=== PATIENT | male | born 1945 | race Caucasian/White ===

== ENCOUNTER → 2018-03-20 10:56 | Outpatient (CLI) | payer MEDICARE, SELFPAY ==
[2018-03-20 12:25] LABS: AST(SGOT) 28 U/L (15-37); Alanine Aminotransfer ALT/SGPT 32 U/L (16-61); Albumin, Serum 3.7 g/dL (3.2-5.0); Alkaline Phosphatase 61 U/L (45-117); Bilirubin, Direct 0.17 mg/dL (0.00-0.30); Cholesterol 130 mg/dL (200); Globulin 2.9 g/dL (2.2-4.2); High Density Lipoprotein 36 mg/dL; Protein, Total 6.6 g/dL (6.4-8.2); Triglycerides 141 mg/dL; Very Low Density Lipoprotein 28 mg/dL (5-40)
--- NOTE | 2018-03-20 12:50 | RAD_ITS ---
STUDY: SWALLOWING STUDY REASON FOR EXAM: Male, 72 years old. Dysphagia. TECHNIQUE: The examination was performed with Speech Pathology in attendance. Under fluoroscopic observation, the patient ingested thin barium, thick barium, barium pudding, and barium coated cracker. FLUOROSCOPY TIME: 0:28 minutes/seconds. 1807 fluoroscopic images were obtained. RADIOLOGIST INVOLVEMENT: Radiologist was present and providing direct supervision. COMPARISON: None. FINDINGS: The following was observed during swallowing of the various mixtures of barium: Thin Barium: There was no evidence of aspiration or laryngeal penetration. Barium Pudding: There was no evidence of aspiration or laryngeal penetration. Barium Coated Cracker: There was no evidence of aspiration or laryngeal penetration. RAD/Swallowing Function w/Video IMPRESSION: Normal tailored barium swallow study. No evidence of increased risk for aspiration. The swallow study findings were discussed with the patient by the speech pathologist at the conclusion of the examination. Please see speech pathology report for more information and recommendations. Electronically Signed: Mark Ortiz MD at 15:17 EDT Tel [phone], Service support ,
--- NOTE | 2018-03-20 13:30 | SP.MBSS_ITS ---
PRIMARY / SECONDARY DIAGNOSIS: dysphagia (R13.10) REFERRING PHYSICIAN: Dr. Pb Osorio MD CURRENT DIET: regular textures, thin liquids DENTITION: WFL MENTAL STATUS: WNL RESPIRATORY STATUS: O2 via room air PREVIOUS MODIFIED BARIUM SWALLOW STUDY: REASON FOR REFERRAL: Patient is a 72 year old male referred for a modified barium swallow (MBS) study to objectively assess the Patients oropharyngeal swallow function under fluoroscopy secondary to reported intermittent coughing with both solids and liquids that has been somewhat progressive, both the Patient and the Patients significant other unable to definitively state progression of intensity or frequency, though report onset of occurrences well after diagnosis of hemifacial spasms (early ) MEDICAL HISTORY: Hemifacial spasms, coronary artery diseases status post myocardial infarction with stent placement (x1), gastroesophageal reflux disease, hypertension, hyperlipidemia, chronic back pain, depression, benign prostate hyperplasia, nephrolithiasis, overweight STUDY FINDINGS: Patient participated in a Modified Barium Swallow (MBS) study on 03/20/2018. Dr. Ortiz was the radiologist present for this evaluation. This study was recorded in the lateral view and images were sent to PACs for storage. The following consistencies were presented to this patient for analysis of oropharyngeal swallow function: thin liquids, pudding, and a regular textured, Dalila Doone cookie. Results of the MBS are as follows: PENETRATION / ASPIRATION SCALE (BANSAL): 1 = does not enter airway 2 = enters airway/above vocal folds/ejected 3 = enters airway/above vocal folds/not ejected 4 = enters airway/contacts vocal folds/ejected 5 = enters airway/contacts vocal folds/not ejected 6 = enters airway/below vocal folds/ejected 7 = enters airway/below vocal folds/not ejected despite effort 8 = enters airway/below vocal folds/no effort VIDEOFLOROSCOPIC SCALE SCORE (BANSAL): Grade I = aspiration of material that has penetrated into the laryngeal vestibule, intact cough reflex Grade II = aspiration < 10 % of the bolus, intact cough reflex Grade III = aspiration of < 10 % of the bolus, reduced cough reflex or aspiration of > 10 % of the bolus, intact cough reflex Grade IV = aspiration of > 10 % of the bolus, reduced cough reflex PENETRATION / ASPIRATION SCALE (SCORE) WITH VIDEOFLOROSCOPIC SCALE SCORE: Thin liquid - 5 mL tsp.: 1 Thin liquids via cup (single sip): 1 Thin liquids via cup (single sip): 1 Thin liquids via cup (single sip): 1 Thin liquids via cup (sequential swallows): 2 Pudding via spoon: 1 Pudding via spoon: 1 Regular textured cookie: 6 - Grade II Regular textured cookie: 1 Thin liquids via straw (single sip): 1 Thin liquids via straw (single sip): 1 IMPRESSION: DIAGNOSIS: mild to moderate oral dysphagia (R13.11) ORAL PHASE CHARACTERIZED BY: LABIAL SEAL: no labial escape TONGUE CONTROL DURING BOLUS MANIPULATION: cohesive bolus between tongue to palatal seal BOLUS PREPARATION / MASTICATION: disorganized chewing/mashing with solid pieces of bolus unchewed BOLUS TRANSPORT / LINGUAL MOTION: brisk tongue motion ORAL RESIDUE: trace residue lining oral structures PHARYNGEAL PHASE CHARACTERIZED BY: INITIATION OF PHARYNGEAL SWALLOW: bolus head in valleculae at first hyoid excursion SOFT PALATE ELEVATION: no bolus between soft palate and pharyngeal wall LARYNGEAL ELEVATION: complete superior movement of thyroid cartilage with complete approximation of arytenoids cartilage to epiglottic petiole ANTERIOR HYOID EXCURSION: partial anterior movement EPIGLOTTIC MOVEMENT: complete epiglottic inversion LARYNGEAL VESTIBULE CLOSURE AT HEIGHT OF SWALLOW: complete laryngeal vestibule closure with no air/contrast in laryngeal vestibule PHARYNGEAL STRIPPING WAVE: pharyngeal stripping wave present / complete PHARYNGOESOPHAGEAL SEGMENT OPENING: complete distension and complete duration with no obstruction of flow TONGUE BASE RETRACTION: trace column of contrast between tongue base and posterior pharyngeal wall PHARYNGEAL RESIDUE: collection of residue within or on pharyngeal structures during trials of more viscous textures ESOPHAGEAL PHASE CHARACTERIZED BY: ESOPHAGEAL BOLUS CLEARANCE IN THE UPRIGHT POSITION: could not view EFFECTS OF TREATMENT STRATEGIES ATTEMPTED: Increased mastication duration = effective Reduced bolus volume = effective DIET TEXTURE RECOMMENDATIONS: Will recommend a mechanical soft textured, thin liquid diet. 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 Oral phase marked by mastication inefficiency with varied effectiveness, able to sufficiently break down bolus with increased mastication time and volitional effort to facilitate full bolus breakdown, though noted prandial aspiration with rather quick mastication and large unchewed portions of the bolus leading to volume overload and separation with penetration to the vocal folds with more thin / liquid portions; brief drop below the vocal folds followed by strong sufficient cough response to expel penetrated / aspirated material. All deficits ameliorated with volitional effort to increase mastication duration and bolus volume adjustments. RECOMMENDATIONS: Patient stating anticipated difficulty with adjustment of intake pattern, with recommendations to proceed with more restrictive diet textures (mechanical soft textures) until new pattern has been established, though Patient politely expressed low likelihood for compliance with recommendations, sufficiently comprehends recommendations and risk of aspiration, and will attempt to dedicatedly follow recommended compensatory strategies . If PO intolerance continues, this Patient may benefit from outpatient skilled speech-language intervention targeting continued diet texture management; training and implementation of recommended compensatory strategies; and Patient / caregiver training targeting meal preparation. ADDITIONAL COMMENTS/RECOMMENDATIONS: Results and recommendations were discussed with the Patient immediately following MBS completion, with the Patient verbalizing understanding and agreement with all recommendations and education provided. IMAGE COUNT: [id number] G-CODES: SWALLOWING [id number] Current Status: CI SWALLOWING G8997 Goal Status: CH SWALLOWING G8998 Discharge Status: CI
== END ==
PROVIDERS: Physician Assistant Medical; Family Provider Family Medicine; PCP Family Medicine; Visit Provider Family Medicine
DX: R13.10 Dysphagia, unspecified (principal); E78.5 Hyperlipidemia, unspecified; Z95.5 Presence of coronary angioplasty implant and graft
CPT/HCPCS: 36415; 74230; 80061; 80076; 92611; G8996; G8997; G8998

== ENCOUNTER → 2018-06-26 11:54 | Outpatient (CLI) | payer MEDICARE, SELFPAY ==
--- NOTE | 2018-06-26 11:58 | RAD_ITS ---
STUDY: X-RAY - ABDOMEN/PELVIS REASON FOR EXAM: Male, 72 years old. Abdominal pain TECHNIQUE: 3 views COMPARISON: None. FINDINGS: Normal visualized lung bases. There is an unremarkable bowel gas pattern. There is no demonstrated free abdominal air. There are 3 calcifications over the left renal shadow suspicious for calculi. Normal soft tissue structures. Degenerative vertebral changes. Surgical fusion at L5-S1 with laminectomy of L5. RAD/Abd Inc Decub and/or Erect IMPRESSION: Probable left renal calculi. No bowel obstruction. Electronically Signed: Robert Araujo DO at 19:17 EDT Tel [phone], Service support ,
== END ==
PROVIDERS: Family Provider Family Medicine; PCP Family Medicine; Referring Provider Family Medicine; Visit Provider Family Medicine
DX: R10.9 Unspecified abdominal pain (principal)
CPT/HCPCS: 74019

== ENCOUNTER → 2018-08-31 10:15 | Outpatient (CLI) | payer MEDICARE, SELFPAY ==
[2018-04-09 12:46] VITALS: BMI 28.6
--- NOTE | 2018-08-30 | LES_PTH ---
PATIENT: ANGEL ORTIZ LOC: [facility] U#:[id number] AGE/SX: 79/M ROOM: RE08/31/[address]: Dr. Pb Osorio MD : 1945 BED: DIS: SPEC #: [id number] RECD: 08/30/18 17:28 STATUS: JESÚS MARIKA #: [id number] NELLI: 08/30/18 00:[address]: Pb Osorio DEPT: SURGICAL PATHOLOGY RECD BY: Izaiah Rubalcava Tissues: Skin of arm Procedures: Surgery Specimen Level IV HEADER OPERATION: Suspicious lesion removal PRE-OP DIAGNOSIS: Suspicious lesion TISSUE SUBMITTED: Left upper arm lesion MICROSCOPIC DIAGNOSIS Skin lesion of left upper arm, excision: Seborrheic keratosis, hyperkeratotic type, inflamed. See comment. AM:tomas 09/03/18 COMMENT The lesion appears to have been completely excised in the planes examined. MICROSCOPIC DESCRIPTION Slides are reviewed. GROSS DESCRIPTION Received in fixative is one container labeled with the patient's name and designated left upper arm. The specimen consists of a light wang excised skin fragment measuring 2.2 x 1.2 x 0.2 cm. The specimen is inked, serially sectioned and totally submitted in one cassette. / AM:tomas 09/02/18 TC:[facility]: [id number]
--- OUTSIDE RECORDS SUMMARY | 2018-10-25 19:45 | XMS RPT_ITS ---
:1945 Author Organization OHIP Care Team Providers Name Role Phone Pb Mcneil Attending Unavailable Pb Mcneil Referring Unavailable Pb Mcneil Primary Care Unavailable Samaria Dunne Attending Unavailable Carlos Willis Referring Unavailable Pb Mcneil Primary Care Unavailable Cameron Leung Attending Unavailable Pb Mcneil Primary Care Unavailable Cameron Leung Referring Unavailable Pb Mcneil Attending Unavailable Pb Mcneil Referring Unavailable Pb Mcneil Primary Care Unavailable Samaria Dunne Consulting Unavailable Janny Humphries Attending Unavailable Jaime Fletcher Attending Unavailable Pb Mcneil Referring Unavailable Mcneil, Pb Primary Care Unavailable Mcneil, Pb Attending Unavailable Mcneil, Pb Referring Unavailable Mcneil, Pb Primary Care Unavailable Mcneil, Pb Attending Unavailable Mcneil, Pb Referring Unavailable Mcneil, Pb Primary Care Unavailable PROBLEMS PROBLEMS DATE TYPE CONDITION / CODE ATTENDING STATUS SOURCE 09/16/2018 Unknown I25.10 - Pb Mcneil Active [place] Atherosclerotic heart Community disease of [facility] coronary artery Repository without angina pectoris / I25.10(ICD-10) 06/26/2018 Unknown R10.9 - Unspecified McneilPb lennon Active [place] abdominal pain / Community R10.9(ICD-10) Hospital Repository 04/09/2018 Unknown Z95.5 - Presence of Justine, [place] Active [place] coronary angioplasty Community implant and graft / Hospital Z95.5(ICD-10) Repository 04/09/2018 Unknown I10 - Essential Justine, [place] Active [place] (primary) Community hypertension / Hospital I10(ICD-10) Repository 04/09/2018 Unknown E78.00 - Pure Justine, [place] Active [place] hypercholesterolemia, Community unspecified / Hospital E78.00(ICD-10) Repository 03/20/2018 Unknown E78.5 - McneilPb lennon Active [place] Hyperlipidemia, Community unspecified / Hospital E78.5(ICD-10) Repository 10/12/2017 Unknown Z87.442 - Personal XochitlCameron Active [place] history of urinary Rahul Community calculi / Hospital Z87.442(ICD-10) Repository PROCEDURES PROCEDURES No Procedure Records FoundRESULTS RESULTS BASIC METABOLIC Collected: 09/16/2018 Status: F Source: [place] PROFILE (BMP) 11:[address] [facility] H[facility] REPOSITORY TYPE CODE TESTS RESULT OUT OF RANGE REFERENCE UNITS LAB L501.0100 74-106 mg/dL Normal GLU 93 Result Comment: Please note revised GLUCOSE reference range effective 2017. LAB L501.1000 7-18 mg/dL Normal BUN 11 LAB L501.1100 0.70-1.30 mg/dL Normal CREAT,SERUM 0.94 Result Comment: The validity of the calculated GFR AND GFRAA in patients over 70 years has not been determined. Clinical correlation is essential. LAB L501.1110 >60 mL/min Normal EST GFR 84 Result Comment: Non- GFR Calc LAB L501.1115 >60 mL/min Normal EST GFR - AA 101 Result Comment: GFR Calc LAB L501.1300 10-20 RATIO Normal BUN/CRE 11.8 LAB L501.2200 8.5-10.1 mg/dL CA Normal 8.5 LAB L501.5300 136-145 mmol/L High NA 146 LAB L501.5600 3.5-5.1 mmol/L K Normal 4.6 LAB L501.5900 98-107 mmol/L High CL 108 LAB L501.6100 21.0-32.0 mmol/L Normal CO2 30.0 LAB L501.6200 5-15 Normal GAP 8 Performed By: #### L500.2500 #### [facility] [address] [place], [place], [id number] LIVER PROFILE Collected: 09/16/2018 Status: F Source: [place] 11:15 AM [facility] REPOSITORY TYPE CODE TESTS RESULT OUT OF RANGE REFERENCE UNITS LAB L501.1500 6.4-8.2 g/dL Normal T PROT 6.5 LAB L501.1800 3.2-5.0 g/dL Normal ALB 3.8 LAB L501.1950 2.2-4.2 g/dL Normal GLOB 2.7 LAB L501.4100 15-37 U/L Normal AST 22 LAB L501.4305 45-117 U/L Normal ALK P 62 LAB L501.4405 16-61 U/L Normal ALT 28 LAB L501.4600 0.20-1.00 mg/dL Normal T BILI 0.80 LAB L501.4700 0.00-0.30 mg/dL Normal D BILI 0.22 Performed By: #### L500.3400, L500.4100 #### [facility] [address] [place], [address] LIPID PROFILE Collected: 09/16/2018 Status: F Source: [place] 11:15 AM [facility] REPOSITORY TYPE CODE TESTS RESULT OUT OF RANGE REFERENCE UNITS LAB L501.4900 200 mg/dL Normal CHOL 124 Result Comment: <200 mg/dL Desirable 200-240 mg/dL Borderline >240 mg/dL High Risk LAB L501.5000 mg/dL Normal TRIG 121 Result Comment: The drugs N-Acetylcysteine and Metamizole may falsely depress this assay. Serum Triglycerides Reference Interval Normal <150 mg/dL Borderline high 150 - 199 mg/dL High 200 - 499 mg/dL Very High > or = 500 mg/dL LAB L501.6400 mg/dL Low HDL 39 Result Comment: The drugs N-Acetylcysteine and Metamizole may falsely depress this assay. Reference Range HDL <40 mg/dL Low HDL Cholesterol HDL >or= 60 mg/dL High HDL Cholesterol LAB L501.6500 0-130 mg/dL Normal LDL 61 LAB L501.6600 5-40 mg/dL Normal VLDL 24 Performed By: #### L500.3400, L500.4100 #### [facility] [address] [place], [address] LESION (CHOOSE SITE) Observed: 08/30/2018 Status: F Source: [place] 12:00 AM [facility] REPOSITORY Patient: ANGEL ORTIZ : 1945 (73/M) Acct Num: [id number] Phys: Devon BELTRAN,Pb Unit Num: [id number] Loc: LABSPEC Specimen: [id number] Received: 08/30/181727 Spec Type: Lesion TISSUES 1 TISSUES: Skin of arm COMMENT The lesion appears to have been completely excised in the planes examined. GROSS DESCRIPTION Received in fixative is one container labeled with the patient's name and designated left upper arm. The specimen consists of a light wang excised skin fragment measuring 2.2 x 1.2 x 0.2 cm. The specimen is inked, serially sectioned and totally submitted in one cassette. / AM:tomas 09/02/18 TC:5 CPT: 59033 HEADER OPERATION: Suspicious lesion removal PRE-OP DIAGNOSIS: Suspicious lesion TISSUE SUBMITTED: Left upper arm lesion MICROSCOPIC DESCRIPTION Slides are reviewed. MICROSCOPIC DIAGNOSIS Skin lesion of left upper arm, excision: Seborrheic keratosis, hyperkeratotic type, inflamed. See comment. AM:tomas 09/03/18 Signed Betito Torres 09/03/18 <signature on file> Performed By: #### PLES #### [facility] [address] [place], [address] ABD INC DECUB Observed: 06/26/2018 Status: F Source: [place] AND/OR ERECT 11:58 AM [facility] REPOSITORY [facility] Imaging Services [address] [place] [address] Abd Inc Decub and/or Erect MR#: [id number] Acct: [id number] Name: ANGEL ORTIZ Rep #: [id number] : 1945 M 72 From: Robert Araujo DO PCP: Pb Mcneil MD Status: REG CLI Study: Abd Inc Decub and/or Erect Date of Exam: 06/26/18 Exam# [id number] Ordering Dr: Pb Mcneil MD STUDY: X-RAY - ABDOMEN/PELVIS REASON FOR EXAM: Male, 72 years old. Abdominal pain TECHNIQUE: 3 views COMPARISON: None. FINDINGS: Normal visualized lung bases. There is an unremarkable bowel gas pattern. There is no demonstrated free abdominal air. There are 3 calcifications over the left renal shadow suspicious for calculi. Normal soft tissue structures. Degenerative vertebral changes. Surgical fusion at L5-S1 with laminectomy of L5. RAD/Abd Inc Decub and/or Erect IMPRESSION: Probable left renal calculi. No bowel obstruction. Electronically Signed: Robert Araujo DO at 19:17 EDT Tel [phone], Service support , CC: Pb Mcneil MD Card Cutter Helper: Signed CARDIOLOGY VISIT Observed: 04/09/2018 Status: F Source: [place] REPORT 1:45 PM [facility] REPOSITORY [facility] [address] [place] [address] OFFICE VISIT Date of Service: 04/09/18 MR#: [id number] Acct: [id number] Name: ANGEL ORTIZ Rep #: [id number] : 1945 Provider: Jaime Fletcher MD Age/Sex: 72/M Location: [facility] Status: Signed HPI HPI Chief Complaint: Follow up Details: ANGEL ORTIZ, is a 72 M who presents to the office today for a cardiovascular follow-up. He has a history of coronary artery disease with angioplasty and stenting of his LAD in 1998. Patient had a stress test in 2013 that was negative for ischemia. Echocardiogram at that time demonstrated normal LV size with an estimated ejection fraction of 65%. Trivial tricuspid and aortic insufficiency. Heart catheterization in 2012 demonstrated angiographically normal left main, LAD approximately 40-50% in-stent stenosis. Circumflex mild disease. Codominant right coronary with distal disease noted in the posterior descending and posterior lateral vessel. It was felt that the posterior lateral vessel was distal and did not subtend to a significant portion of the coronary artery and thus medical management was recommended. Overall patient is doing well. He does not have any chest discomfort/heaviness or tightness. He does walk 1-1-1/2 miles a day without any issues. He does not have any worsening shortness of breath. He does not have any orthopnea. He does not have any palpitations. He does not have any lightheadedness, dizziness or syncopal episodes. He does not have any claudication or lower extremity edema. His physical exam today demonstrates clear lung casper regular rate and rhythm and no pedal edema. Intake Vital Signs04/09/18 Height 5 ft 5 in 04/09/18 Weight: 172 lb 04/09/18 Body Mass Index (BMI) 28.6 04/09/18 Blood Pressure 104/58 04/09/18 Respiratory Rate 18 04/09/18 Pulse Rate 76 Intake Visit Reasons: 6 M FU Allergies calcium carbonate [From Leisa-Wall] Allergy (Verified 04/09/18 12:46) Swelling citric acid [From Leisa-Wall] Allergy (Verified 04/09/18 12:46) Swelling niacin [From Niaspan Extended-Release] Allergy (Verified 04/09/18 12:46) unknown onabotulinumtoxinA [From Botox] Allergy (Verified 04/09/18 12:46) hives potassium bicarbonate [From Leisa-Wall] Allergy (Verified 04/09/18 12:46) Swelling sodium bicarbonate [From Leisa-Wall] Allergy (Verified 04/09/18 12:46) Swelling sulfamethoxazole [From Bactrim] Allergy (Verified 04/09/18 12:46) Upset Stomach trimethoprim [From Bactrim] Allergy (Verified 04/09/18 12:46) Upset Stomach Medications Aspirin E.C. [Ecotrin] 81 mg PO DAILY@0800 10/21/13 [History Confirmed 04/09/18] Isosorbide Mononitrate [Imdur] 30 mg PO DAILY 10/21/13 [History Confirmed 04/09/18] Rosuvastatin Calcium [Crestor] 40 mg PO QHS 10/21/13 [History Confirmed 04/09/18] gabapentin 300 mg capsule 600 mg PO QHS 90 Days #180 09/20/17 [History Confirmed 04/09/18] omeprazole 40 mg capsule,delayed release 40 mg PO QHS 90 Days #90 09/20/17 [History Confirmed 04/09/18] ranolazine ER 500 mg tablet,extended release,12 hr 500 mg PO BID 90 Days #180 09/20/17 [History Confirmed 04/09/18] Hydroxyzine Pamoate [Vistaril] 50 mg PO QHS 10/05/17 [History Confirmed 04/09/18] Ciprofloxacin [Cipro] 500 mg PO BID #14 tab 10/12/17 [Rx Confirmed 04/09/18] Hydrocodone/Acetaminophen [[place] 5-325 Tablet] 1 ea PO Q4H PRN PRN 5 Days #14 tab 10/12/17 [Rx Confirmed 04/09/18] Phenazopyridine [Pyridium] 100 mg PO TID #30 tab 10/12/17 [Rx Confirmed 04/09/18] metoprolol succinate ER 100 mg tablet,extended release 24 hr 100 mg PO DAILY #90 tab 03/12/18 [Rx Confirmed 04/09/18] PFSH Medical History Bilateral kidney stones (Chronic) Atherosclerosis of coronary artery of [place] heart without angina pectoris (Chronic) Hypertension (Chronic) Hyperlipidemia (Chronic) BPH (benign prostatic hyperplasia) (Chronic) Depression (Chronic) GERD (gastroesophageal reflux disease) (Chronic) Left nephrolithiasis (Chronic) Urethral stricture (Chronic) Surgical History History of coronary artery stent placement (Chronic 11/14/98) History of left heart catheterization (Chronic 01/09/13) S/P cystoscopy with ureteral stent placement (Chronic 10/2017) Family History Brother CAD (coronary artery disease) Diabetes Mother Diabetes Social History Smoking Status: Never smoker alcohol intake: former substance use type: does not use caffeine: No what type of physical activity do you participate in: walking frequency: 3-4 times per week duration: 15-30 minutes/day seatbelt use: always do you feel safe at home: Yes ROS Const Const: Positive for fatigue (C/O increase fatigue over the past 6 months) and other (Walks 30 minutes on treadmill daily w/o difficulty); negative for weakness, difficulty sleeping, frequent falls, headache(s) or excessive sweating Eyes Eyes: Negative for loss of peripheral vision, transient loss of vision, blurry vision or double vision ENT ENT: Negative for headache(s), dizziness, Nosebleed/epistaxis or balance problems Cardio Chest Pain: No Edema: None Muscle aches with walking: None Resp Respiratory: Negative for SOB with activity, SOB at rest, SOB orthopnea\SOB lying down or paroxysmal nocturnal dyspnea GI GI: Negative nausea or heartburn : Negative for hematuria Musc Musc: Negative for muscle aches/ myalgia, muscle weakness, joint pain or balance problems Skin Skin: Negative non-healing lesions, unusual bruising or rash Neuro Neuro: Negative for weakness, frequent falls, blurry vision, headache(s), dizziness, lightheadedness, orthostatic symptoms or double vision Kristian Hematologic/Lymphatic: Negative for easy bruising Endo Endo: Positive for fatigue (C/O increase fatigue over the past 6 months); negative for excessive sweating or increased thirst/drinking Psych Psych: Negative for anxiety or depression Allergy Allergy/Immunology: Negative for hives, Negative for rash Cardiology Exam Const Appearance: cooperative, healthy appearing, well developed, well groomed and no acute distress Nutritional Appearance: well nourished and average body habitus Orientation: alert, awake and oriented x3 Head Head: normal to inspection, normocephalic and atraumatic Ears: hearing grossly normal bilaterally and external ears normal Nose: external nose normal, nasal mucous membranes and turbinates normal, nares normal, septum normal, no nasal discharge Face and Sinus: face symmetric Mouth: oral mucosae normal, tongue normal, oropharynx normal and moist mucous membranes Teeth and gingiva: dentition normal Throat: posterior oropharynx normal, tonsils normal and uvula midline Eyes General: appearance normal, both eyes and all related structures Eyelids: eyelids normal Conjunctivae: conjunctivae normal Pupils: PERRL, normal by confrontation and accommodation normal EOM: EOM intact bilaterally Neck Neck: normal visual inspection, trachea midline and no JVD JVD: +5 Carotids: normal carotid upstroke and bounding pulses Chest Chest inspection: normal inspection of the chest, symmetric chest movement and normal respiratory effort Auscultation: Bilateral: Clear to Auscultation Cardio Palpation: normal PMI Rate: regular rate Rhythm: regular rhythm Heart sounds: S1 normal, S2 normal and normal, physiologic split S2; negative rub, gallop or murmur GI GI: normal to inspection, soft, no hepatosplenomegaly and bowel sounds present Neuro General: alert, awake, oriented x3, no focal sensory deficit, gait normal and moves all extremities Skin Skin: no rashes or lesions noted Extremities Pulses: Normal: Right Femoral Pulse, Left Femoral Pulse, Right Dorsalis Pedis Pulse, Left Dorsalis Pedis Pulse, Right Posterior Tibial Pulse, Left Posterior Tibial Pulse, Right Radial Pulse, Left Radial Pulse Lower Extremity Edema: None: Bilateral Musculoskel Musculoskeletal: No joint tenderness Psych Psychological: normal affect Assessment AND Plan 1. History of coronary artery stent placement Z95.5 AHB-Jcscl-Kwxl LAD 11/14/1998 Plan He continues to do remarkably well. At this time I would not suggest that we make any changes to his current medical therapy he should continue with his exercise and risk factor modification. Should he experience any symptoms, he should not hesitate to get in touch with us. 2. Essential hypertension I10 Plan His blood pressure is under good control on the current medical therapy and no major changes will be made. 3. Pure hypercholesterolemia E78.00 Plan He does have a history of hyperlipidemia his most recent lipid profile demonstrated total cholesterol 130, HDL 36, and LDL of 66 triglycerides level 141. Once again no changes will be made I like to see him again in a year. 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) Coding Level of Care Code Off vis,est,level 3 Diagnoses History of coronary artery stent placement Z95.5 Essential hypertension I10 Hypertension type: essential hypertension Pure hypercholesterolemia E78.00 Hyperlipidemia type: pure hypercholesterolemia Coding Level of Care Code Off vis,est,level 3 Diagnoses History of coronary artery stent placement Z95.5 Essential hypertension I10 Hypertension type: essential hypertension Pure hypercholesterolemia E78.00 Hyperlipidemia type: pure hypercholesterolemia 04/09/18 1345 <Electronically signed by Jaime Fletcher MD> Date Jaime Fletcher MD Cosigner Signature: Date (if applicable) CC: Pb Mcneil MD MODIFIED BARIUM Observed: 03/20/2018 Status: F Source: [place] SWALLOW STUDY 3:52 PM [facility] REPOSITORY [facility] Speech Pathology [address] [place] [address] Modified Barium Swallow Study MR#: [id number] Acct: [id number] Name: ANGEL ORTIZ Rep #: [id number] : 1945 72 From: Kalia Lr M.A. CFY-SMALL ENGINE MECHANIC PRIMARY / SECONDARY DIAGNOSIS: dysphagia (R13.10) REFERRING PHYSICIAN: Dr. Pb Mcneil MD CURRENT DIET: regular textures, thin liquids DENTITION: WFL MENTAL STATUS: WNL RESPIRATORY STATUS: O2 via room air PREVIOUS MODIFIED BARIUM SWALLOW STUDY: REASON FOR REFERRAL: Patient is a 72 year old male referred for a modified barium swallow (MBS) study to objectively assess the Patients oropharyngeal swallow function under fluoroscopy secondary to reported intermittent coughing with both solids and liquids that has been somewhat progressive, both the Patient and the Patients significant other unable to definitively state progression of intensity or frequency, though report onset of occurrences well after diagnosis of hemifacial spasms (early ) MEDICAL HISTORY: Hemifacial spasms, coronary artery diseases status post myocardial infarction with stent placement (x1), gastroesophageal reflux disease, hypertension, hyperlipidemia, chronic back pain, depression, benign prostate hyperplasia, nephrolithiasis, overweight STUDY FINDINGS: Patient participated in a Modified Barium Swallow (MBS) study on 03/20/2018. Dr. Ortiz was the radiologist present for this evaluation. This study was recorded in the lateral view and images were sent to PACs for storage. The following consistencies were presented to this patient for analysis of oropharyngeal swallow function: thin liquids, pudding, and a regular textured, Dalila Doone cookie. Results of the MBS are as follows: PENETRATION / ASPIRATION SCALE (BANSAL): 1 = does not enter airway 2 = enters airway/above vocal folds/ejected 3 = enters airway/above vocal folds/not ejected 4 = enters airway/contacts vocal folds/ejected 5 = enters airway/contacts vocal folds/not ejected 6 = enters airway/below vocal folds/ejected 7 = enters airway/below vocal folds/not ejected despite effort 8 = enters airway/below vocal folds/no effort VIDEOFLOROSCOPIC SCALE SCORE (BANSAL): Grade I = aspiration of material that has penetrated into the laryngeal vestibule, intact cough reflex Grade II = aspiration < 10 % of the bolus, intact cough reflex Grade III = aspiration of < 10 % of the bolus, reduced cough reflex or aspiration of > 10 % of the bolus, intact cough reflex Grade IV = aspiration of > 10 % of the bolus, reduced cough reflex PENETRATION / ASPIRATION SCALE (SCORE) WITH VIDEOFLOROSCOPIC SCALE SCORE: Thin liquid - 5 mL tsp.: 1 Thin liquids via cup (single sip): 1 Thin liquids via cup (single sip): 1 Thin liquids via cup (single sip): 1 Thin liquids via cup (sequential swallows): 2 Pudding via spoon: 1 Pudding via spoon: 1 Regular textured cookie: 6 - Grade II Regular textured cookie: 1 Thin liquids via straw (single sip): 1 Thin liquids via straw (single sip): 1 IMPRESSION: DIAGNOSIS: mild to moderate oral dysphagia (R13.11) ORAL PHASE CHARACTERIZED BY: LABIAL SEAL: no labial escape TONGUE CONTROL DURING BOLUS MANIPULATION: cohesive bolus between tongue to palatal seal BOLUS PREPARATION / MASTICATION: disorganized chewing/mashing with solid pieces of bolus unchewed BOLUS TRANSPORT / LINGUAL MOTION: brisk tongue motion ORAL RESIDUE: trace residue lining oral structures PHARYNGEAL PHASE CHARACTERIZED BY: INITIATION OF PHARYNGEAL SWALLOW: bolus head in valleculae at first hyoid excursion SOFT PALATE ELEVATION: no bolus between soft palate and pharyngeal wall LARYNGEAL ELEVATION: complete superior movement of thyroid cartilage with complete approximation of arytenoids cartilage to epiglottic petiole ANTERIOR HYOID EXCURSION: partial anterior movement EPIGLOTTIC MOVEMENT: complete epiglottic inversion LARYNGEAL VESTIBULE CLOSURE AT HEIGHT OF SWALLOW: complete laryngeal vestibule closure with no air/contrast in laryngeal vestibule PHARYNGEAL STRIPPING WAVE: pharyngeal stripping wave present / complete PHARYNGOESOPHAGEAL SEGMENT OPENING: complete distension and complete duration with no obstruction of flow TONGUE BASE RETRACTION: trace column of contrast between tongue base and posterior pharyngeal wall PHARYNGEAL RESIDUE: collection of residue within or on pharyngeal structures during trials of more viscous textures ESOPHAGEAL PHASE CHARACTERIZED BY: ESOPHAGEAL BOLUS CLEARANCE IN THE UPRIGHT POSITION: could not view EFFECTS OF TREATMENT STRATEGIES ATTEMPTED: Increased mastication duration = effective Reduced bolus volume = effective DIET TEXTURE RECOMMENDATIONS: Will recommend a mechanical soft textured, thin liquid diet. 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 Oral phase marked by mastication inefficiency with varied effectiveness, able to sufficiently break down bolus with increased mastication time and volitional effort to facilitate full bolus breakdown, though noted prandial aspiration with rather quick mastication and large unchewed portions of the bolus leading to volume overload and separation with penetration to the vocal folds with more thin / liquid portions; brief drop below the vocal folds followed by strong sufficient cough response to expel penetrated / aspirated material. All deficits ameliorated with volitional effort to increase mastication duration and bolus volume adjustments. RECOMMENDATIONS: Patient stating anticipated difficulty with adjustment of intake pattern, with recommendations to proceed with more restrictive diet textures (mechanical soft textures) until new pattern has been established, though Patient politely expressed low likelihood for compliance with recommendations, sufficiently comprehends recommendations and risk of aspiration, and will attempt to dedicatedly follow recommended compensatory strategies . If PO intolerance continues, this Patient may benefit from outpatient skilled speech-language intervention targeting continued diet texture management; training and implementation of recommended compensatory strategies; and Patient / caregiver training targeting meal preparation. ADDITIONAL COMMENTS/RECOMMENDATIONS: Results and recommendations were discussed with the Patient immediately following MBS completion, with the Patient verbalizing understanding and agreement with all recommendations and education provided. IMAGE COUNT: [id number] G-CODES: SWALLOWING [id number] Current Status: CI SWALLOWING G8997 Goal Status: CH SWALLOWING G8998 Discharge Status: CI 03/20/18 1552 <Electronically signed by Kalia Lr M.A., CFY-SMALL ENGINE MECHANIC> Date Kalia Lr M.A., CFY-SMALL ENGINE MECHANIC Co-Signature Required for all Medicare patients Date/Time Co-Signature CC: SWALLOWING FUNCTION Observed: 03/20/2018 Status: F Source: [place] W/VIDEO 12:50 PM [facility] REPOSITORY [facility] Imaging Services [address] [place] [id number] Swallowing Function w/Video MR#: [id number] Acct: [id number] Name: ANGEL ORTIZ Rep #: [id number] : 1945 M 72 From: Mark Ortiz MD PCP: Pb Mcneil MD Status: REG CL Study: Swallowing Function w/Video Date of Exam: 03/20/18 Exam# [id number] Ordering Dr: Pb Mcneil MD STUDY: SWALLOWING STUDY REASON FOR EXAM: Male, 72 years old. Dysphagia. TECHNIQUE: The examination was performed with Speech Pathology in attendance. Under fluoroscopic observation, the patient ingested thin barium, thick barium, barium pudding, and barium coated cracker. FLUOROSCOPY TIME: 0:28 minutes/seconds. 1807 fluoroscopic images were obtained. RADIOLOGIST INVOLVEMENT: Radiologist was present and providing direct supervision. COMPARISON: None. FINDINGS: The following was observed during swallowing of the various mixtures of barium: Thin Barium: There was no evidence of aspiration or laryngeal penetration. Barium Pudding: There was no evidence of aspiration or laryngeal penetration. Barium Coated Cracker: There was no evidence of aspiration or laryngeal penetration. RAD/Swallowing Function w/Video IMPRESSION: Normal tailored barium swallow study. No evidence of increased risk for aspiration. The swallow study findings were discussed with the patient by the speech pathologist at the conclusion of the examination. Please see speech pathology report for more information and recommendations. Electronically Signed: Mark Ortiz MD at 15:17 EDT Tel [phone], Service support , CC: Pb Mcneil MD Card Cutter Helper: Signed LIVER PROFILE Collected: 03/20/2018 Status: F Source: [place] 11:08 AM [facility] REPOSITORY Order Comment: SHARE WITH DR MCNEIL TYPE CODE TESTS RESULT OUT OF RANGE REFERENCE UNITS LAB L501.1500 6.4-8.2 g/dL Normal T PROT 6.6 LAB L501.1800 3.2-5.0 g/dL Normal ALB 3.7 LAB L501.1950 2.2-4.2 g/dL Normal GLOB 2.9 LAB L501.4100 15-37 U/L Normal AST 28 LAB L501.4305 45-117 U/L Normal ALK P 61 LAB L501.4405 16-61 U/L Normal ALT 32 LAB L501.4600 0.20-1.00 mg/dL Normal T BILI 0.70 LAB L501.4700 0.00-0.30 mg/dL Normal D BILI 0.17 Performed By: #### L500.3400, L500.4100 #### [facility] [address] [place], [address] LIPID PROFILE Collected: 03/20/2018 Status: F Source: [place] 11:08 AM [facility] REPOSITORY Order Comment: SHARE WITH DR MCNEIL TYPE CODE TESTS RESULT OUT OF RANGE REFERENCE UNITS LAB L501.4900 200 mg/dL Normal CHOL 130 Result Comment: <200 mg/dL Desirable 200-240 mg/dL Borderline >240 mg/dL High Risk LAB L501.5000 mg/dL Normal TRIG 141 Result Comment: The drugs N-Acetylcysteine and Metamizole may falsely depress this assay. Serum Triglycerides Reference Interval Normal <150 mg/dL Borderline high 150 - 199 mg/dL High 200 - 499 mg/dL Very High > or = 500 mg/dL LAB L501.6400 mg/dL Low HDL 36 Result Comment: The drugs N-Acetylcysteine and Metamizole may falsely depress this assay. Reference Range HDL <40 mg/dL Low HDL Cholesterol HDL >or= 60 mg/dL High HDL Cholesterol LAB L501.6500 0-130 mg/dL Normal LDL 66 LAB L501.6600 5-40 mg/dL Normal VLDL 28 Performed By: #### L500.3400, L500.4100 #### [facility] [address] [facility] [place], [address] OPERATIVE REPORT Observed: 10/12/2017 Status: F Source: [place] 11:42 AM [facility] REPOSITORY [facility] Medical Records Department [address] [place] [address] Operative Report 10/12/17 1136 MR#: [id number] Acct: [id number] Name: ANGEL ORTIZ Rep #: [id number] : 1945 72 From: Cameron Leung MD PCP: Pb Mcneil MD Status: [facility] Y Location: [place] [address] Problem List (1) Urethral stricture Status: Acute Qualifiers: Urethral stricture type: unspecified stricture type Qualified Code(s): N35.9 - Urethral stricture, unspecified (2) Calculus of left kidney Status: Acute Report of Operation Date of Procedure: 10/12/17 Pre-Operative Diagnosis: Mild urethral stricture, right kidney stone, left kidney stone Post-Operative Diagnosis: Same Surgery/Procedure Performed:: Cystoscopy and dilation of urethral stricture, right ureteroscopy laser of stone, right retrograde and right stent placement, left balloon dilation of the ureter left ureteroscopy laser of stone and left stent placement. Description of Surgical Findings:: 72-year-old male was taken back to the operating room at the smooth induction of general anesthesia he was placed in dorsal lithotomy position the penis and testicles were prepped and draped in usual sterile fashion I went into the bladder went into the urethra with a 21 Fijian rigid cystourethroscope and immediately encountered a mid urethral stricture in the membranous urethra. I had to dilate the stricture with a 14 1618 and 20 and 22 Fijian urethral dilators after this was dilated then I was able to go beyond the stricture with a 21 Fijian rigid cystourethroscope the prostate was fairly tight around the sphincter but then opened up from prior surgery I was able to identify the left ureteral orifice and the right ureteral orifice. The prostate had been resected priorly very little tissue to work on in the prostate area. No tumors or stones seen within the bladder. I think cannulated the right ureteral orifice with a Glidewire advanced as wire up into the kidney I then put a dual-lumen catheter over the wire and injected contrast to see the anatomy in place a second wire up into the kidney and then once the [address] I secured the first wire as a working wire and then over the second wire I went in with the flexible ureteroscope I was able to get in the distal ureter quite easily work my way all the way up to the kidney pulled out the working wire septic safety wire is in place and then found a stone in the midpole the right kidney stone was about 6 mm in size this was lasered and the little tiny pieces that should all pass on her own I then worked my way down the ureter left the wire in place and then went to the left side the left side I cannulated the left ureteral orifice somewhat difficult to the get the ankle right but once I cannulated this then I placed first wire then a second wire I placed a second wire as a safety wire in the first wire as a as a working wire over the working wire try to go to ureteroscope was too tight so then I went in with the balloon dilator balloon dilated the distal ureter I advanced the balloon dilator under fluoroscopic guidance once a good position I balloon dilated the distal ureter using a 12 Fijian 10 cm balloon dilator once the this was balloon dilated then I went and over the working wire with the ureteroscope work my way up to the mid ureter and then found that the safety wire had deviated from the course of the ureter some pulled his back and then and then pulled the safety wire out went in with the working wire and finally went into the kidney and the left side and then pulled the working wire out and advanced the laser fiber through and found a stone in the upper pole small stone 4 mm stone in midpole small stone again only 3 4 mm laser both the small stones but a retrograde pyelogram and then put a wire up the ureteroscope work my way down the ureter. At this point I had the wires on each side the left side of the right side I placed a stent on the right side. And then place a stent on the left side. Both the wires were pulled and the stent coiled and then I left the strings on but I cut the string so that they would not be poking at the urethra. And left them so that there were no membranous urethra. The bladder was then drained with a 18 Fijian red rubber catheter and the patient's anesthetic was reversed taken back to PACU in good condition. Type of Anesthesia:: General Drains: stent bilateral. - Admit VTE Documentation VTE Present on Admission: No VTE Mechan Device Prophylaxis: SCD's VTE Pharm Prophylaxis ordered?: No Reason prophylaxis not ordered:: Treatment Not Indicated 10/12/17 1142 <Electronically signed by Cameron Leung MD> Date Cameron Leung MD CC: Cameron Leung MD; Pb Mcneil MD Signed DISCHARGE INSTRUCTION Observed: 10/12/2017 Status: F Source: [place] 10:31 AM [facility] REPOSITORY [facility] Medical Records Department [address] [place] [address] Instructions for Home/Discharge Instructions 10/12/17 1027 MR#: [id number] Acct: [id number] Name: ANGEL ORTIZ Rep #: [id number] : 1945 72 From: Cameron Leung MD PCP: Pb Mcneil MD Status: REG [facility] Discharge Diet: Light diet - advance as tolerated Discharge Activity: Return to Normal Activity Call your doctor if you observe: Fever of 101 or Higher, Uncontrolled pain Allergies/Adverse Reactions: Allergies calcium carbonate [From Leisa-Wall] Allergy (Verified 09/08/17 15:28) Swelling citric acid [From Leisa-Wall] Allergy (Verified 09/08/17 15:28) Swelling niacin [From Niaspan Extended-Release] Allergy (Verified 09/20/17 13:33) unknown onabotulinumtoxinA [From Botox] Allergy (Verified 09/20/17 13:33) hives potassium bicarbonate [From Leisa-Wall] Allergy (Verified 09/08/17 15:28) Swelling sodium bicarbonate [From Leisa-Wall] Allergy (Verified 09/08/17 15:28) Swelling sulfamethoxazole [From Bactrim] Allergy (Verified 10/05/17 13:20) Upset Stomach trimethoprim [From Bactrim] Allergy (Verified 10/05/17 13:20) Upset Stomach Medications to take at Discharge Aspirin E.C. [Ecotrin] 81 mg PO DAILY@0800 10/21/13 Isosorbide Mononitrate [Imdur] 30 mg PO DAILY 10/21/13 Metoprolol(XL)Succ [Toprol Xl (Beta Maria R)] 100 mg PO DAILY 10/21/13 Rosuvastatin Calcium [Crestor] 40 mg PO QHS 10/21/13 duloxetine 30 mg capsule,delayed release 30 mg PO QDAY 09/20/17 gabapentin 300 mg capsule 600 mg PO QHS 90 Days #180 09/20/17 omeprazole 40 mg capsule,delayed release 40 mg PO QHS 90 Days #90 09/20/17 ranolazine ER 500 mg tablet,extended release,12 hr 500 mg PO BID 90 Days #180 17 Hydroxyzine Pamoate [Vistaril] 50 mg PO QHS 10/05/17 Ciprofloxacin [Cipro] 500 mg PO BID #14 tab 10/12/17 Hydrocodone/Acetaminophen [Panama 5-325 Tablet] 1 ea PO Q4H PRN PRN 5 Days #14 tab 10/12/17 Phenazopyridine [Pyridium] 100 mg PO TID #30 tab 10/12/17 Primary Care Physician: Pb Mcneil MD [Primary Care Provider] - Please Follow Up With: Cameron Leung MD When: Appt Oct 18 at 11:15 am, stent removal. 10/12/17 1031 <Electronically signed by Cameron Leung MD> Date Cameron Leung MD CC: Pb Mcneil MD CARDIOLOGY VISIT Observed: 09/21/2017 Status: F Source: [place] REPORT 9:29 AM [facility] REPOSITORY [facility] [address] [facility] [place] [address] OFFICE VISIT Date of Service: 09/20/17 MR#: [id number] Acct: [id number] Name: ANEGL ORTIZ Rep #: [id number] : 1945 Provider: Samaria Dunne Age/Sex: 72/M Location: [facility] Status: Signed HPI 6 M FU: Details: ANGEL ORTIZ, is a 72 M who presents to the office today for a cardiovascular follow-up. He has a history of coronary artery disease with angioplasty and stenting of his LAD in 1998. Patient had a stress test in 2013 that was negative for ischemia. Echocardiogram at that time demonstrated normal LV size with an estimated ejection fraction of 65%. Trivial tricuspid and aortic insufficiency. Heart catheterization in 2012 demonstrated angiographically normal left main, LAD approximately 40-50% in-stent stenosis. Unchanged from heart catheterization in 2000. Circumflex mild disease. Codominant right coronary with distal disease noted in the posterior descending and posterior lateral vessel. It was felt that the posterior lateral vessel was distal and did not subtend to a significant portion of the coronary artery and thus medical management was recommended. Overall patient is doing well. He does not have any chest discomfort/heaviness or tightness. He does walk 1-1-1/2 miles a day without any issues. He does not have any worsening shortness of breath. He does not have any orthopnea. He does not have any palpitations. He does not have any lightheadedness, dizziness or syncopal episodes. He does not have any claudication or lower extremity edema. Intake Vital Signs09/20/17 Body Mass Index (BMI) 28.9 09/20/17 Height 5 ft 5 in 09/20/17 Weight: 174 lb 09/20/17 Body Mass Index (BMI) 28.9 09/20/17 Blood Pressure 110/60 09/20/17 Blood Pressure Location Lt brachial Intake Visit Reasons: 6 M FU Allergies calcium carbonate [From Leisa-Wall] Allergy (Verified 09/08/17 15:28) Swelling citric acid [From Leisa-Wall] Allergy (Verified 09/08/17 15:28) Swelling niacin [From Niaspan Extended-Release] Allergy (Verified 09/20/17 13:33) unknown onabotulinumtoxinA [From Botox] Allergy (Verified 09/20/17 13:33) hives potassium bicarbonate [From Leisa-Wall] Allergy (Verified 09/08/17 15:28) Swelling sodium bicarbonate [From Leisa-Wall] Allergy (Verified 09/08/17 15:28) Swelling Medications Aspirin E.C. [Ecotrin] 81 mg PO DAILY@0800 10/21/13 [History Confirmed 09/20/17] Isosorbide Mononitrate [Imdur] 30 mg PO DAILY 10/21/13 [History Confirmed 09/20/17] Metoprolol(XL)Succ [Toprol Xl (Beta Maria R)] 100 mg PO DAILY 10/21/13 [History Confirmed 09/20/17] Multivitamins,Therapeutic [Multivitamin] 1 tab PO DAILY 10/21/13 [History Confirmed 09/20/17] Rosuvastatin Calcium [Crestor] 40 mg PO DAILY 10/21/13 [History Confirmed 09/20/17] Hydrocodone Bitart/Apap 5-325 [Panama 5/325] 1 - 2 tab PO Q4H PRN PRN #12 tab 09/08/17 [Rx Confirmed 09/20/17] duloxetine 30 mg capsule,delayed release 30 mg PO QDAY 09/20/17 [History Confirmed 09/20/17] gabapentin 300 mg capsule PO 90 Days #180 09/20/17 [History Confirmed 09/20/17] omeprazole 40 mg capsule,delayed release PO 90 Days #90 09/20/17 [History Confirmed 09/20/17] ranolazine ER 500 mg tablet,extended release,12 hr PO 90 Days #180 09/20/17 [History Confirmed 09/20/17] Ejection fraction %: 65 to 70 PFSH Medical History CAD (coronary artery disease) (Chronic) BPH (benign prostatic hyperplasia) (Chronic) GERD (gastroesophageal reflux disease) (Chronic) Back pain (Chronic) Nephrolithiasis (Chronic) Depression (Chronic) Hypertension (Chronic) Hyperlipidemia (Chronic) Surgical History S/P coronary artery stent placement (Resolved 1998) Family History Brother CAD (coronary artery disease) Diabetes Mother Diabetes Social History Smoking Status: Never smoker alcohol intake: former substance use type: does not use caffeine: No what type of physical activity do you participate in: walking frequency: 3-4 times per week duration: 15-30 minutes/day seatbelt use: always do you feel safe at home: Yes ROS Const Const: Negative for weakness, fatigue, fever(s) or headache(s) Eyes Eyes: Negative for blind spots, loss of peripheral vision or transient loss of vision ENT ENT: Negative for headache(s), Negative for dizziness, Negative for tinnitus, Negative for Nosebleed/epistaxis Cardio Chest Pain: No Palpitations: Positive for No Edema: None Muscle aches with walking: None Resp Respiratory: Negative for SOB with activity, SOB at rest or SOB orthopnea\SOB lying down GI GI: Negative nausea, vomiting, heartburn or vomiting blood/hematemesis : Negative for hematuria Musc Musc: Negative for muscle aches/ myalgia Neuro Neuro: Negative for weakness, Negative for headache(s), Negative for dizziness, Negative for near syncope, Negative for syncope, Negative for lightheadedness Kristian Hematologic/Lymphatic: Negative for easy bleeding Endo Endo: Negative for fatigue Cardiology Exam Const Appearance: cooperative, no acute distress and well developed Orientation: alert, awake and oriented x3 Head Head: normocephalic and atraumatic Mouth: moist mucous membranes Eyes General: appearance normal, both eyes and all related structures Eyelids: other (right eye muscles twitching) Conjunctivae: conjunctivae normal Pupils: PERRL EOM: EOM intact bilaterally Neck Neck: normal visual inspection, no lymphadenopathy and no JVD Carotids: Negative bruit Neck Mass: Negative Neck mass Chest Chest inspection: normal inspection of the chest and symmetric chest movement Auscultation: Bilateral: Clear to Auscultation Cardio Palpation: normal PMI Rate: regular rate Rhythm: regular rhythm Heart sounds: S1 normal and S2 normal; negative rub, gallop or murmur GI GI: normal to inspection, soft, no hepatosplenomegaly and bowel sounds present; negative tender Neuro General: alert, awake, oriented x3, CN's II-XI intact bilaterally and moves all extremities Extremities Pulses: Normal: Right Posterior Tibial Pulse, Left Posterior Tibial Pulse, Right Radial Pulse, Left Radial Pulse Lower Extremity Edema: None: Bilateral Psych Psychological: normal affect Assessment AND Plan 1. Atherosclerosis of [place] coronary artery of [place] heart without angina pectoris I25.10; I25.10; I25.10 Plan - [facility] Stable, from a cardiac standpoint patient does not have any symptoms of angina. We recommend that they continue with current aggressive medical management and risk factor modification. In regards to patient's upcoming surgery for his kidney stones do not feel that any additional cardiac testing needs to be done however would make sure that he stays on his cardiac medications such as his isosorbide, Ranexa and beta maria r throughout the perioperative phase up to and including morning of surgery. 2. Essential hypertension I10; I10; I10 Plan - [facility] Blood pressure is well controlled on current medications, we do not recommend any changes at this time. 3. Pure hypercholesterolemia E78.00; E78.00; E78.00; E78.0 Plan - [facility] Recent lipid profile demonstrates total cholesterol 130, HDL 40, LDL 59. Will continue with current medications. Plan Detail Other Medications Discontinued: Additional Comments - [facility] The above patient was discussed with Dr. Fletcher, he agrees with plan of care. Thank you for allowing us to participate in patient's plan of care, if you have any questions please do not hesitate to call. This note was generated using a voice recognition system and there may be incorrect words, spelling or punctuation errors that were not noted when reviewing the office note prior to saving. Follow Up 6 Months (COOK DESSERT) 09/20/17 1413 <Electronically signed by Samaria LARA> Date Samaria LAAR 09/21/17 8345<Electronically signed by Jaime Fletcher MD> Cosigner Signature: Date (if applicable) Jaime Fletcher MD CC: Pb Mcneil MD ALLERGIES ALLERGIES DATE TYPE / CODE NAME / CODE REACTION SEVERITY SOURCE 04/09/2018 Drug potassium Swelling Unknown [facility] Allergy/416 bicarbonate/F000 [facility] 652532(SNOM 658708(RXNORM) Repository ED CT) 04/09/2018 Drug calcium Swelling Unknown [facility] Allergy/416 carbonate/T82941 Hospital 282836(SNOM 1117(RXNORM) Repository ED CT) 04/09/2018 Drug citric Swelling Unknown [facility] Allergy/416 acid/[id number]( Hospital 616396(SNOM RXNORM) Repository ED CT) 04/09/2018 Drug sodium Swelling Unknown [facility] Allergy/416 bicarbonate/F006 Hospital 289795(SNOM 885283(RXNORM) Repository ED CT) 04/09/2018 Drug niacin/[id number] Unknown Unknown [facility] Allergy/416 2(RXNORM) Hospital 922317(SNOM Repository ED CT) 04/09/2018 Drug sulfamethoxazole Upset Stomach Unknown [facility] Allergy/416 /S326326725(RXNO Hospital 506852(SNOM RM) Repository ED CT) 04/09/2018 Drug trimethoprim/F00 Upset Stomach Unknown [facility] Allergy/234 2590747(RXNORM) Hospital 124575(SNOM Repository ED CT) 04/09/2018 Drug onabotulinumtoxi Hives Unknown [facility] Allergy/416 nA/L082806661(RX Hospital 622274(SNOM NORM) Repository ED CT) ENCOUNTERS ENCOUNTERS ADMIT/DISCHARGE ACCOUNT ADMITTING ENCOUNTER LOCATION SOURCE NUMBER CLASS 09/16/2018 [id number] Ambulatory [place] [facility] 3 [facility] ing:LAB Repository 08/31/2018 [id number] [place] [facility] ing:LABSPEC Repository 06/26/2018 [id number] Ambulatory [facility] [place] [facility] ing:MTRAD Repository 04/09/2018/ [id number] Ambulatory [facility] 8 0 [facility] Repository 04/08/2018 [id number] Ambulatory [facility] 6 [facility] Repository 03/20/2018 [id number] Ambulatory [place] Ab[facility]ashid 3 [facility] ing:RAD Repository 10/12/2017/ [id number] Ambulatory Abdirashid [place] 8 4 [facility] ing:SDC Repository 09/20/2017/ [id number] Ambulatory [facility] [place] 7 7 [facility] Repository PAYERS PAYERS ENCOUNTER GUARANTOR PAYER SUBSCRIBER SOURCE 09/16/2018 ANGEL Ingram Primary ANGEL Mendenhall [id number] Insurance:JUVENTINO ORTIZDOB: [facility]ENTER[facility]uro Mira EnergyST, MEDICARE PPOPolicy [id number] City Regional [facility] [address]Tii: Number: Repository [id number] (HP) Date:[id number] [address]: 09/16/2018 Secondary NOT GIVENUNK Abdirashid Insurance:SELF PAY [facility] Number: Effective Repository Date:2018-09-16 08/31/2018 ANGEL Ingram Primary ANGEL [place] [id number] Insurance:JUVENTINO ORTIZDOB: [facility] ROY [employer], MEDICARE PPOPolicy [id number] [place] [address]Bgc: Number: Repository [id number] (HP) Date:[id number] [address]QO: 08/31/2018 Secondary NOT GIVENUNK Abdirashid Insurance:SELF PAY [facility] Number: Effective Repository Date:2018-08-31 06/26/2018 ANGEL Ingram Primary ANGEL [place]enh[place] [id number] Insurance:ROMULOKIM CRAFTISABELADOB: [facility] ROY [employer]un[employer], MEDICARE PPOPolicy [id number] [address]Djn: Number: Repository [id number] (HP) Date:4014-10-70[address] [place] [address]OF: 06/26/2018 Secondary NOT GIVENUNK Abdirashid Insurance:SELF PAY [facility] Number: Effective Repository Date:2018-06-26 04/09/2018 ANGEL R Primary ANGEL Mendenhall [id number] Insurance:ANTHEM JENKINSDOB: [facility] [place], MEDICARE OPolicy [id number] [address]Tel: Number: Repository [id number] (HP) Date:6178-02-46[id number] [place] [address]VE: 04/09/2018 Secondary NOT GIVENUNK [place] Insurance:SELF PAY [facility] Number: Effective Repository Date:2018-04-09 04/08/2018 ANGEL R Primary ANGEL Ingram [place] [id number] Insurance:ANTHEM ANGELDOB: [facility] [place], MEDICARE PPOPolicy [id number] Ville [address]Tel: Number: Repository [id number] (HP) Date:1930-10-21[address] [place] [address]BL: 04/08/2018 Secondary NOT GIVENUNK [place] Insurance:SELF PAY [facility] Number: Effective Repository Date:2018-04-08 03/20/2018 ANGEL R Primary ANGEL Mendenhall [id number] Insurance:ANTHEM JENKINSDOB: [facility] [place], MEDICARE PPOPolicy [id number] Ville [address]Tel: Number: Repository [id number] (HP) Date:5613-11-39[address] [place] [address]DR: 03/20/2018 Secondary NOT GIVENUNK [place] Insurance:SELF PAY [facility] Number: Effective Repository Date:2018-03-13 10/12/2017 ANGEL R Primary ANGEL Mendenhall [id number] Insurance:ANTHEM JENKINSDOB: Community MANUELA WILLSON, MEDICARE PPOPolicy [id number] City Regional Health Care Corporation [address]Ppd: Number: Repository [id number] (HP) Date:2845-97-89[address]XC[address], [place] [address]EP: 10/12/2017 Secondary NOT GIVENUNK [place] Insurance:SELF PAY [facility] Number: Effective Repository Date:2017-09-10 09/20/2017 ANGEL Ingram Primary Insurance:MMO ANGEL [id number] MEDICAREPolicy JENKINSDOB: [facility] MANUELA STONEROOJIM, Number: [id number] City Regional Health Care Corporation [id number]: [id number] Repository Date:5957-22-99YH [address] (HP) [address], [place] [address]OY: 09/20/2017 Secondary NOT GIVENUNK [place] Insurance:SELF PAY [facility] Number: Effective Repository Date:2017-09-01
== END ==
PROVIDERS: Family Provider Family Medicine; PCP Family Medicine; Referring Provider Family Medicine; Visit Provider Family Medicine
DX: L98.9 Disorder of the skin and subcutaneous tissue, unspecified (principal); L82.0 Inflamed seborrheic keratosis
CPT/HCPCS: 88305

== ENCOUNTER → 2018-09-16 11:04 | Outpatient (CLI) | payer MEDICARE, SELFPAY ==
[2018-09-16 12:07] LABS: Anion Gap 8 (5-15); BUN 11 mg/dL (7-18); BUN/Creat Ratio 11.8 RATIO (10-20); Calcium,Total 8.5 mg/dL (8.5-10.1); Chloride 108 mmol/L (98-107); Creatinine, Serum 0.94 mg/dL (0.70-1.30); EST Glomerular Filtration Rate 84 mL/min (>60); Est Glom Filt Rate - Afr Amer 101 mL/min (>60); Glucose 93 mg/dL (74-106); Potassium 4.6 mmol/L (3.5-5.1); Sodium Level 146 mmol/L (136-145)
[2018-09-16 12:13] LABS: AST(SGOT) 22 U/L (15-37); Alanine Aminotransfer ALT/SGPT 28 U/L (16-61); Albumin, Serum 3.8 g/dL (3.2-5.0); Alkaline Phosphatase 62 U/L (45-117); Bilirubin, Direct 0.22 mg/dL (0.00-0.30); Cholesterol 124 mg/dL (200); Globulin 2.7 g/dL (2.2-4.2); High Density Lipoprotein 39 mg/dL; Protein, Total 6.5 g/dL (6.4-8.2); Triglycerides 121 mg/dL; Very Low Density Lipoprotein 24 mg/dL (5-40)
--- OUTSIDE RECORDS SUMMARY | 2018-12-19 00:26 | XMS RPT_ITS ---
:1945 Author Organization OHIP Care Team Providers Name Role Phone Pb Mcneil Attending Unavailable Pb Mcneil Referring Unavailable Pb Mcneil Primary Care Unavailable Pb Mcneil Attending Unavailable Pb Mcneil Referring Unavailable Pb Mcneil Primary Care Unavailable Samaria Dunne Consulting Unavailable Janny Humphries Attending Unavailable Jaime Fletcher Attending Unavailable Pb cMneil Referring Unavailable Pb Mcneil Primary Care Unavailable Pb Mcneil Attending Unavailable Pb Mcneil Referring Unavailable Pb Mcneil Primary Care Unavailable Pb Mcneil Attending Unavailable Pb Mcneil Referring Unavailable Pb Mcneil Primary Care Unavailable PROBLEMS PROBLEMS DATE TYPE CONDITION / CODE ATTENDING STATUS SOURCE 09/16/2018 Unknown I25.10 - Pb Mcneil Active [place] Atherosclerotic heart Community disease of [facility] coronary artery Repository without angina pectoris / I25.10(ICD-10) 06/26/2018 Unknown R10.9 - Unspecified Pb Mcneil Active [facility] abdominal pain / Community R10.9(ICD-10) Hospital Repository 04/09/2018 Unknown Z95.5 - Presence of Justine, Jaime Active [facility] coronary angioplasty Community implant and graft / Hospital Z95.5(ICD-10) Repository 04/09/2018 Unknown I10 - Essential Justine, Jaime Active [facility] (primary) Community hypertension / Hospital I10(ICD-10) Repository 04/09/2018 Unknown E78.00 - Pure Justine, Jaime Active [place] hypercholesterolemia, Community unspecified / Hospital E78.00(ICD-10) Repository 03/20/2018 Unknown E78.5 - Pb Mcneil Active [facility] Hyperlipidemia, Community unspecified / Hospital E78.5(ICD-10) Repository PROCEDURES PROCEDURES No Procedure Records FoundRESULTS RESULTS BASIC METABOLIC Collected: 09/16/2018 Status: F Source: ABDIRASHID PROFILE (BMP) 11:17 AM [facility] REPOSITORY TYPE CODE TESTS RESULT OUT OF [...] GAP 8 Performed By: #### L500.2500 #### [facility] [address] [place], [place], [address] LIVER PROFILE Collected: 09/16/2018 Status: F Source: [place] 11:15 AM [facility] REPOSITORY TYPE CODE TESTS RESULT OUT OF [...] 0.22 Performed By: #### L500.3400, L500.4100 #### [facility] [address] [place] [address]. [place], [place], [address] LIPID PROFILE Collected: 09/16/2018 Status: F Source: [place] 11:15 [facility] REPOSITORY TYPE CODE TESTS RESULT OUT OF [...] 24 Performed By: #### L500.3400, L500.4100 #### [facility] [address] [place], [address] LESION (CHOOSE SITE) Observed: 08/30/2018 Status: F Source: ABDIRASHID 12:00 AM [facility] REPOSITORY Patient: ANGEL ORTIZ : 1945 (73/M) Acct Num: [id number] Phys: Pb Mcneil MD Unit Num: [id number] Loc: LABSPEC Specimen: [id number] Received: 08/30/181727 Spec Type: Lesion TISSUES 1 [...] and totally submitted in one cassette. / AM: 09/02/18 TC:5 CPT: 98303 HEADER OPERATION: Suspicious lesion removal PRE-OP DIAGNOSIS: Suspicious lesion TISSUE SUBMITTED: Left upper arm lesion MICROSCOPIC DESCRIPTION Slides are reviewed. MICROSCOPIC DIAGNOSIS Skin lesion of left upper arm, excision: Seborrheic keratosis, hyperkeratotic type, inflamed. See comment. AM: 09/03/18 Signed [facility] 09/03/18 <signature on file> Performed By: #### PLES #### [facility] [address] [place], [address] ABD INC DECUB Observed: 06/26/2018 Status: F Source: ABDIRASHID AND/OR ERECT 11:58 AM [facility] REPOSITORY [facility] Imaging Services [address] [place] [address] Abd Inc Decub and/or Erect MR#: [id number] Acct: [id number] Name: ANGEL ORTIZ Rep #: [id number] : 1945 M 72 From: Robert Araujo DO PCP: Pb Mcneil MD Status: REG CLI Study: Abd Inc Decub and/or Erect Date of Exam: 06/26/18 Exam# [id number] Ordering Dr: Pb Mcneil MD STUDY: X-RAY [...] Robert Araujo DO at 19:17 EDT Tel [phone], Service support , CC: Pb Mcneil MD Dock Hand: Signed CARDIOLOGY VISIT Observed: 04/09/2018 Status: F Source: [place] REPORT 1:45 PM [facility] REPOSITORY [facility] [address] [place] [address]. [address] [place] [address] OFFICE VISIT Date of Service: 04/09/18 MR#: [id number] Acct: [id number] Name: ANGEL ORTIZ Rep #: [id number] : 1945 Provider: Jaime Fletcher MD Age/Sex: 72/M Location: [facility] Status: Signed HPI HPI Chief Complaint: Follow [...] 6 M FU Allergies calcium carbonate [From Leisa-[place]] Allergy (Verified 04/09/18 12:46) Swelling citric acid [From [place]] Allergy (Verified 04/09/18 12:46) Swelling niacin [From Niaspan Extended-Release] Allergy (Verified 04/09/18 12:46) unknown onabotulinumtoxinA [From Botox] Allergy (Verified 04/09/18 12:46) hives potassium bicarbonate [From [place]] Allergy (Verified 04/09/18 12:46) Swelling sodium bicarbonate [From [place]] Allergy (Verified 04/09/18 12:46) Swelling sulfamethoxazole [From [...] #14 tab 10/12/17 [Rx Confirmed 04/09/18] Hydrocodone/Acetaminophen [[place] 5-325 Tablet] 1 ea PO Q4H PRN PRN 5 Days #14 tab 10/12/17 [Rx Confirmed 04/09/18] Phenazopyridine [Pyridium] 100 mg PO TID #30 tab 10/12/17 [Rx Confirmed 04/09/18] metoprolol succinate ER 100 mg tablet,extended release 24 hr 100 mg PO DAILY #90 tab 03/12/18 [Rx Confirmed 04/09/18] PFS Medical History Bilateral kidney stones (Chronic) Atherosclerosis of coronary artery of [place] heart without angina pectoris (Chronic) Hypertension (Chronic) [...] History of coronary artery stent placement Z95.5 XUS-Hgrjb-Lirm LAD 11/14/1998 Plan He continues to do [...] year. Plan Detail Follow Up 1 Year (lifestyle consultant) Coding Level of Care Code Off vis,est,level [...] Jaime Fletcher MD> Date Jaime Fletcher MD [facility] Signature: Date (if applicable) CC: Pb Mcneil MD MODIFIED BARIUM Observed: 03/20/2018 Status: F Source: [place] SWALLOW STUDY 3:52 PM [facility] REPOSITORY [facility] Speech Pathology [address] [place] [address] Modified Barium Swallow Study MR#: [id number] Acct: [id number] Name: ANGEL ORTIZ Rep #: [id number] : 1945 72 From: Kalia Lr M.A., CFY-ELECTRONIC SEMICONDUCTOR PROCESSOR PRIMARY / SECONDARY DIAGNOSIS: dysphagia (R13.10) REFERRING [...] well 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 CFY-ELECTRONIC SEMICONDUCTOR PROCESSOR Co-Signature Required for all Medicare patients Date/Time Co-Signature CC: SWALLOWING FUNCTION Observed: 03/20/2018 Status: F Source: ABDIRASHID W/VIDEO 12:50 PM [facility] REPOSITORY [facility] Imaging Services [address] [place] [address] Swallowing Function w/Video MR#: [id number] Acct: [id number] Name: ANGEL ORTIZ Rep #: [id number] : 1945 M 72 From: Mark Ortiz MD PCP: Pb Mcneil MD Status: REG CLI Study: Swallowing Function w/Video Date of Exam: 03/20/18 Exam# [id number] Ordering Dr: Pb Mcneil MD STUDY: SWALLOWING [...] Mark Ortiz MD at 15:17 EDT Tel [phone], Service support , CC: Pb Mcneil MD Dock Hand: Signed LIVER PROFILE Collected: 03/20/2018 Status: F Source: [place] 11:08 AM [facility] REPOSITORY Order Comment: SHARE WITH DR MCNEIL [...] 0.17 Performed By: #### L500.3400, L500.4100 #### [facility] [address] [place], [address] LIPID PROFILE Collected: 03/20/2018 Status: F Source: [place] 11:08 AM [facility] REPOSITORY Order Comment: SHARE WITH DR MCNEIL [...] 28 Performed By: #### L500.3400, L500.4100 #### [facility] [address] [place], [address] ALLERGIES ALLERGIES DATE TYPE / CODE NAME / CODE REACTION SEVERITY SOURCE 04/09/2018 Drug potassium Swelling Unknown [facility] Allergy/416 bicarbonate/F000 Hospital 294761(SNOM 903308(RXNORM) Repository ED CT) 04/09/2018 Drug calcium Swelling Unknown [facility] Allergy/416 carbonate/H30519 Hospital 207849(SNOM 1117(RXNORM) Repository ED CT) 04/09/2018 Drug citric Swelling Unknown [place] [facility] Allergy/416 acid/[id number]( Hospital 518303(SNOM RXNORM) Repository ED CT) 04/09/2018 Drug sodium Swelling Unknown [facility] Community Allergy/416 bicarbonate/F006 Hospital 525207(SNOM 201226(RXNORM) Repository ED CT) 04/09/2018 Drug niacin/[id number] Unknown Unknown [facility] [facility] Allergy/416 2(RXNORM) Hospital 733962(SNOM Repository ED CT) 04/09/2018 Drug sulfamethoxazole Upset Stomach Unknown [place] [facility] Allergy/416 /U815141568(RXNO Hospital 731095(SNOM RM) Repository ED CT) 04/09/2018 Drug trimethoprim/F00 Upset Stomach Unknown [place] [facility] Allergy/651 5912539(RXNORM) Hospital 560016(SNOM Repository ED CT) 04/09/2018 Drug onabotulinumtoxi Hives Unknown [facility] Allergy/416 nA/M310711266(RX Hospital 976849(SNOM NORM) Repository ED CT) ENCOUNTERS ENCOUNTERS ADMIT/DISCHARGE ACCOUNT ADMITTING ENCOUNTER LOCATION SOURCE NUMBER CLASS 09/16/2018 [id number] [facility]LAB Repository 08/31/2018 [id number] Ambulatory [facility]id [place] 4 [facility] ing:LABSPEC Repository 06/26/2018 [id number] Ambulatory [place] 7 [facility] ing:MTRAD Repository 04/09/2018/ [id number] Ambulatory BMSBuilding:B [facility] [address] [facility] Repository 04/08/2018 [id number] Ambulatory BMSBuilding:B [place] [address] [facility] Repository 03/20/2018 [id number] Ambulatory [facility] 3 [facility] ing:RAD Repository PAYERS PAYERS ENCOUNTER GUARANTOR PAYER SUBSCRIBER SOURCE 09/16/2018 ANGEL R Primary ANGEL [place] [id number] Insurance:ANTHEM JENKINSDOB[facility] PPOPolicy [id number] [place] [address]Cbo: Number: Repository [id number] (HP) Date:2824-87-26QO [address] [place] [address] 52847IE: 09/16/2018 Secondary NOT GIVENUNK [place] Insurance:SELF PAY [facility] Number: Effective Repository Date:2018-09-16 08/31/2018 ANGEL R Primary ANGEL [place] [id number] Insurance:ANTHEM VENANCIOKINSDOB: [facility]ICARE PPOPolicy [id number] [id number]: Number: Repository [id number] (HP) Date:6788-03-88EH [address] [place] [address] 498[address]SZ: 08/31/2018 Secondary NOT GIVENUNK [place] Insurance:SELF PAY [facility] Number: Effective Repository Date:2018-08-31 06/26/2018 ANGEL R Primary ANGEL [place] [id number] Insurance:ANTHEM ANGELDOB: [facility] [place], MEDICARE PPOPolicy [id number]: Number: Repository [id number] (HP) Date:3551-10-51ZP [id number] [place] [address]12[address]IA: 06/26/2018 Secondary NOT GIVENUNK [facility] Insurance:SELF PAY [facility] Number: Effective Repository Date:2018-06-26 04/09/2018 ANGEL R Primary ANGEL [place] [id number] Insurance:JUVENTINO ORTIZDOB: [facility] [place], MEDICARE OPolicy [id number] Hospital [place] [address]Sri: Number: Repository [id number] (HP) Date:6567-48-98JA [address] [place] [address] 87[address]FX: 04/09/2018 Secondary NOT GIVENUNK [facility] Insurance:SELF PAY [facility] Number: Effective Repository Date:2018-04-09 04/08/2018 ANGEL R Primary ANGEL Ingram [place] [id number] Insurance:JUVENTINO ORTIZDOB: [facility] [place], MEDICARE [facility] [id number] [place] [address]Omo: Number: Repository [id number] (HP) Date:6041-79-00PJ [address] [place] [address] 13193KD: 04/08/2018 Secondary NOT GIVENUNK Abdirashid Insurance:SELF PAY [facility] Number: Effective Repository Date:2018-04-08 03/20/2018 ANGEL R Primary ANGEL [place] [id number] Insurance:JUVENTINO ORTIZDOB: [facility] ROY RDNEETA, MEDICARE [facility] [id number] [place] [address]Iju: Number: Repository [id number] (HP) Date:1400-04-66KK [id number] [place] [address] 25[address]FA: 03/20/2018 Secondary NOT GIVENUNK Abdirashid Insurance:SELF PAY [facility] Number: Effective Repository Date:2018-03-13
== END ==
PROVIDERS: Physician Assistant Medical; Family Provider Family Medicine; PCP Family Medicine; Referring Provider Family Medicine; Visit Provider Family Medicine
DX: I25.10 Atherosclerotic heart disease of native coronary artery without angina pectoris (principal); E78.5 Hyperlipidemia, unspecified
CPT/HCPCS: 36415; 80048; 80061; 80076

== ENCOUNTER → 2018-11-23 17:30 | Outpatient (CLI) | payer MEDICARE, SELFPAY ==
--- NOTE | 2018-11-26 17:39 | CT_ITS ---
STUDY: CT ABDOMEN AND PELVIS WITH CONTRAST REASON FOR EXAM: Male, 73 years old. Left-sided abdominal pain. Hernia repair. RADIATION DOSAGE (If Supplied By Facility): CTDIvol = ( 15.19 ) mGy, DLP = ( 855.68 ) mGycm TECHNIQUE: Transaxial images were obtained from the dome of the diaphragm to the symphysis pubis with oral contrast. Isovue 300 100 IV/Oral was administered. Sagittal and coronal images were reconstructed. Individualized dose optimization techniques were used for this CT. COMPARISON: January 02, 2014. FINDINGS: The visualized lung bases are unremarkable. The visualized portions of the heart are within normal limits. Normal liver. Normal gallbladder and extrahepatic biliary system. Normal spleen. Normal pancreas. Normal bilateral adrenal glands. Normal right kidney. Mild dilatation of left renal collecting system. Within the left renal pelvis is a 7 mm x 4 mm stone which partially contributes to the obstruction. Left ureter is not dilated. Retroaortic left renal vein. Normal visualized stomach. Normal small intestine. Normal colon. The appendix is visualized and appears normal. There is scattered atherosclerotic calcification of the abdominal aorta, without a demonstrated aneurysm. Normal inferior vena cava. Normal retroperitoneum. No intra-abdominal free air. Normal urinary bladder. There is mild enlargement of the prostate gland. Normal abdominal wall. Postoperative changes of posterior lumbar fusion at L5-S1 with bilateral rods and pedicle screws. CT/Abdomen/Pelvis WITH Contrast IMPRESSION: Mild left hydronephrosis in part secondary to a 7 mm x 4 mm stone within the renal pelvis. Mild prostate gland enlargement. Electronically Signed: Speedy Garcia MD at 4:54 EST , Service support ,
[2018-11-27 07:40] LABS: CREATININE FINGERSTICK 0.9 mg/dL (0.70-1.30); EGFR FINGERSTICK > 60.0000 mL/min (>60)
== END ==
PROVIDERS: Family Provider Family Medicine; PCP Family Medicine; Referring Provider Family Medicine; Visit Provider Family Medicine
DX: R10.9 Unspecified abdominal pain (principal)
CPT/HCPCS: 74177; Q9967

== ENCOUNTER 2018-12-17 08:09 | Day surgery (SDC) | payer MEDICARE, SELFPAY ==
[2018-12-03 13:04] VITALS: BMI 27.6
[2018-12-17] VITALS (7 sets, daily range): BP systolic 91–110; BP diastolic 57–78; PULSE 59–69; RESP 16–18; TEMP 36.6–36.9; O2SAT 94–100; BMI 27.1
--- NOTE | 2018-12-17 09:30 | COLBX_PTH ---
PATIENT: ANGEL ORTIZ LOC: EN U#:[id number] AGE/SX: 73/M ROOM: RE12/17/[address]: Dr. Kishor Tee MD : 1945 BED: DIS: 12/17/2018 SPEC #: [id number] RECD: 12/17/18 11:28 STATUS: JESÚS MARIKA #: [id number] NELLI: 12/17/18 09:[address]: Kishor Tee DEPT: SURGICAL PATHOLOGY RECD BY: Kalia Miller ENTERED: 12/17/18 13:04 SP TYPE: COLON BX OTHR DR: Dr. Pb Osorio MD Tissues: Sigmoid colon biopsy Procedures: Surgery Specimen Level IV HEADER OPERATION: Colonoscopy (MAC) PRE-OP DIAGNOSIS: LLQ pain TISSUE SUBMITTED: Sigmoid colon polyp MICROSCOPIC DIAGNOSIS Sigmoid colon polyp, biopsy: Tubular adenoma. AM:tomas 12/18/18 COMMENT Case has been reviewed in consultation with Dr. Nava who concurs with the above diagnosis. IDC:BRANT MICROSCOPIC DESCRIPTION Slides are reviewed. GROSS DESCRIPTION Received in fixative is one container labeled with the patient's name and designated sigmoid colon polyp. The specimen consists of one irregular fragment of light wang soft tissue that measures 0.3 x 0.3 x 0.1 cm. Also present in the container are multiple minute fragments of tissue measuring <0.1 cm in greatest dimension. The specimen is totally submitted in one cassette. / BRANT:tomas 12/17/18 TC:5 CPT: 64432
--- NOTE | 2018-12-17 09:37 | OP.ENDO_ITS ---
12/17/2018 Pb Osorio MD [address] [id number] Re : Colonoscopy procedure for Louis Mtz Dear Dr. Osorio This procedure was performed on Monday, December 17, 2018. My impressions and recommendations are as follows: Impressions : - One polyp in the sigmoid colon, removed with a hot snare. Resected and retrieved. - The examination was otherwise normal on direct and retroflexion views. Recommendations : - Discharge patient to home. - Resume previous diet. - Continue present medications. - Physician's office will call you with pathology results and recommendations for when to repeat colonoscopy. - Repeat colonoscopy for surveillance. - Repeat colonoscopy date to be determined after pending pathology results are reviewed for surveillance based on pathology results. - Resume aspirin at prior dose tomorrow. My findings are described in the full procedure note, which is enclosed. If I can be of further assistance, please feel free to contact me at Doctor phone number(s): , Work: . Sincerely, Kishor Tee MD 12/17/2018 9:36:57 AM This report has been signed electronically.
== END 2018-12-17 10:31 | disposition home or self-care (01) ==
LOC: EN 08:10 → AC 08:11
PROVIDERS: Family Provider Family Medicine; PCP Family Medicine; Referring Provider Surgery; Visit Provider Surgery
PROC: 0DJD8ZZ Inspection of Lower Intestinal Tract, Via Natural or Artificial Opening Endoscopic (ICD-10-PCS; CPT 45378; principal; 2018-12-17 09:25)
DX: D12.5 Benign neoplasm of sigmoid colon (principal); R10.32 Left lower quadrant pain; K21.9 Gastro-esophageal reflux disease without esophagitis; I25.10 Atherosclerotic heart disease of native coronary artery without angina pectoris; I10 Essential (primary) hypertension; E78.5 Hyperlipidemia, unspecified; Z95.5 Presence of coronary angioplasty implant and graft; Z79.82 Long term (current) use of aspirin; Z79.899 Other long term (current) drug therapy
CPT/HCPCS: 45385; 88305; J7120

== ENCOUNTER → 2018-12-23 10:49 | Outpatient (CLI) | payer MEDICARE, SELFPAY ==
[2018-12-17 08:34] VITALS: BMI 27.1
--- NOTE | 2018-12-23 10:53 | RAD_ITS ---
STUDY: X-RAY CHEST REASON FOR EXAM: Male, 73 years old. Cough. TECHNIQUE: PA and lateral views of the chest. COMPARISON: None. FINDINGS: The lungs are clear and expanded. There is no demonstrated pleural abnormality. Normal size heart. Normal mediastinum and latesha. Normal visualized pulmonary arteries. Normal visualized aortic arch and descending thoracic aorta. There are diffuse degenerative changes of the visualized thoracic spine. There is degenerative osteoarthritis of the bilateral shoulders. There is no demonstrated abnormality of the visualized soft tissue structures of the upper abdomen. RAD/Chest PA and Lateral IMPRESSION: Degenerative changes without acute cardiopulmonary abnormality. Electronically Signed: Randall Nance DO at 9:54 EDT Tel [phone], Service support ,
== END ==
PROVIDERS: Family Provider Family Medicine; PCP Family Medicine; Referring Provider Family Medicine; Visit Provider Family Medicine
DX: R05 Cough (principal)
CPT/HCPCS: 71046

== ENCOUNTER → 2019-01-20 13:36 | Outpatient (CLI) | payer MEDICARE, SELFPAY ==
[2018-12-17 08:34] VITALS: BMI 27.1
--- NOTE | 2019-01-20 13:40 | RAD_ITS ---
STUDY: X-RAY - ABDOMEN/PELVIS REASON FOR EXAM: Male, 73 years old. Kidney stones TECHNIQUE: Two AP supine views of the abdomen and pelvis. COMPARISON: Previous study of 06/26/2018 FINDINGS: Normal visualized lung bases. There is an unremarkable bowel gas pattern. There is no demonstrated free abdominal air. There are 3 radiopacities overlying the lower pole of the left kidney, the largest measuring 0.9 x 0.4 cm and the smallest approximately 1 x 3 mm. These are compatible with renal calculi, and appears similar to the prior study of 06/26/2018. Normal soft tissue structures. There is status post posterior spinal fusion changes with rods and interpedicular screws at the L5-S1 level. RAD/Abdomen Single View IMPRESSION: 3 radiopacities consistent with renal calculi overlying the lower pole of the left kidney, appearing similar to the previous study. Status post posterior spinal fusion changes with rods and interpedicular screws at the L5-S1 level. Electronically Signed: Armand Galvin MD at 22:20 EDT , Service support ,
== END ==
PROVIDERS: Family Provider Family Medicine; PCP Family Medicine; Referring Provider Urology; Visit Provider Urology
DX: N20.0 Calculus of kidney (principal)
CPT/HCPCS: 74018

== ENCOUNTER 2019-01-22 08:26 | Day surgery (SDC) | payer MEDICARE, SELFPAY ==
[2018-12-17 08:34] VITALS: BMI 27.1
[2019-01-22 08:53] VITALS: BP 112/69; PULSE 66; RESP 16; TEMP 36.9; O2SAT 97; BMI 27.1
[2019-01-22] MEDS: Cefazolin 2 GM in 0.9% Normal Saline 100 ML IV (10:41)
--- NOTE | 2019-01-22 11:28 | PCM.DC.URO ---
Discharge Diet: Light diet - advance as tolerated Discharge Activity: No Restrictions Allergies/Adverse Reactions: Allergies calcium carbonate [From Leisa-[place]] Allergy (Verified 01/21/19 09:23) Swelling citric acid [From [place]] Allergy (Verified 01/21/19 09:23) Swelling niacin [From Niaspan Extended-Release] Allergy (Verified 01/21/19 09:23) unknown onabotulinumtoxinA [From Botox] Allergy (Verified 01/21/19 09:23) hives potassium bicarbonate [From [place]isa-[place]] Allergy (Verified 01/21/19 09:23) Swelling sodium bicarbonate [From [place]] Allergy (Verified 01/21/19 09:23) Swelling sulfamethoxazole [From Bactrim] Allergy (Verified 01/21/19 09:23) Upset Stomach trimethoprim [From Bactrim] Allergy (Verified 01/21/19 09:23) Upset Stomach Medications to take at Discharge Aspirin E.C. [Ecotrin] 81 mg PO DAILY@0800 10/21/13 gabapentin 300 mg capsule 600 mg PO QHS 90 Days #180 09/20/17 omeprazole 40 mg capsule,delayed release 40 mg PO QHS 90 Days #90 09/20/17 Hydroxyzine Pamoate [Vistaril] 50 mg PO QHS 10/05/17 ranolazine ER 500 mg tablet,extended release,12 hr 500 mg PO BID #180 tab 04/23/18 Dicyclomine HCl 20 mg PO TID 12/11/18 Isosorbide Mononitrate [Imdur] 30 mg PO DAILY 12/11/18 Metoprolol(XL)Succ [Toprol Xl (Beta Maria R)] 100 mg PO DAILY 12/11/18 Rosuvastatin Calcium [Crestor] 40 mg PO QHS 12/11/18 Primary Care Physician: Pb Osorio MD [Primary Care Provider] - Test Results: Test results from this visit will be discussed in further detail at your follow-up appointment, if applicable. Please Follow Up With: Cameron Leung MD When: in 2 weeks, please call to make an appointment.
--- NOTE | 2019-01-22 11:29 | PCM.OPRPT ---
Report of Operation Date of Procedure: 01/22/19 Pre-Operative Diagnosis: left renal calculi Post-Operative Diagnosis: Same Surgery/Procedure Performed:: Left extrapleural shockwave lithotripsy Description of Surgical Findings:: 73-year-old male with multiple stone the left kidney today we will proceed with shockwave lithotripsy. He was taken back to the operating room at the smooth induction of general anesthesia he was placed supine on the table he was then placed in supine position the lithotripter was brought underneath the patient we found a stone in the lower pole of the left kidney we then proceeded with shockwave lithotripsy a total of 3000 shockwaves were delivered to the stone at the end of the treatment cycle stone are broken up but could still see the fragments decide that the place a stent patient anesthetic is currently being reversed we will see him back in a few weeks with a KUB its possible he may need more treatments. Type of Anesthesia:: General - Admit VTE Documentation VTE Present on Admission: No VTE Mechan Device Prophylaxis: SCD's
[2019-01-22 11:34] VITALS: BP 112/69; BP 114/63; PULSE 67; RESP 16; TEMP 36.8; O2SAT 95
[2019-01-22 11:45] VITALS: BP 112/69; BP 113/66; PULSE 62; RESP 16; O2SAT 96
[2019-01-22 12:00] VITALS: BP 109/72; BP 112/69; PULSE 68; RESP 16; O2SAT 94
[2019-01-22 12:10] VITALS: BP 101/73; BP 112/69; PULSE 67; RESP 16; TEMP 37.2; O2SAT 96
[2019-01-22 13:00] VITALS: BP 112/69; BP 129/73; PULSE 62; RESP 16; TEMP 36.4; O2SAT 98
== END 2019-01-22 13:02 | disposition home or self-care (01) ==
LOC: SDC 08:26 → AC 08:28
PROVIDERS: Family Provider Family Medicine; PCP Family Medicine; Referring Provider Urology; Visit Provider Urology
PROC: (CPT 50590; principal; 2019-01-22 10:35)
DX: N20.0 Calculus of kidney (principal); Z87.442 Personal history of urinary calculi; I25.10 Atherosclerotic heart disease of native coronary artery without angina pectoris; I25.2 Old myocardial infarction; I10 Essential (primary) hypertension; E78.00 Pure hypercholesterolemia, unspecified; K21.9 Gastro-esophageal reflux disease without esophagitis; Z95.5 Presence of coronary angioplasty implant and graft; Z79.82 Long term (current) use of aspirin; Z79.899 Other long term (current) drug therapy
CPT/HCPCS: 00873; 50590; J7120; J2405

== ENCOUNTER → 2019-02-04 12:25 | Outpatient (CLI) | payer MEDICARE, SELFPAY ==
[2019-01-22 08:53] VITALS: BMI 27.1
--- NOTE | 2019-02-04 12:29 | RAD_ITS ---
STUDY: X-RAY - ABDOMEN/PELVIS REASON FOR EXAM: Male, 73 years old. Left-sided kidney stone TECHNIQUE: Single AP view of the abdomen / pelvis. COMPARISON: 01/20/2019 FINDINGS: There is a moderate amount of colonic fecal material. There is no demonstrated free abdominal air. Again noted are punctate stones in the left kidney shadow region. One of the larger stones is not clearly seen. The largest stone currently noted is 5.6 mm. Normal soft tissue structures. Stable lumbar fusion RAD/Abdomen Single View IMPRESSION: Continuous stones in the left renal shadow region. One of the larger stones is not clearly seen on today's exam. Largest stone as above Electronically Signed: Salvador Colbert DO at 12:23 EDT Tel , Service support ,
== END ==
PROVIDERS: Family Provider Family Medicine; PCP Family Medicine; Referring Provider Urology; Visit Provider Urology
DX: N20.0 Calculus of kidney (principal)
CPT/HCPCS: 74018

== ENCOUNTER → 2019-03-11 10:17 | Outpatient (CLI) | payer MEDICARE, SELFPAY ==
[2019-03-11 11:58] LABS: BUN 12 mg/dL (7-18); Glucose 109 mg/dL (74-106)
[2019-03-11 11:59] LABS: ALB/GLOB Ratio 1.2 RATIO (0.9-2.4); AST(SGOT) 21 U/L (15-37); Alanine Aminotransfer ALT/SGPT 23 U/L (16-61); Albumin, Serum 3.7 g/dL (3.2-5.0); Alkaline Phosphatase 75 U/L (45-117); Anion Gap 6 (5-15); BUN/Creat Ratio 13.3 RATIO (10-20); Calcium,Total 8.7 mg/dL (8.5-10.1); Chloride 108 mmol/L (98-107); Cholesterol 122 mg/dL (200); EST Glomerular Filtration Rate 87 mL/min (>60); Est Glom Filt Rate - Afr Amer 106 mL/min (>60); High Density Lipoprotein 36 mg/dL; Potassium 4.3 mmol/L (3.5-5.1); Protein, Total 6.7 g/dL (6.4-8.2); Sodium Level 145 mmol/L (136-145); Triglycerides 115 mg/dL; Very Low Density Lipoprotein 23 mg/dL (5-40)
== END ==
PROVIDERS: Family Provider Family Medicine; PCP Family Medicine; Referring Provider Family Medicine; Visit Provider Family Medicine
DX: E78.5 Hyperlipidemia, unspecified (principal)
CPT/HCPCS: 36415; 80053; 80061

== ENCOUNTER → 2019-07-24 09:47 | Outpatient (CLI) | payer MEDICARE, SELFPAY ==
[2019-04-25 12:26] VITALS: BMI 26.9
--- NOTE | 2019-07-24 09:51 | MRI_ITS ---
STUDY: MRI BRAIN WITH AND WITHOUT CONTRAST REASON FOR EXAM: Male, 73 years old. left clonic facial spasm since 2000 TECHNIQUE: Standardized multiplanar fat and water weighted pulse sequences were obtained. IV Dotarem 15 was administered for the contrast portion of the examination. COMPARISON: None. FINDINGS: There is mild cerebral atrophy with widening of the extra-axial spaces and ventricular dilatation. There are a limited number of small white matter hyperintensities, distributed throughout the deep white matter tracts of the cerebral hemispheres, consistent with mild chronic white matter ischemic changes. Normal bilateral basal ganglia. Normal thalami. There is no extra-axial fluid accumulation. Normal flow voids within the major intracranial circulation suggesting patency by spin echo criteria. Normal venous enhancement. There is no enhancing intra-axial or extra-axial abnormality. Normal sella turcica, pituitary gland, infundibular stalk, optic chiasm and hypothalamus. Normal tectal plate and pineal gland. Normal midbrain, mazin and medulla. Normal cerebellum. Normal basal cisterns. There is mucoperiosteal inflammatory disease of the paranasal sinuses consistent with mild chronic sinusitis. MRI/Brain W/WO Contrast IMPRESSION: No acute intracranial abnormality or masses. Mild chronic white matter ischemic changes Electronically Signed: Victor Hugo Ramirez MD at 13:54 EDT Tel , Service support ,
[2019-07-24 10:46] LABS: CREATININE FINGERSTICK 0.8 mg/dL (0.70-1.30); EGFR FINGERSTICK > 60.0000 mL/min (>60)
== END ==
PROVIDERS: Family Provider Family Medicine; PCP Family Medicine; Referring Provider Psychiatry & Neurology Neurology; Visit Provider Psychiatry & Neurology Neurology
DX: G51.32 Clonic hemifacial spasm, left (principal); R27.0 Ataxia, unspecified
CPT/HCPCS: 70553; A9575

== ENCOUNTER → 2019-09-09 10:26 | Outpatient (CLI) | payer MEDICARE, SELFPAY ==
[2019-04-25 12:26] VITALS: BMI 26.9
[2019-09-09 11:53] LABS: Anion Gap 3 (5-15); BUN 14 mg/dL (7-18); BUN/Creat Ratio 13.7 RATIO (10-20); Calcium,Total 8.7 mg/dL (8.5-10.1); Chloride 109 mmol/L (98-107); Creatinine, Serum 1.02 mg/dL (0.70-1.30); EST Glomerular Filtration Rate 76 mL/min (>60); Est Glom Filt Rate - Afr Amer 91 mL/min (>60); Glucose 97 mg/dL (74-106); Potassium 4.5 mmol/L (3.5-5.1); Sodium Level 142 mmol/L (136-145)
== END ==
PROVIDERS: Family Provider Family Medicine; PCP Family Medicine; Referring Provider Family Medicine; Visit Provider Family Medicine
DX: E78.5 Hyperlipidemia, unspecified (principal)
CPT/HCPCS: 36415; 80048

== ENCOUNTER → 2020-03-10 09:53 | Outpatient (CLI) | payer MEDICARE, SELFPAY ==
[2019-04-25 12:26] VITALS: BMI 26.9
[2020-03-10 12:35] LABS: Anion Gap 6 (5-15); BUN 13 mg/dL (7-18); BUN/Creat Ratio 11.9 RATIO (10-20); Calcium,Total 9.3 mg/dL (8.5-10.1); Chloride 106 mmol/L (98-107); Cholesterol 118 mg/dL (200); Creatinine, Serum 1.09 mg/dL (0.70-1.30); EST Glomerular Filtration Rate 70 mL/min (>60); Est Glom Filt Rate - Afr Amer 85 mL/min (>60); Glucose 99 mg/dL (74-106); High Density Lipoprotein 37 mg/dL; Potassium 4.8 mmol/L (3.5-5.1); Sodium Level 142 mmol/L (136-145); Triglycerides 107 mg/dL; Very Low Density Lipoprotein 21 mg/dL (5-40)
[2020-03-13 03:07] LABS: Alternaria alternata <0.10 kU/L (Class 0); Aspergillus fumigatus <0.10 kU/L (Class 0); Bahia Grass <0.10 kU/L (Class 0); Bermuda Grass <0.10 kU/L (Class 0); Bluegrass, Kentucky <0.10 kU/L (Class 0); Cat Hair/Dander, Standard <0.10 kU/L (Class 0); Cedar, Mountain <0.10 kU/L (Class 0); Cladosporium herbarum <0.10 kU/L (Class 0); Cockroach, American <0.10 kU/L (Class 0); D farinae Mite 0.41 kU/L (Class I); D pteronyssinus 0.64 kU/L (Class II); Dog Epithelia <0.10 kU/L (Class 0); Elm, American White <0.10 kU/L (Class 0); Hazelnut Tree <0.10 kU/L (Class 0); Hickory, White <0.10 kU/L (Class 0); Johnson Grass <0.10 kU/L (Class 0); Maple/Box Elder <0.10 kU/L (Class 0); Mucor racemosus <0.10 kU/L (Class 0); Mugwort <0.10 kU/L (Class 0); Mulberry, White <0.10 kU/L (Class 0); Oak, White <0.10 kU/L (Class 0); Penicillium chrysogen <0.10 kU/L (Class 0); Pigweed, Rough <0.10 kU/L (Class 0); Plantain, English <0.10 kU/L (Class 0); Ragweed, Short/Common <0.10 kU/L (Class 0); Sheep Sorrel(Dock) <0.10 kU/L (Class 0); Stemphylium herbarum <0.10 kU/L (Class 0); Sweet Gum <0.10 kU/L (Class 0); Sycamore, American <0.10 kU/L (Class 0)
[2020-03-13 11:11] LABS: Nettle <0.10 kU/L (Class 0)
== END ==
PROVIDERS: PCP Family Medicine; Visit Provider Family Medicine
DX: E78.5 Hyperlipidemia, unspecified (principal); T78.40XA Allergy, unspecified, initial encounter
CPT/HCPCS: 36415; 80048; 80061; 86003

== ENCOUNTER → 2020-05-05 06:38 | Outpatient (CLI) | payer MEDICARE, SELFPAY ==
[2020-04-22 13:34] VITALS: BMI 28.8
--- NOTE | 2020-05-05 08:47 | STRESSREP_ITS ---
Stress Test Report Exercise myocardial perfusion stress test. 74-year-old man with a history of previous coronary artery bypass surgery. Stress protocol: Resting EKG demonstrates normal sinus rhythm with a rate of 60 bpm and an incomplete right bundle branch block resting blood pressure is 118/64 mmHg. The patient exercised according to regular Jt protocol for a total duration of 6 minutes the maximum heart rate attained was 102 bpm which was 70% of max impacted heart rate. Maximum workload was 7 metabolic equivalents. Patient is noted to be on a beta-jeri. At rest there were no ST or T wave changes noted suggest ischemia peak exercise upsloping ST changes were noted with no meet the criteria for ischemia. No clinical angina was noted the test was terminated due to dyspnea. The peak blood pressure was 138/78 mmHg which was a normal response to exercise. Myocardial perfusion protocol. 10.9 mCi of technetium 99m sestamibi was injected at rest. Patient exercised according to regular Jt protocol for a total duration of 6 minutes at peak exercise 32.5 mCi of technetium 99m sestamibi was injected stress images were obtained stress and rest images were reconstructed and compared in the short axis vertical long horizontal long axis. Gated images were also obtained Perfusion SPECT analysis: Review of the stress images demonstrate normal uptake of tracer noted in all areas of the myocardium the resting images similar demonstrate normal uptake of tracer noted in all areas of the myocardium. No areas of reversibility are no lazarus suggest ischemia no previous infarct is noted. Gated SPECT analysis: The gated ejection fraction is noted to be 74%. Conclusion: Normal pharmacologic myocardial perfusion stress test. Preserved ejection fraction. No angina present.
== END ==
PROVIDERS: PCP Family Medicine; Referring Provider Internal Medicine Cardiovascular Disease; Visit Provider Internal Medicine Cardiovascular Disease
DX: I25.10 Atherosclerotic heart disease of native coronary artery without angina pectoris (principal); Z95.5 Presence of coronary angioplasty implant and graft
CPT/HCPCS: 78452; 93017; A9500; A4216

== ENCOUNTER → 2020-05-19 13:55 | Outpatient (CLI) | payer MEDICARE, SELFPAY ==
[2020-04-22 13:34] VITALS: BMI 28.8
--- NOTE | 2020-05-19 13:56 | ECHOD_ITS ---
Reason For Study: CAD/ASHD Procedure This was a 2D Doppler, Color Flow transthoracic echocardiogram. Exam performed in department. Left Ventricle Normal LV size. Mild concentric left ventricular hypertrophy. Left ventricular systolic function is normal. The estimated ejection fraction is 65 %. Stage 2 diastolic dysfunction. No regional wall motion abnormalities noted. Right Ventricle Normal RV size. Normal systolic function. Atria Normal left atrium. Normal right atrium. Mitral Valve Normal mitral valve. Tricuspid Valve Normal tricuspid valve. Mild (1+) tricuspid valve insufficiency. Pulmonary artery systolic pressure is 28 mmHg. Aortic Valve Trisinus/trileaflet aortic valve. Mild (1+) aortic valve insufficiency. Pulmonic Valve Normal pulmonic valve. Great Vessels Mildly dilated aortic root. The pulmonary artery is normal size. Normal inferior vena cava. Pericardium/Pleural No pericardial effusion. MMode/2D Measurements & Calculations LVIDd: 4.9 cm IVSd: 1.3 cm Ao root diam: 4.0 cm LVIDs: 3.0 cm LVPWd: 1.2 cm LA dimension: 4.1 cm RVDd: 3.8 cm FS: 38.5 % LAV(MOD-bp): 35.3 ml LA A4 area: 15.8 cm2 RA A4 area: 17.8 cm2 LAV(MOD-bp) Indexed: 19.4 ml/m2 LAV(MOD-sp2): 31.0 ml LAV(MOD-sp4): 38.5 ml Time Measurements MV dec time: 0.20 sec Doppler Measurements & Calculations MV E max robert: 78.1 cm/sec Lat Peak E' Robert: 8.8 cm/sec Med Peak E' Robert: 8.0 cm/sec MV A max robert: 52.1 cm/sec E/E' lat: 8.8 E/E' med: 9.8 MV E/A: 1.5 MV V2 max: 85.0 cm/sec MV P1/2t max robert: 85.4 cm/sec Ao V2 max: 145.1 cm/sec MV max P.9 mmHg MV P1/2t: 61.0 msec Ao max P.4 mmHg MV V2 mean: 39.1 cm/sec MV dec slope: 410.0 cm/sec2 MV mean P.75 mmHg MVA(P1/2t): 3.6 cm2 MV V2 VTI: 23.8 cm AI max robert: 411.5 cm/sec LV V1 max: 135.9 cm/sec PA V2 max: 86.7 cm/sec AI max P.7 mmHg LV V1 max P.4 mmHg AI dec slope: 187.5 cm/sec2 AI P1/2t: 642.9 msec TR max robert: 244.1 cm/sec TR max P.8 mmHg Interpretation Summary Normal LV size. Left ventricular systolic function is normal. The estimated ejection fraction is 65 %. Mild (1+) tricuspid valve insufficiency. Pulmonary artery systolic pressure is 28 mmHg. Stage 2 diastolic dysfunction. Mildly dilated aortic root. Mild concentric left ventricular hypertrophy. Ordering Physician: Jaime Fletcher Referring Physician: Pb Osorio Performed By: Gilberto Montiel RCS
== END ==
PROVIDERS: PCP Family Medicine; Referring Provider Internal Medicine Cardiovascular Disease; Visit Provider Internal Medicine Cardiovascular Disease
DX: I25.10 Atherosclerotic heart disease of native coronary artery without angina pectoris (principal); I10 Essential (primary) hypertension; E78.5 Hyperlipidemia, unspecified; R05 Cough; R06.00 Dyspnea, unspecified; R94.31 Abnormal electrocardiogram [ECG] [EKG]; Z95.5 Presence of coronary angioplasty implant and graft
CPT/HCPCS: 93306

== ENCOUNTER → 2020-09-08 09:35 | Outpatient (CLI) | payer MEDICARE, SELFPAY ==
[2020-04-22 13:34] VITALS: BMI 28.8
[2020-09-08 10:46] LABS: ALB/GLOB Ratio 1.4 RATIO (0.9-2.4); AST(SGOT) 15 U/L (15-37); Alanine Aminotransfer ALT/SGPT 24 U/L (16-61); Albumin, Serum 3.8 g/dL (3.2-5.0); Alkaline Phosphatase 65 U/L (45-117); Anion Gap 0 (5-15); BUN 9 mg/dL (7-18); BUN/Creat Ratio 8.9 RATIO (10-20); Calcium,Total 8.7 mg/dL (8.5-10.1); Chloride 110 mmol/L (98-107); Cholesterol 116 mg/dL (200); Creatinine, Serum 1.01 mg/dL (0.70-1.30); EST Glomerular Filtration Rate 76 mL/min (>60); Est Glom Filt Rate - Afr Amer 92 mL/min (>60); Globulin 2.7 g/dL (2.2-4.2); Glucose 105 mg/dL (74-106); High Density Lipoprotein 43 mg/dL; Potassium 4.5 mmol/L (3.5-5.1); Protein, Total 6.5 g/dL (6.4-8.2); Sodium Level 144 mmol/L (136-145); Triglycerides 94 mg/dL; Very Low Density Lipoprotein 19 mg/dL (5-40)
== END ==
PROVIDERS: PCP Family Medicine; Referring Provider Family Medicine; Visit Provider Family Medicine
DX: E78.5 Hyperlipidemia, unspecified (principal)
CPT/HCPCS: 36415; 80053; 80061

== ENCOUNTER 2020-09-10 13:00 | Outpatient (RCR) | payer MEDICARE, SELFPAY ==
[2020-04-22 13:34] VITALS: BMI 28.8
--- NOTE | 2020-08-06 15:00 | SOAP_ITS ---
REASON FOR REFERRAL: The patient is a 74 year old male referred for a clinical assessment of the swallow function at 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 The patient?s was present for the evaluation and provided details regarding the patient?s past medical history and current level of functioning. The patient is known to me from his prior MBS, which was completed due to his oral phase deficits associated with his persistent issues with hemifacial spasms which were more intense at that time. Both the patient and his report no real change in his facial spasms or intake tolerance, with intermittent coughing predominantly occurring following ingestion of solid textures. Since his most recent MBS, he has been diagnosed with Parkinson?s disease and Lewy Body dementia. his coughing incidences have increased in regard to frequency and severity, with the patient experiencing quite marked coughing episodes that are concerning enough to his to where she inquired about the Heimlich maneuver, and is concerned with her ability to rescue him due to her short stature and shoulder issues. The patient has been resistant to diet texture alterations in the past, and has been resisting further workup targeting his intake abilities, though does appreciate that there is an issue present. He reports occasional diurnal sialorrhea (drooling during the daytime) that reaches his chin / santana (SSS: 4) that has increased over the past couple months. He reports some pain along the mandibular ridge that has occurred sporadically following his dental extractions in his 20?s, as he reports having his mandibular ridge ?shaved down?, which becomes irritated at times by his dentures; he denies odynophagia (pain during swallow). He reports intermittent globus sensation below the laryngeal notch and above the clavicle following ingestion of solid textures towards the latter portions of meals, which is typically ameliorated with a liquid wash. Both report a tendency to rapidly consume meals (tachyphagia), and while his intake rate has slowed following his diagnosis of Parkinson?s disease, he reports that the speed of intake frustrates him and he occasionally will try to speed up to keep pace with his , which often leads to more coughing incidences. Both deny any unintentional weight loss, and deny any issues with appetite, early satiety (feeling full after few bites), inanition, nausea, or emesis. Both deny any current or previous issues with aspiration related pulmonary complications, to include pneumonia, bronchitis, or unexplained asthma symptoms. He is fully ambulatory, with no difficulties with posture maintenance. He appears sufficiently nourished. He requires assistance for some activities of daily living, with assistance provided via his ; no longer drives. He is retired; previously employed as a tig welder. 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, hemifacial spasms, gastroesophageal reflux disease, coronary artery diseases status post myocardial infarction with stent placement (x1), status post left heart catheterization, atherosclerosis of coronary artery of [place] heart without angina pectoris, hypertension, hyperlipidemia, chronic back pain, depression, urethral stricture, benign prostate hyperplasia, left nephrolithiasis, status post cystoscopy with ureteral stent placement, bilateral kidney stones, overweight PREVIOUS MODIFIED BARIUM SWALLOW STUDY: 03/20/2018 MBS revealed mild to moderate oral dysphagia with grade II transient aspiration during mastication of solid textures. 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 SUPPLEMENTARY DYSPHAGIA ASSESSMENT RESULTS (SCALES / PROM): EATING ASSESSMENT TOOL ? 10 (EAT-10): EAT-10 TOTAL SCORE: 22 EAT-10 INTERPRETATION: a score of 3+ may represent swallowing problems; an individual with a score >15 is 2.4x more likely to aspirate REFLUX SYMPTOM INDEX (RSI) RSI TOTAL SCORE: 25 RSI INDICATIONS: a score of >13 may indicate significant reflux ORAL MOTOR / MODIFIED CRANIAL NERVE ASSESSMENT: TRIGEMINAL NERVE (CNV): appears grossly intact FACIAL NERVE (CNVII): impaired; left hemifacial spasms GLOSSOPHARYNGEAL NERVE (CNIX): appears grossly intact VAGUS NERVE (CNX): appears grossly intact HYPOGLOSSAL NERVE (CNXII): appears grossly intact COUGH SUFFICIENCY: weakened volitional cough intensity suggesting dystussia SALIVATION: intermittent diurnal sialorrhea (drooling during daytime) SIALORRHEA SCORING SCALE (SSS): SSS SCORE: 4 (of 9) SSS DESCRIPTION: moderate, wet on the lips and chin, occasionally ORAL HEALTH ASSESSMENT TOOL (OHAT): LIPS: CATEGORY: 0 (healthy) DESCRIPTION: smooth, pink, moist TONGUE: CATEGORY: 0 (healthy) DESCRIPTION: normal, moist, roughness, pink GUMS AND TISSUES: CATEGORY: 0 (healthy) DESCRIPTION: pink, moist, smooth, no bleeding SALIVA: CATEGORY: 1 (changes) DESCRIPTION: person thinks they have a dry mouth (xerostomia) DENTURES: PRESENT: yes CATEGORY: 1 (changes) DESCRIPTION: loose / ill fitting ORAL CLEANLINESS: CATEGORY: 0 (healthy) DESCRIPTION: clean with no food particles / tartar / buildup in mouth or dentures DENTAL PAIN: CATEGORY: 1 (changes) DESCRIPTION: verbal signs of pain (right mandibular ridge) OHAT TOTAL SCORE: 316 CLINICAL ASSESSMENT OF SWALLOW FUNCTION (QUANTITATIVE): REPETITIVE SALIVA SWALLOWING TEST (RSST): RSST RESULT: pass RSST DESCRIPTION: able to elicit 2 dry swallows within 30 seconds. 1OZ WATER SWALLOWING TEST (1OZ WST): 1OZ WST RESULTS: normal ? 1 (of 5) 1OZ WST DESCRIPTION: single swallow without coughing during ingestion DRINKING EPISODES: none 3OZ WATER SWALLOWING TEST (3OZ WST): 3OZ WST RESULTS: normal DRINKING EPISODES: none CLINICAL ASSESSMENT OF DYSPHAGIA IN NEURODEGENERATION (CADN): ANAMNESIS: SCORE: 4 SEVERITY: severe INTAKE: SCORE: 2 SEVERITY: moderate CADN TOTAL SCORE: 4 CADN SCORE DESCRIPTION: severe signs of dysphagia with high aspiration risk CLINICAL ASSESSMENT OF SWALLOW FUNCTION (QUALITATIVE): ORAL PREPARATORY PHASE: slowed mastication rate with efficiency appearing to be sufficient; acceptable oral containment, though reported intermittent anterior bolus loss; preserved management of breathing / bolus formation without disrupted E ? S ? E pattern ORAL TRANSITIONAL PHASE: no signs of transitional incompetence; suspected fragmented swallowing (piecemeal deglutition) with solids; sufficient oral clearance during the examination, though reported tendency for left sided residue collection; no obviating signs or symptoms of premature posterior bolus loss; PHARYNGEAL PHASE: reduction in hyolaryngeal excursion and duration upon digital palpation possibly suggestive of suboptimal laryngeal vestibule closure / pressure / duration, though in isolation this may lack clinically significance; intermittent audible swallow possibly suggestive of pharyngeal swallow delay / dyssynchrony; no subjective signs of pharyngeal dysmotility; no subjective signs of velopharyngeal impairments ESOPHAGEAL PHASE: post prandial substernal discomfort following trials of solid textures that may suggest esophageal phase / gastroesophageal phase abnormalities. COMPLICATING FACTORS AND NOTABLE FINDINGS: complicating factors include the patients reported tendency to consume solids at fast rates (tachyphagia), and the patients gradual decline in attention and memory associated with the diagnosis of Lewy Body Dementia; mastication complicated by reported right mandibular pain that has persisted since his denture placement in his late 20?s (reports his mandibular ridge was shaved down) CLINICAL ASSESSMENT OF SWALLOW FUNCTION (SEVERITY GRADING): SWALLOWING PERFORMANCE SCALE (SPS): SPS SCORE: 4 (of 7) SPS SEVERITY: mild to moderate SPS SCORE DESCRIPTION: mild-moderate impairment with need for therapeutic precautions: mild dysfunction in oral and pharyngeal stage; requires modified diet and therapeutic precautions to minimize aspiration risk INTERVENTION CONSIDERATIONS AND RECOMMENDATIONS: I cannot definitively rule out silent aspiration at bedside. The patient is at higher risk of silent aspiration secondary to the diagnosis of Parkinson?s disease; will recommend further assessment of the oropharyngeal swallow function under fluoroscopy given the etiology of cause and likelihood for a gradual degradation of the pharyngeal phase efficiency. RECOMMENDATIONS FOR INTERVENTION: The patient requires continued skilled speech-language intervention targeting diet texture management and training / implementation of recommended compensatory strategies; training and implementation of recommended oropharyngeal strengthening exercises to facilitate improved oropharyngeal strength and coordination; patient and caregiver education regarding dysphagia associated with the diagnosis of Parkinson?s disease; with recommendations for further diagnostic assessment of the swallow function under fluoroscopy via Modified Barium Swallow (MBS) study; with goal adjustment pending MBS completion. POST ASSESSMENT EDUCATION: The results and recommendations were discussed with the patient and the patient?s family immediately following completion of the assessment, with the patient and the patient?s family verbalizing understanding and agreement with all recommendations and education provided. DIET TEXTURE RECOMMENDATIONS: Will recommend a mechanical soft textured (IDDSI: 5), thin liquid diet (IDDSI: 0) diet RECOMMENDED COMPENSATORY STRATEGIES: Distant supervision, reduced bolus volume / rate of ingestion, liquid chaser at reasonable intervals, consider cutting tougher textures into bite sized pieces, seated upright at 90 degrees during PO intake, remain upright for 30- 60 minutes post meal (GERD precaution) FUNCTIONAL OUTCOMES: OUTCOME 1: the patient will tolerate the least restrictive means of nutrition to facilitate adequate hydration / nutrition with optimum safety and efficiency of swallowing function during P.O. intake without overt signs and symptoms of aspiration. OUTCOME 2: the patient will demonstrate and utilize recommended oropharyngeal strengthening exercises to facilitate improved pharyngeal contraction and laryngeal vestibule valving, with minimal cueing and prompting provide by the clinician, across 2 out of 3 sessions. OUTCOME 3: the patient and patients caregiver will participate in continual caregiver education regarding dysphagia secondary to Parkinson?s disease and Lewy Body dementia to facilitate improved awareness and insight into the patients current dysphagia related complications and potential impact on the patients overall medical stability. OUTCOME 4: the patient will participate in a Modified Barium Swallow (MBS) study to objectively assess the oropharyngeal swallowing function, to determine the least restrictive means of nutrition, to objectively assess the effectiveness of previously identified strategies / precautions, and to identify appropriate intervention approaches / strategies to implement during treatment sessions at the supervised level. OUTCOME 5: goal adjustment as needed post MBS Kalia Lr M.A., CCC-REGIONAL SALES CONSULTANT, CBIS MBSImP Certified, LSVT Certified [facility] Speech-Language Pathology Department Email: [email or web address]
--- NOTE | 2020-09-15 13:00 | SP.MBSS_ITS ---
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, hemifacial spasms, gastroesophageal reflux disease, coronary artery diseases status post myocardial infarction with stent placement (x1), status post left heart catheterization, atherosclerosis of coronary artery of [place] heart without angina pectoris, hypertension, hyperlipidemia, chronic back pain, depression, urethral stricture, benign prostate hyperplasia, left nephrolithiasis, status post cystoscopy with ureteral stent placement, bilateral kidney stones, overweight PREVIOUS MODIFIED BARIUM SWALLOW STUDY: 03/20/2018 MBS revealed mild to moderate oral dysphagia with grade II transient aspiration during mastication of solid textures. ADDITIONAL OBJECTIVE ASSESSMENT RESULTS: 07/24/2019 MRI revealed no acute intracranial abnormality or masses; mild chronic white matter ischemic changes ASSESSMENT PARAMETERS: The patient participated in a Modified Barium Swallow (MBS) study on 09/15/2020. This study was recorded in the lateral and frontal views and images were sent to PACs for storage. Scoring was completed through each trial using the 8-point Penetration-Aspiration Scale (PAS) and summarized via the Modified Barium Swallow Impairment Profile (MBSImP) and the Bolus Residue Scale (BRS), with severity scoring through the Dysphagia Severity Rating Scale (DSRS), the Dysphagia Classification Scale (DCS), and recommended diet textures through the International Dysphagia Diet Standardisation Initiative (IDDSI) RESULTS OF THE EVALUATION: The patient presents with mild to moderate oropharyngeal dysphagia (DSRS: 3; BRS: 4) with intermittent penetration and inconsistent ejection during thin liquid trials secondary to the diagnosis of 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 OBJECTIVE ASSESSMENT OF SWALLOW FUNCTION (QUANTITATIVE ? PER TRIAL): PENETRATION / ASPIRATION SCALE (BANSAL): 1 = does not enter airway 2 = enters airway/above vocal folds/ejected 3 = enters airway/above vocal folds/not ejected 4 = enters airway/contacts vocal folds/ejected 5 = enters airway/contacts vocal folds/not ejected 6 = enters airway/below vocal folds/ejected 7 = enters airway/below vocal folds/not ejected despite effort 8 = enters airway/below vocal folds/no effort PENETRATION / ASPIRATION SCALE (SCORE): Thin liquid - 5 mL tsp.: 2 Thin liquids via cup (single sip): 1 Thin liquids via cup (single sip): 5 Thin liquids via cup (single sip): 3 Thin liquids via straw (single sip):1 Pudding via spoon: 1 Regular textured cookie: 1 Thin liquids via straw (single sip):5 Thin liquids via straw (single sip):4 Thin liquids via straw (chin tuck): 1 Thin liquids via straw (chin tuck): 1 Thin liquids via straw (chin tuck): 1 OBJECTIVE ASSESSMENT OF SWALLOW FUNCTION (QUANTITATIVE ? AGGREGATE): MODIFIED BARIUM SWALLOW IMPAIRMENT PROFILE (MBSImP) LABIAL SEAL: 0 (of 4) no labial escape TONGUE CONTROL: 0 (of 3) cohesive bolus BOLUS PREPARATION / MASTICATION: 1 (of 3) slow prolonged; complete recollection BOLUS TRANSPORT / LINGUAL MOTION: 3 (of 4) repetitive / disorganized motion ORAL RESIDUE: 2 (of 4) residue collection on oral structures INITIATION OF PHARYNGEAL SWALLOW: 3 (of 4) pyriforms SOFT PALATE ELEVATION: 1 (of 4) trace column between soft palate & pharyngeal wall LARYNGEAL ELEVATION: 1 (of 3) partial superior movement / approximation ANTERIOR HYOID EXCURSION: 2 (of 2) no movement EPIGLOTTIC MOVEMENT: 1 (of 2) partial inversion LARYNGEAL VESTIBULE CLOSURE: 1 (of 2) incomplete closure PHARYNGEAL STRIPPING WAVE: 1 (of 2) present / diminished PHARYNGEAL CONTRACTION (A/P): 0 (of 3) complete PE SEGMENT OPENIN (of 3) partial distension / duration / obstruction TONGUE BASE RETRACTION: 2 (of 4) narrow column of contrast PHARYNGEAL RESIDUE: 2 (of 4) collection of residue ESOPHAGEAL BOLUS CLEARANCE: 0 (of 4) complete clearance; esophageal coating BOLUS RESIDUE SCALE (BRS): BRS SCORE: 4 (of 6) BRS SCORE DESCRIPTION: residue in valleculae and piriform sinus OBJECTIVE ASSESSMENT OF SWALLOW FUNCTION (SEVERITY GRADING): DYSPHAGIA SEVERITY RATING SCALE (DSRS): DSRS CLASSIFICATION: 3 (of 6) DSRS SEVERITY: mild-moderate DSRS CLASSIFICATION CHARACTERISTICS: mild-moderate dysphagia?potential for aspiration exists but is diminished by specific swallow techniques and a modified diet; time for eating is significantly increased; thus supplemental nutrition may be indicated. DYSPHAGIA CLASSIFICATION SCALE (DCS): DCS CLASSIFICATION: D2 DCS SEVERITY: moderate DCS CLASSIFICATION CHARACTERISTICS: mild to moderate stasis, there can be restrictions of up to two consistencies OBJECTIVE ASSESSMENT OF SWALLOW FUNCTION (QUALITATIVE): ORAL PREPARATORY PHASE: slowed albeit effective mastication; sufficient anterior oral containment during oral manipulation; preserved management of breathing / bolus formation without disrupted E ? S ? E pattern ORAL TRANSITIONAL PHASE: oral phase swallow onset delay (1-3 seconds in length) with mildly discoordinated lingual movements (lingual undulations); sufficient oral clearance, though noted collections of residue along the posterior lingual base; sufficient oral containment across textures, with no presence of premature posterior bolus loss. PHARYNGEAL PHASE: noted pharyngeal phase dyssynchrony contributing to prandial penetration events; reduced hyolaryngeal excursion and duration with inconsistent laryngeal vestibule pressure generated to expel penetrated material; pharyngeal dysmotility with consolidation primarily within the vallecula (to a lesser extent the pyriforms), with symmetrical contractions noted during anterior posterior view, contributing to intermittent post prandial penetration of less viscous residue; appropriate velopharyngeal functioning CONTRIBUTING / COMPLICATING FACTORS AND NOTABLE FINDINGS: sufficient cued volitional cough intensity to expel penetrated material RESPONSE TO STRATEGIES: all deficits managed successfully with bolus rate / volume adjustments paired with execution of the chin tuck posture via straw RECOMMENDATIONS FOR INTERVENTION: The patient requires continued skilled speech-language intervention targeting diet texture management and training / implementation of recommended compensatory strategies; training and implementation of recommended oropharyngeal strengthening exercises to facilitate improved oropharyngeal strength and coordination; patient and caregiver education regarding dysphagia associated with the diagnosis of Parkinson?s disease. POST ASSESSMENT EDUCATION: The results and recommendations were discussed with the patient and the patient?s family immediately following completion of the assessment, with the patient and the patient?s family verbalizing understanding and agreement with all recommendations and education provided. DIET TEXTURE RECOMMENDATIONS: Will recommend a mechanical soft textured (IDDSI: 5), thin liquid diet (IDDSI: 0) diet RECOMMENDED COMPENSATORY STRATEGIES: Distant supervision, execution of the chin tuck posture via straw, reduced bolus volume / rate of ingestion, liquid chaser at reasonable intervals, consider cutting tougher textures into bite sized pieces, seated upright at 90 degrees during PO intake, remain upright for 30-60 minutes post meal (GERD precaution), medications one at a time with purees. IMAGE COUNT: [id number] Kalia Lr M.A., CCC-TOUR CONDUCTOR, CBIS MBSImP Certified, LSVT Certified [facility] Speech-Language Pathology Department Email: [email or web address]
--- NOTE | 2020-12-28 14:00 | HP.SP.DC ---
ST Discharge Summary - Discharged: Discharge: Louis Mtz is discharged from [facility] Speech therapy as of 12/28/20 as no further visits have been scheduled. He was evaluated on 08/06/20 with one session completed on 09/10/20 and one session cancelled on 10/04/20. Please see initial evaluation and daily progress note for last known abilities. A copy of this discharge summary will be sent to his referring physician.
== END 2020-09-10 19:00 | disposition home or self-care (01) ==
LOC: SP 13:00
PROVIDERS: PCP Family Medicine; Referring Provider Family Medicine; Visit Provider Family Medicine
DX: R13.10 Dysphagia, unspecified (principal)
CPT/HCPCS: 92526; 92610

== ENCOUNTER → 2020-09-15 12:51 | Outpatient (CLI) | payer MEDICARE, SELFPAY ==
[2020-04-22 13:34] VITALS: BMI 28.8
--- NOTE | 2020-09-15 18:02 | SP.MBSS_ITS ---
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, hemifacial spasms, gastroesophageal reflux disease, coronary artery diseases status post myocardial infarction with stent placement (x1), status post left heart catheterization, atherosclerosis of coronary artery of [place] heart without angina pectoris, hypertension, hyperlipidemia, chronic back pain, depression, urethral stricture, benign prostate hyperplasia, left nephrolithiasis, status post cystoscopy with ureteral stent placement, bilateral kidney stones, overweight - Penetration-Aspiration Scale Score Thin liquid - 5 mL tsp.: Result: 2= enter airway/above vocal folds/ejected Thin liquids via cup (single sip -1): Result: 1= does not enter airway Thin liquids via cup (single sip -2): Result: 5= enters airways/contacts vocal folds/not ejected Thin liquids via cup (single sip -3): Result: 3= enters airways/above vocal folds/not ejected Thin liquids via straw (single sip -1): Result: 1= does not enter airway Pudding via spoon: Result: 1= does not enter airway Regular texture: Result: 1= does not enter airway Thin liquids via straw (single sip -2): Result: 5= enters airways/contacts vocal folds/not ejected Thin liquids via straw (single sip -3): Result: 4= enters airway/contacts vocal folds/ejected Thin liquids via straw (chin tuck -1): Result: 1= does not enter airway Thin liquids via straw (chin tuck -2): Result: 1= does not enter airway Thin liquids via straw (chin tuck -3): Result: 1= does not enter airway - Oral Phase Labial Seal: No Labial Escape Tongue Control During Bolus Hold: Cohesive bolus between tongue to palatal seal Bolus Preparation/Mastication: Slow prolonged chewing/mashing with complete recollection Bolus Transport/Lingual Motion: Repetitive/disorganized tongue motion Oral Residue: Residue collection on oral structures - Pharyngeal Phase Initiation of Pharyngeal Swallow: Bolus head in pyriforms Soft Palate Elevation: Trace column of contrast/air between soft palate and pharyngeal wall Laryngeal Elevation: Partial superior movement thyroid cart/partial apprx aryt- epig petiole Anterior Hyoid Excursion: No anterior movement Epiglottic Movement: Partial inversion Laryngeal Vestibule Closure at Height of Swallow: Incomplete; narrow column of air/contrast in laryngeal vestibule Pharyngeal Stripping Wave: Present - diminished Pharyngoesophageal Segment Opening: Parital distension and partial duration; parital obstruction of flow Tongue Base Retraction: Narrow column of contrast between tongue base & post. 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 His swallow function was marked by rather consistent oral phase swallow onset d elay (1-3 seconds in length) with mildly discoordinated lingual movements (lingual undulations); noted pharyngeal phase dyssynchrony contributing to prandial penetration events; reduced hyolaryngeal excursion and duration with inconsistent laryngeal vestibule pressure generated to expel penetrated material; pharyngeal dysmotility with consolidation primarily within the vallecula (to a lesser extent the pyriforms), with symmetrical contractions noted during anterior posterior view, contributing to intermittent post prandial penetration of less viscous residue; with slowed albeit effective mastication. Noted sufficient cued volitional cough intensity to expel penetrated material. All deficits were managed successfully with bolus rate / volume adjustments paired with execution of the chin tuck posture via straw. - Recommendations Comment: DIET TEXTURE RECOMMENDATIONS: mechanical soft textured (IDDSI: 5), thin liquid diet (IDDSI: 0) diet RECOMMENDED COMPENSATORY STRATEGIES: execution of the chin tuck posture via straw, reduced bolus volume / rate of ingestion, liquid chaser at reasonable intervals, seated upright at 90 degrees during PO intake, remain upright for 30- 60 minutes post meal (GERD precaution), medications one at a time with purees. Need for Skilled Speech Therapy Services: Yes Education Completed: 1. Described result of evaluation., 2. Pt understands evaluation & agrees with goals and treatment plan., 8. Family/caregivers require further education on strategies & risks. - Image Count: 1,[phone] - Status Active ST Patient: Active
== END ==
PROVIDERS: PCP Family Medicine; Referring Provider Family Medicine; Visit Provider Family Medicine
DX: R13.12 Dysphagia, oropharyngeal phase (principal)
CPT/HCPCS: 74230; 92611

== ENCOUNTER 2020-10-04 12:47 | Emergency (ER) | payer MEDICARE, SELFPAY ==
[2020-04-22 13:34] VITALS: BMI 28.8
[2020-10-04] VITALS (8 sets, daily range): BP systolic 114–117; BP diastolic 56–68; PULSE 81–87; RESP 20–23; TEMP 36.6–37.9; O2SAT 93–96; BMI 26.6
--- NOTE | 2020-10-04 13:24 | EKG12_ITS ---
Test Reason : Blood Pressure : / mmHG Vent. Rate : 083 BPM Atrial Rate : 083 BPM P-R Int : 146 ms QRS Dur : 082 ms QT Int : 346 ms P-R-T Axes : -26 -43 036 degrees QTc Int : 406 ms Normal sinus rhythm Left axis deviation Poor R wave progression Abnormal ECG Confirmed by ANANDA BELTRAN, ERWIN ([id number]), production editor EDMAR MCNALLY ([id number]) on 10/06/2020 9:39:10 AM Referred By: CESAR Confirmed By:ERWIN MALAVE MD
--- NOTE | 2020-10-04 13:45 | RAD_ITS ---
STUDY: X-RAY CHEST REASON FOR EXAM: Male, 75 years old. SOB, WEAKNESS AND FATIGUE. -- HX [place] 2000 TECHNIQUE: Single AP portable view of the chest. COMPARISON: 12/23/2018 FINDINGS: The lungs are clear and expanded. There is no demonstrated pleural abnormality. Normal size heart. Normal mediastinum and latesha. Normal visualized pulmonary arteries. Normal visualized aortic arch and descending thoracic aorta. Normal visualized thoracic spine. Normal visualized ribs, clavicles, and shoulders. There is no demonstrated abnormality of the visualized soft tissue structures of the upper abdomen. RAD/Chest 1 View (Portable) IMPRESSION: Normal x-ray examination of the chest. Electronically Signed: Mikel Sprague MD at 14:18 EST Tel , Service support ,
[2020-10-04 13:54] LABS: Absolute Neutrophil Count 7.9 X10^3/uL (2.0-7.7); Basophil# 0.05 X10^3/uL; Basophil% 0.5 % (0-1); Eosinophil# 0.33 X10^3/uL; Eosinophils% 3.4 % (0-5); Hematocrit 45.2 % (40-54); Hemoglobin 16.2 g/dL (13.0-16.5); Lymphocyte % 4.2 % (19-41); Mean Corp Hgb Conc 35.8 g/dL (32-36); Mean Corpuscular Hgb 33.5 pg (27.0-32.0); Mean Corpuscular Volume 93.6 fL (80-94); Mean Platelet Vol. 9.5 fl (6.2-12.0); Monocyte# 0.71 X10^3/uL; Monocyte% 7.4 % (0-10); NRBC Flagged by Analyzer 0 % (0-5); POSITIVE DIFFERENTIAL YES; Platelet Count 161 K/mm3 (150-450); RBC Distribution Width CV 12.9 % (11.6-14.6); RBC Distribution Width SD 43.3 fl (35.1-43.9); Red Blood Count 4.83 M/mm3 (4.6-6.2); White Blood Count 9.6 K/mm3 (4.4-11.0)
[2020-10-04 13:56] LABS: Differential Indicated SCAN CRITERIA MET
[2020-10-04 14:12] LABS: ALB/GLOB Ratio 1.1 RATIO (0.9-2.4); AST(SGOT) 19 U/L (15-37); Alanine Aminotransfer ALT/SGPT 48 U/L (16-61); Albumin, Serum 3.1 g/dL (3.2-5.0); Alkaline Phosphatase 66 U/L (45-117); Anion Gap 4 (5-15); BUN 13 mg/dL (7-18); BUN/Creat Ratio 12.4 RATIO (10-20); Calcium,Total 8.6 mg/dL (8.5-10.1); Chloride 105 mmol/L (98-107); Creatinine, Serum 1.05 mg/dL (0.70-1.30); EST Glomerular Filtration Rate 73 mL/min (>60); Est Glom Filt Rate - Afr Amer 88 mL/min (>60); Estimated Creatinine Clearance 51.25 ml/min; Globulin 2.9 g/dL (2.2-4.2); Glucose 157 mg/dL (74-106); Sodium Level 138 mmol/L (136-145)
[2020-10-04 14:19] LABS: Lactic Acid 1.6 mmol/L (0.4-1.9)
--- NOTE | 2020-10-04 14:48 | ED.VISSUMM ---
- ER Visit Summary Date of Service: 10/04/20 Chief Complaint: Cough and nausea History of Present Illness: The patient is a 75 M who presents with cough and nausea that began yesterday. Patient states it is gradually gotten worse. Patient states he feels weak all over. Patient denies any fever but admits to subjective chills. Patient states he occasionally coughs up some green sputum or white sputum. Patient admits to nausea but denies any vomiting. Patient denies any chest pain or shortness of breath. Patient states his tested positive for COVID-19 on 09/23/2020. Patient admits to a loss of taste. Physical Examination: Vital signs are stable. Patient is afebrile. Patient is in no acute distress. Oral mucosa is pink and moist. Neck is supple. Trachea is midline. There is no JVD. Heart was regular rate and rhythm. Lungs were clear but diminished bilaterally. There is adequate respiratory effort. Abdomen is soft. Bowel sounds are normal. There is no tenderness. Cranial nerves II through XII are intact. There are no focal motor or sensory deficits noted. Extremities are intact. There is no calf tenderness or edema. Test Results: COVID-19 rapid antigen test was obtained and was positive. EKG was obtained. On my interpretation, there is a normal sinus rhythm with a rate of 83. There is left axis deviation. There are no acute ST or T wave changes. Portable 1 view chest x-ray was obtained. On my interpretation, lung casper are clear. There is normal cardiac silhouette. Bony thorax is normal. There is no acute process noted. This was also interpreted by the radiologist and he agrees. CBC and comprehensive metabolic profile were obtained and were essentially within normal limits. Lactate was normal. Emergency Department Course and Treatment: Patient was given 4 puffs of an albuterol inhaler here. Patient was given a dose of Tylenol because his temperature increased to 100.3. Patient was ambulated around the room with a pulse oximeter. Patient maintained his oxygen saturation of 93% on room air. Patient will be referred for outpatient monoclonal antibody therapy. Patient understood and was agreeable with the plan. All questions were answered. Disposition: Discharge home Impression: 1. COVID-19 This note was generated with [employer] software. It may contain incorrect words, spelling, and punctuation that were not noted in review of the chart prior to signing ED Disposition - Plan for ED Patient: Disposition: Home or Assisted Living Diagnosis: COVID-19 Instructions: ED - COVID Monoclonal AB Infusion ..., Coronavirus Disease 2019 (COVID-19): Overview, Coronavirus Disease 2019 (COVID-19): Caring for Yourself or Others Referrals: Pb Osorio MD [Primary Care Provider] - 3-5 Days
[2020-10-04] MEDS: Acetaminophen 500 MG Tablet 1000 MG PO (14:51)
== END 2020-10-04 15:43 | disposition home or self-care (01) ==
PROVIDERS: Emergency Provider Emergency Medicine; PCP Family Medicine
DX: U07.1 COVID-19 (principal)
CPT/HCPCS: 71045; 80053; 83605; 85025; 87040; 87426; 93005; 94640; 99285; A4216

== ENCOUNTER → 2020-11-22 16:16 | Outpatient (CLI) | payer MEDICARE, SELFPAY ==
[2020-11-22 15:23] VITALS: BMI 28.4
[2020-11-22 18:08] LABS: BNP,B-Type NATRIURETIC PEPTIDE 164.9 pg/mL (0-100)
== END ==
PROVIDERS: PCP Family Medicine; Referring Provider Physician Assistant Medical; Visit Provider Physician Assistant Medical
DX: R06.00 Dyspnea, unspecified (principal)
CPT/HCPCS: 36415; 83880

== ENCOUNTER → 2020-12-17 12:35 | Outpatient (CLI) | payer MEDICARE, SELFPAY ==
[2020-11-22 15:23] VITALS: BMI 28.4
--- NOTE | 2020-12-17 14:14 | PFTCOMP_ITS ---
COMPLETE PULMONARY FUNCTION TEST INTERPRETATION Brief HPI: Patient is a 75 year old male, currently under the care of Dr. Fletcher, who presents to [facility] for complete pulmonary function tests secondary to diagnosis of dyspnea. Respiratory therapist reports good effort and reproducible results. Interpretation: Forced expiration spirometry shows no large airways obstructive ventilatory defect with an FEV1 of 64% predicted. There is no significant bronchodilator response by strict ATS criteria. Spirograms are of good quality and plateau normally. The respiratory flow volume loop shows a normal pattern. Lung volumes by body plethysmography show a decreased total lung capacity at 4.08 L, 78% predicted. All other lung volumes are reduced symmetrically. Diffusion capacity by carbon monoxide is at the lower limit of normal at 78% predicted. The airway resistance is elevated. No previous pulmonary function tests were available for review. Impression: Irreversible mild large airways obstructive ventilatory defect with a symmetric reduction diffusing capacity
== END ==
PROVIDERS: PCP Family Medicine; Referring Provider Physician Assistant Medical; Visit Provider Physician Assistant Medical
DX: R06.00 Dyspnea, unspecified (principal)
CPT/HCPCS: 94060; 94726; 94729

== ENCOUNTER → 2021-01-05 10:35 | Outpatient (CLI) | payer MEDICARE, SELFPAY ==
[2020-11-22 15:23] VITALS: BMI 28.4
[2021-01-05 12:31] LABS: Anion Gap 3 (5-15); BUN 11 mg/dL (7-18); BUN/Creat Ratio 11.1 RATIO (10-20); Chloride 104 mmol/L (98-107); Creatinine, Serum 0.99 mg/dL (0.70-1.30); EST Glomerular Filtration Rate 78 mL/min (>60); Est Glom Filt Rate - Afr Amer 94 mL/min (>60); Glucose 140 mg/dL (74-106); Sodium Level 141 mmol/L (136-145)
== END ==
PROVIDERS: PCP Family Medicine; Referring Provider Internal Medicine Cardiovascular Disease; Visit Provider Internal Medicine Cardiovascular Disease
DX: R06.00 Dyspnea, unspecified (principal); Z79.899 Other long term (current) drug therapy
CPT/HCPCS: 36415; 80048

== ENCOUNTER → 2021-01-31 11:48 | Outpatient (CLI) | payer MEDICARE, SELFPAY ==
[2020-11-22 15:23] VITALS: BMI 28.4
[2021-01-31 13:16] LABS: Anion Gap 4 (5-15); BUN 19 mg/dL (7-18); BUN/Creat Ratio 17.9 RATIO (10-20); Calcium,Total 8.7 mg/dL (8.5-10.1); Chloride 104 mmol/L (98-107); Creatinine, Serum 1.06 mg/dL (0.70-1.30); EST Glomerular Filtration Rate 72 mL/min (>60); Est Glom Filt Rate - Afr Amer 87 mL/min (>60); Glucose 130 mg/dL (74-106); Potassium 4.1 mmol/L (3.5-5.1); Sodium Level 141 mmol/L (136-145)
== END ==
PROVIDERS: PCP Family Medicine; Referring Provider Internal Medicine Cardiovascular Disease; Visit Provider Internal Medicine Cardiovascular Disease
DX: I50.30 Unspecified diastolic (congestive) heart failure (principal)
CPT/HCPCS: 36415; 80048

== ENCOUNTER → 2021-03-10 09:50 | Outpatient (CLI) | payer MEDICARE, SELFPAY ==
[2020-11-22 15:23] VITALS: BMI 28.4
[2021-03-10 10:46] LABS: Hemoglobin A1c 5.8 % (3.8-5.6)
[2021-03-10 10:52] LABS: Anion Gap 3 (5-15); BUN 12 mg/dL (7-18); BUN/Creat Ratio 11.2 RATIO (10-20); Calcium,Total 8.6 mg/dL (8.5-10.1); Chloride 106 mmol/L (98-107); Cholesterol 114 mg/dL (200); Creatinine, Serum 1.07 mg/dL (0.70-1.30); EST Glomerular Filtration Rate 71 mL/min (>60); Est Glom Filt Rate - Afr Amer 86 mL/min (>60); Glucose 118 mg/dL (74-106); High Density Lipoprotein 35 mg/dL; Potassium 3.9 mmol/L (3.5-5.1); Sodium Level 141 mmol/L (136-145); Triglycerides 119 mg/dL; Very Low Density Lipoprotein 24 mg/dL (5-40)
== END ==
PROVIDERS: PCP Family Medicine; Referring Provider Family Medicine; Visit Provider Family Medicine
DX: R73.9 Hyperglycemia, unspecified (principal); E78.5 Hyperlipidemia, unspecified
CPT/HCPCS: 36415; 80048; 80061; 83036

== ENCOUNTER 2021-10-06 11:35 | Outpatient (CLI) | payer MEDICARE, SELFPAY ==
[2021-10-06 15:42] LABS: Anion Gap 5 (5-15); BUN 13 mg/dL (7-18); BUN/Creat Ratio 13.1 RATIO (10-20); Calcium,Total 8.9 mg/dL (8.5-10.1); Chloride 106 mmol/L (98-107); Cholesterol 102 mg/dL (200); Creatinine, Serum 0.99 mg/dL (0.70-1.30); EST Glomerular Filtration Rate 78 mL/min (>60); Est Glom Filt Rate - Afr Amer 94 mL/min (>60); Glucose 103 mg/dL (74-106); High Density Lipoprotein 39 mg/dL; Potassium 4.4 mmol/L (3.5-5.1); Sodium Level 142 mmol/L (136-145); Triglycerides 72 mg/dL; Very Low Density Lipoprotein 14 mg/dL (5-40)
== END 2021-10-06 23:59 | disposition short-term general hospital (02) ==
LOC: MFPLAB 11:36
PROVIDERS: PCP Family Medicine; Referring Provider Family Medicine; Visit Provider Family Medicine
DX: E78.5 Hyperlipidemia, unspecified (principal)
CPT/HCPCS: 36415; 80048; 80061

== ENCOUNTER → 2022-05-16 | Outpatient (CLI) | payer MEDICARE, SELFPAY ==
[2022-05-16 15:08] LABS: Absolute Lymphocyte Count 2.21 X10^3/uL (0.83-4.51); Absolute Neutrophil Count 6.6 X10^3/uL (2.0-7.7); Basophil# 0.08 X10^3/uL; Basophil% 0.8 % (0-1); Hematocrit 47.4 % (40-54); Hemoglobin 16.6 g/dL (13.0-16.5); Lymphocyte # 2.21 X10^3/ul (0.83-4.51); Lymphocyte % 22.8 % (19-41); Mean Corpuscular Hgb 32.4 pg (27.0-32.0); Mean Corpuscular Volume 92.6 fL (80-94); Mean Platelet Vol. 9.8 fl (6.2-12.0); Monocyte# 0.78 X10^3/uL; Monocyte% 8.1 % (0-10); NRBC Flagged by Analyzer 0 % (0-5); Neutrophil # 6.58 X10^3/uL (2.7-7.7); Platelet Count 209 K/mm3 (150-450); RBC Distribution Width SD 44.2 fl (35.1-43.9); Red Blood Count 5.12 M/mm3 (4.6-6.2); White Blood Count 9.7 K/mm3 (4.4-11.0)
[2022-05-16 15:53] LABS: Anion Gap 2 (5-15); BUN 22 mg/dL (7-18); Calcium,Total 8.8 mg/dL (8.5-10.1); Chloride 106 mmol/L (98-107); Creatinine, Serum 1.05 mg/dL (0.70-1.30); EST Glomerular Filtration Rate 73 mL/min (>60); Est Glom Filt Rate - Afr Amer 88 mL/min (>60); Glucose 98 mg/dL (74-106); Magnesium 2.4 mg/dL (1.6-2.6); Potassium 4.4 mmol/L (3.5-5.1); Sodium Level 140 mmol/L (136-145); Thyroid Stim Hormone (TSH) 0.76 uIU/mL (0.358-3.74)
== END | disposition home or self-care (01) ==
LOC: LAB 14:37
PROVIDERS: PCP Family Medicine; Referring Provider Physician Assistant Medical; Visit Provider Physician Assistant Medical
DX: E78.5 Hyperlipidemia, unspecified (principal); I50.32 Chronic diastolic (congestive) heart failure; I11.0 Hypertensive heart disease with heart failure; I49.3 Ventricular premature depolarization; Z95.5 Presence of coronary angioplasty implant and graft
CPT/HCPCS: 36415; 80048; 83735; 84443; 85025

== ENCOUNTER → 2022-05-25 | Outpatient (CLI) | payer MEDICARE, SELFPAY | END | disposition home or self-care (01) | LOC: PSN 11:32 | PROVIDERS: PCP Family Medicine; Referring Provider Physician Assistant Medical; Visit Provider Physician Assistant Medical | DX: I11.0 Hypertensive heart disease with heart failure (principal); I50.32 Chronic diastolic (congestive) heart failure; I49.3 Ventricular premature depolarization; E78.00 Pure hypercholesterolemia, unspecified; Z95.5 Presence of coronary angioplasty implant and graft | CPT/HCPCS: 93225; 93226 ==

== ENCOUNTER → 2022-12-14 | Outpatient (CLI) | payer MEDICARE, SELFPAY ==
--- NOTE | 2022-12-14 15:51 | RAD_ITS ---
STUDY: X-RAY - ABDOMEN/PELVIS REASON FOR EXAM: Male, 77 years old. Abdominal pain. TECHNIQUE: AP supine and upright views of the abdomen and pelvis. COMPARISON: Abdomen and pelvic CT dated November 2018. FINDINGS: Normal visualized lung bases. Normal bowel gas pattern with air seen to the rectum. No disproportionate dilatation of bowel. Moderate amount of feces in the colon. There is no demonstrated free abdominal air. Multiple small calcifications projected over the left kidney compatible with nephrocalcinosis. Normal soft tissue structures. Osteopenia with postsurgical changes of fusion at L5-S1. RAD/Abd Inc Decub and/or Erect IMPRESSION: Multiple left renal stones. No acute abnormality. Electronically Signed: Bill Pierson, at 10:49 EDT ,
== END | disposition home or self-care (01) ==
LOC: MTRAD 15:49
PROVIDERS: PCP Family Medicine; Referring Provider Family Medicine; Visit Provider Family Medicine
DX: R10.9 Unspecified abdominal pain (principal)
CPT/HCPCS: 74019

== ENCOUNTER → 2023-06-07 | Outpatient (CLI) | payer MEDICARE, SELFPAY ==
[2023-06-07 18:25] LABS: ALB/GLOB Ratio 1.4 RATIO (0.9-2.4); AST(SGOT) 16 U/L (15-37); Alanine Aminotransfer ALT/SGPT 7 U/L (16-61); Albumin, Serum 3.6 g/dL (3.2-5.0); Alkaline Phosphatase 62 U/L (45-117); Anion Gap 4 (5-15); BUN 13 mg/dL (7-18); BUN/Creat Ratio 13.2 RATIO (10-20); Bilirubin, Direct 0.19 mg/dL (0.00-0.30); Calcium,Total 8.9 mg/dL (8.5-10.1); Chloride 110 mmol/L (98-107); Cholesterol 183 mg/dL (200); Creatinine, Serum 0.98 mg/dL (0.70-1.30); EST Glomerular Filtration Rate 78 mL/min (>60); Est Glom Filt Rate - Afr Amer 94 mL/min (>60); Globulin 2.6 g/dL (2.2-4.2); Glucose 94 mg/dL (74-106); High Density Lipoprotein 43 mg/dL; Potassium 3.8 mmol/L (3.5-5.1); Protein, Total 6.2 g/dL (6.4-8.2); Sodium Level 142 mmol/L (136-145); Triglycerides 77 mg/dL; Very Low Density Lipoprotein 15 mg/dL (5-40)
== END | disposition home or self-care (01) ==
LOC: MTLAB 14:25
PROVIDERS: Nurse Practitioner Family; PCP Family Medicine; Visit Provider Family Medicine
DX: E78.5 Hyperlipidemia, unspecified (principal)
CPT/HCPCS: 36415; 80053; 80061; 82248

== ENCOUNTER 2023-08-09 15:26 | Emergency (ER) | payer MEDICARE, SELFPAY ==
[2023-08-09 15:27] VITALS: BP 149/63; PULSE 48; RESP 16; TEMP 36.2; O2SAT 99
[2023-08-09 15:41] LABS: Absolute Lymphocyte Count 1.39 X10^3/uL (0.83-4.51); Basophil# 0.05 X10^3/uL; Basophil% 0.8 % (0-1); Eosinophils% 19.8 % (0-5); Hematocrit 42.7 % (40-54); Hemoglobin 14.8 g/dL (13.0-16.5); Lymphocyte # 1.39 X10^3/ul (0.83-4.51); Lymphocyte % 22.9 % (19-41); Mean Corp Hgb Conc 34.7 g/dL (32-36); Mean Corpuscular Hgb 31.2 pg (27.0-32.0); Mean Corpuscular Volume 90.1 fL (80-94); Mean Platelet Vol. 9.6 fl (6.2-12.0); Monocyte# 0.39 X10^3/uL; Monocyte% 6.4 % (0-10); NRBC Flagged by Analyzer 0 % (0-5); Neutrophil # 3.02 X10^3/uL (2.7-7.7); Neutrophil % 49.9 % (47-70); POSITIVE MORPHOLOGY YES; Platelet Count 207 K/mm3 (150-450); RBC Distribution Width CV 13.5 % (11.6-14.6); RBC Distribution Width SD 44.2 fl (35.1-43.9); Red Blood Count 4.74 M/mm3 (4.6-6.2); White Blood Count 6.1 K/mm3 (4.4-11.0)
[2023-08-09 15:42] LABS: Differential Indicated SCAN CRITERIA MET
[2023-08-09 15:58] LABS: ALB/GLOB Ratio 1.2 RATIO (0.9-2.4); AST(SGOT) 13 U/L (15-37); Alanine Aminotransfer ALT/SGPT 16 U/L (16-61); Albumin, Serum 3.5 g/dL (3.2-5.0); Alkaline Phosphatase 70 U/L (45-117); Anion Gap 1 (5-15); BUN 12 mg/dL (7-18); BUN/Creat Ratio 10.7 RATIO (10-20); Calcium,Total 9.3 mg/dL (8.5-10.1); Chloride 107 mmol/L (98-107); Creatinine, Serum 1.12 mg/dL (0.70-1.30); EST Glomerular Filtration Rate 67 mL/min (>60); Est Glom Filt Rate - Afr Amer 81 mL/min (>60); Globulin 2.8 g/dL (2.2-4.2); Glucose 125 mg/dL (74-106); Potassium 3.2 mmol/L (3.5-5.1); Protein, Total 6.3 g/dL (6.4-8.2); Sodium Level 143 mmol/L (136-145)
[2023-08-09 16:11] LABS: Anisocytosis 1+; Macrocytosis 1+; Platelet Estimate ADEQUATE (ADEQ); Red Cell Morphology N CHROM NORMAL (NORM C&C)
[2023-08-09 16:50] LABS: Mucous, Urine 0 SEEN /hpf (<or=2+); Red Blood Cells-Urine 0 SEEN /hpf (0-5)
[2023-08-09 16:55] LABS: Color, Urine Yellow (Yellow); Glucose, Dipstick Normal (Normal); Ketone-Dipstick Negative (Negative); Leukocyte Esterase-Dipstick 25 /ul (Negative); Nitrite-Dipstick Negative (Negative); Occult Blood-Urine 10 /ul (Negative); Protein-Dipstick 30 mg/dl (Negative); Urine Bilirubin Dipstick Negative (Negative); Urine Clarity Sl. Cloudy (Clear); Urine Urobilinogen Normal (Normal)
[2023-08-09 17:08] LABS: Amorphous Sediment 1+; Bacteria 1+ /hpf (None Seen); Squamous Epithelial Cells - UA 0-5 SEEN /hpf (0-5); White Blood Cells 0-5 SEEN /hpf (0-5)
--- NOTE | 2023-08-09 17:43 | EX.ED.DYSGE1 ---
HPI History of Present Illness Chief Complaint: Abd Pain Informant: patient Narrative Narrative: Patient is a 77 year old male with history of right inguinal hernia as well as Parkinson's presenting with worsening right inguinal pain. Is been worsening over the past 3 days. Today he had a coughing fit and was unable to reduce his bulge. He continued to have significant pain especially with ambulation. He came to the ER to be evaluated further. Notes that upon arrival to the ER he actually been feeling better. Currently denies any pain. States bowel movements been normal. His states that he gets a laxative twice a week. Patient denies any constipation or straining. Denies any nausea or vomiting. Denies any other abdominal pain. No fever or chills. No urinary symptoms. No other complaints or concerns at this time. Does see Dr. Tee. Had recently been offered surgery but declined as symptoms not too bad at that time. [facility] Medical History Atherosclerosis of coronary artery of [place] heart without angina pectoris Bilateral kidney stones BPH (benign prostatic hyperplasia) Chronic cough Chronic heart failure with preserved ejection fraction (HFpEF) Depression Essential (primary) hypertension GERD (gastroesophageal reflux disease) Hyperlipidemia Left nephrolithiasis Left ventricular diastolic dysfunction PVCs (premature ventricular contractions) Right inguinal pain STEMI (ST elevation myocardial infarction) (~09/02/22) Urethral stricture Home Medications clonazepam 1 mg tablet 1 mg PO DAILY 03/20/22 [History Last Taken Unknown] donepezil 10 mg tablet 10 mg PO DAILY 03/20/22 [History Last Taken Unknown] memantine 5 mg tablet 5 mg PO BID 03/20/22 [History Last Taken Unknown] quetiapine 25 mg tablet 25 mg PO DAILY 03/20/22 [History Last Taken Unknown] acetaminophen 325 mg capsule 650 mg PO BID PRN 10/26/22 [History Last Taken Unknown] aspirin 81 mg chewable tablet 81 mg PO DAILY 10/26/22 [History Last Taken Unknown] doxepin 10 mg capsule 10 mg PO DAILY 10/26/22 [History Last Taken Unknown] furosemide 20 mg tablet 20 mg PO DAILY 10/26/22 [History Last Taken Unknown] metoprolol tartrate 25 mg tablet 25 mg PO BID 10/26/22 [History Last Taken Unknown] nitroglycerin 0.4 mg sublingual tablet 0.4 mg sublingual Q5-15M PRN 10/26/22 [History Last Taken Unknown] omeprazole 40 mg capsule,delayed release 40 mg PO DAILY REFLUX 90 days #90 caps 10/26/22 [History Last Taken Unknown] carbidopa 25 mg-levodopa 100 mg tablet 1.5 tab PO TID 03/01/23 [History Last Taken Unknown] atorvastatin 80 mg tablet 80 mg PO QHS #90 tabs 05/23/23 [Rx Last Taken Unknown] cholecalciferol (vitamin D3) 50 mcg (2,000 unit) capsule 50 mcg PO DAILY 07/26/23 [History Last Taken Unknown] hydroxyzine HCl 50 mg tablet 50 mg PO QHS 07/26/23 [History Last Taken Unknown] lisinopril 20 mg tablet 20 mg PO DAILY 07/26/23 [History Last Taken Unknown] ticagrelor 90 mg tablet (Brilinta) 90 mg PO BID 07/26/23 [History Last Taken Unknown] vitamin K2 45 mcg capsule 45 mcg PO DAILY 07/26/23 [History Last Taken Unknown] Allergy/AdvReac Type Severity Reaction Status Date / Time clopidogrel [From Plavix] Allergy Mild Rash Verified 07/26/23 14:00 lisinopril Allergy Mild Rash Verified 07/26/23 14:00 calcium carbonate Allergy Swelling Verified 07/26/23 14:00 [From Leisa-[place]] citric acid Allergy Swelling Verified 07/26/23 14:00 [From [place]isa[place]] niacin Allergy unknown Verified 07/26/23 14:00 [From Niaspan Extended-Release] onabotulinumtoxinA Allergy hives Verified 07/26/23 14:00 [From Botox] potassium bicarbonate Allergy Swelling Verified 07/26/23 14:00 [From Leisa[place]] sodium bicarbonate Allergy Swelling Verified 07/26/23 14:00 [From [place]isa[place]] sulfamethoxazole Allergy Upset Verified 07/26/23 14:00 [From Bactrim] Stomach trimethoprim [From Bactrim] Allergy Upset Verified 07/26/23 14:00 Stomach Family History Brother CAD (coronary artery disease) Diabetes Mother Diabetes Surgical History History of cataract surgery History of coronary artery stent placement (09/02/22) History of left heart catheterization (01/09/13) History of left heart catheterization (LHC) (~09/02/22) S/P cystoscopy with ureteral stent placement (10/2017) Social History Smoking Status: Former smoker alcohol intake: former substance use type: does not use caffeine: No what type of physical activity do you participate in: walking frequency: 3-4 times per week duration: 15-30 minutes/day seatbelt use: always do you feel safe at home: Yes ROS ROS ED Constitutional Constitutional ED: Denies chills or fever(s) Respiratory/Chest Respiratory/Chest: Denies cough Gastrointestinal Gastrointestinal: Reports abdominal pain; Denies constipation, diarrhea, melena, nausea or vomiting Genitourinary Genitourinary ED: Denies dysuria or urinary frequency Musculoskeletal Musculoskeletal: Denies arthralgias or myalgias Integumentary Denies rash Neurologic Neurologic: Denies weakness Hematologic/Lymphatic Hematologic/Lymphatic: Denies easy bleeding or easy bruising EXAM Physical Exam Const Vital Signs: 08/09/23 15:27 Temperature 97.1 F L Temperature Source Temporal Pulse Rate 48 L Respiratory Rate 16 Blood Pressure 149/63 H Blood Pressure Mean 91 Pulse Ox 99 Oxygen Delivery Method Room Air Positive well nourished and well developed General Appearance ED: well developed and NAD HEENT Reports moist mucous membranes Eyes PERRL and EOMs intact bilaterally Neck supple Chest Wall inspection of chest normal and palpation of chest normal Resp normal respiratory effort and clear to auscultation bilaterally Cardio regular rate and regular rhythm GI normal to inspection, nondistended, normoactive bowel sounds and non-tender GI Narrative: No palpable hernia on exam. Normal testicular exam Palpation: Negative for guarding Extremity normal to inspection Neuro oriented x3 Sensorium / Orientation: alert Motor Exam: Negative for general weakness Psych mental status grossly normal Skin no rashes or lesions noted and no wounds MDM MDM MDM Narrative Medical decision making narrative: Patient is evaluated for right inguinal pain. On my evaluation his pain is actually completely resolved. He does not have an obvious hernia and does not appear to have any incarcerated or strangulated hernia at this time. He does not have any pain she is not given any pain medication. Protocol labs have been obtained which are all largely normal. Case is discussed with Dr. Richmond. He states the patient can follow-up outpatient in the office and they can schedule surgery. He does not need admission. Do not think he needs imaging at this time. He ambulated in the ER to ensure he stay symptomatic. Patient and significant other counseled on reduction techniques at home. Given return precautions. Counseled take Tylenol if he is still sore. Counseled to avoid straining with bowel movements. Discharged home in stable and improved condition History & Record Review Additional record(s) reviewed:: Prior outpatient record (3 outpatient visit-small right inguinal hernia, offered repair) Lab Data Attestation: I reviewed the patient's lab results. Labs: Laboratory Results - last 24 hr 08/09/23 08/09/23 15:36 16:35 WBC 6.1 RBC 4.74 Hgb 14.8 Hct 42.7 MCV 90.1 MCH 31.2 MCHC 34.7 RDW Std Deviation 44.2 H RDW Coeff of John 13.5 Plt Count 207 MPV 9.6 Immature Gran % (Auto) 0.200 Neut % (Auto) 49.9 Lymph % (Auto) 22.9 [place] % (Auto) 6.4 Eos % (Auto) 19.8 H Baso % (Auto) 0.8 Absolute Neuts (auto) 3.0 Absolute Lymphs (auto) 1.39 Nucleated RBC % 0 Platelet Estimate ADEQUATE RBC Morphology N CHROM Anisocytosis 1+ Macrocytosis 1+ Sodium 143 Potassium 3.2 L Chloride 107 Carbon Dioxide 35.0 H Anion Gap 1 L BUN 12 Creatinine 1.12 Est GFR (MDRD) Af Amer 81 Est GFR (MDRD) Non-Af 67 BUN/Creatinine Ratio 10.7 Glucose 125 H Calcium 9.3 Total Bilirubin 0.80 AST 13 L ALT 16 Alkaline Phosphatase 70 Total Protein 6.3 L Albumin 3.5 Globulin 2.8 Albumin/Globulin Ratio 1.2 Urine Color Yellow Urine Clarity Sl. Cloudy Urine pH 7.0 Ur Specific [place] 1.010 Urine Protein 30 H Urine Glucose (UA) Normal Urine Ketones Negative Urine Occult Blood 10 H Urine Nitrite Negative Urine Bilirubin Negative Urine Urobilinogen Normal Ur Leukocyte Esterase 25 H Urine RBC 0 SEEN Urine WBC 0-5 SEEN Ur Squamous Epith Cells 0-5 SEEN Amorphous Sediment 1+ Urine Bacteria 1+ Urine Mucus 0 SEEN Discharge Plan Triage Chief Complaint: Abd Pain ED Provider: Isamar Baker Dx/Rx/DC Orders Clinical Impression: Right inguinal hernia, Right inguinal pain Instructions: ED Hernia (Adult) Prescriptions: No Action omeprazole 40 mg capsule,delayed release(DR/EC) 40 mg PO DAILY 90 Days Qty: 90 Patient Comments: quetiapine 25 mg tablet 25 mg PO DAILY donepezil 10 mg tablet 10 mg PO DAILY clonazepam 1 mg tablet 1 mg PO DAILY memantine 5 mg tablet 5 mg PO BID carbidopa-levodopa 25-100 mg tablet 1.5 tab PO TID doxepin 10 mg capsule 10 mg PO DAILY nitroglycerin 0.4 mg tablet, sublingual 0.4 mg sublingual Q5-15M PRN Rx Instructions: do not exceed 3 doses per episode aspirin 81 mg tablet,chewable 81 mg PO DAILY furosemide 20 mg tablet 20 mg PO DAILY metoprolol tartrate 25 mg tablet 25 mg PO BID acetaminophen 325 mg capsule 650 mg PO BID PRN Brilinta 90 mg tablet 90 mg PO BID lisinopril 20 mg tablet 20 mg PO DAILY hydroxyzine HCl 50 mg tablet 50 mg PO QHS cholecalciferol (vitamin D3) 50 mcg (2,000 unit) capsule 50 mcg PO DAILY vitamin K2 45 mcg capsule 45 mcg PO DAILY atorvastatin 80 mg tablet 80 mg PO QHS Qty: 90 3RF Rx Instructions: Patient has been taking atorvastatin, not pravastatin. Primary Care Provider: Pb Osorio Referrals: Kishor Tee MD [Med Staff - Active Staff] - As soon as possible Pb Osorio MD [Primary Care Provider] - Activity Restrictions/Additional Instructions: Please call your surgeon's office tomorrow to schedule follow-up and surgery/repair of your hernia if that is what you choose. Take Tylenol as needed for mild pain. Disposition Disposition: Home, Self Care Discharge Date/Time: 08/09/23 18:12
== END 2023-08-09 18:12 | disposition home or self-care (01) ==
PROVIDERS: Emergency Provider Emergency Medicine; PCP Family Medicine; Visit Provider Emergency Medicine
DX: K40.90 Unilateral inguinal hernia, without obstruction or gangrene, not specified as recurrent (principal); I50.32 Chronic diastolic (congestive) heart failure; I25.10 Atherosclerotic heart disease of native coronary artery without angina pectoris; I25.2 Old myocardial infarction; Z95.5 Presence of coronary angioplasty implant and graft; Z87.891 Personal history of nicotine dependence
CPT/HCPCS: 80053; 81001; 85025; 99283

== ENCOUNTER 2023-08-20 08:10 | Day surgery (SDC) | payer MEDICARE, SELFPAY ==
--- NOTE | 2023-08-16 11:58 | EKG12_ITS ---
Test Reason : PRE OP Blood Pressure : / mmHG Vent. Rate : 074 BPM Atrial Rate : 058 BPM P-R Int : 200 ms QRS Dur : 098 ms QT Int : 444 ms P-R-T Axes : 056 -19 051 degrees QTc Int : 492 ms Sinus bradycardia with frequent Premature ventricular complexes Septal infarct , age undetermined Abnormal ECG Confirmed by TRISHA BELTRAN, JENNIFER ([id number]), editor map EDMAR MCNALLY ([id number]) on 08/22/2023 12:17:37 PM Referred By: Kishor Tee Confirmed By:JENNIFER RICO MD
[2023-08-20] VITALS (7 sets, daily range): BP systolic 114–142; BP diastolic 59–102; PULSE 50–95; RESP 16; TEMP 36.3–36.4; O2SAT 94–98; BMI 20.5
--- NOTE | 2023-08-20 08:39 | PCM.HP.STD ---
HPI - General HPI Narrative ANGEL ORTIZ, is a 77 M who presents after emergency room visit with incarcerated right inguinal hernia. The patient notes that he had a bulging which she was not able to reduce after coughing fit. He went to the emergency room and this was reduced and the patient was feeling better and he reconsidered his hernia repair. He had seen me a few months ago to discuss hernia repair and at that time he was asymptomatic and did not want hernia repair. After this recent trip to the emergency room he would like his inguinal hernia repaired. [facility] Medical History (Updated 08/14/23 @ 15:40 by Chani Delong) Alcohol use Arthritis Atherosclerosis of coronary artery of [place] heart without angina pectoris Bilateral kidney stones BPH (benign prostatic hyperplasia) Cancer Cardiology follow-up encounter Chronic cough Chronic heart failure with preserved ejection fraction (HFpEF) Dementia Depression DVT (deep venous thrombosis) Essential (primary) hypertension GERD (gastroesophageal reflux disease) High cholesterol History of CHF (congestive heart failure) History of echocardiogram History of stress test Hyperlipidemia Injury of head and neck Left nephrolithiasis Left ventricular diastolic dysfunction Leg cramps Loss of consciousness Non-smoker Parkinson's disease Prostate disease PVCs (premature ventricular contractions) Restless legs Right inguinal pain STEMI (ST elevation myocardial infarction) (~09/02/22) Urethral stricture Walker as ambulation aid Wears dentures Home Medications clonazepam 1 mg tablet 1 mg PO QHS 03/20/22 [History Last Taken Unknown] donepezil 10 mg tablet 10 mg PO DAILY 03/20/22 [History Last Taken Unknown] memantine 5 mg tablet 5 mg PO BID 03/20/22 [History Last Taken Unknown] quetiapine 25 mg tablet 25 mg PO QHS 03/20/22 [History Last Taken Unknown] aspirin 81 mg chewable tablet 81 mg PO DAILY 10/26/22 [History Last Taken Unknown] doxepin 10 mg capsule 10 mg PO QHS 10/26/22 [History Last Taken Unknown] metoprolol tartrate 25 mg tablet 50 mg PO DAILY 10/26/22 [History Last Taken Unknown] nitroglycerin 0.4 mg sublingual tablet 0.4 mg sublingual Q5-15M PRN chest pain 10/26/22 [History Last Taken Unknown] omeprazole 40 mg capsule,delayed release 40 mg PO DAILY REFLUX 90 days #90 caps 10/26/22 [History Last Taken Unknown] carbidopa 25 mg-levodopa 100 mg tablet 1.5 tab PO TID 03/01/23 [History Last Taken Unknown] atorvastatin 80 mg tablet 80 mg PO QHS #90 tabs 05/23/23 [Rx Last Taken Unknown] cholecalciferol (vitamin D3) 50 mcg (2,000 unit) capsule 50 mcg PO DAILY 07/26/23 [History Last Taken Unknown] hydroxyzine HCl 50 mg tablet 50 mg PO QHS 07/26/23 [History Last Taken Unknown] ticagrelor 90 mg tablet (Brilinta) 90 mg PO BID 07/26/23 [History Last Taken 08/14/23] vitamin K2 45 mcg capsule 45 mcg PO DAILY 07/26/23 [History Last Taken Unknown] isosorbide mononitrate 30 mg tablet,extended release 24 hr 30 mg PO DAILY 08/14/23 [History Last Taken Unknown] mirtazapine 15 mg tablet 15 mg PO QHS 08/14/23 [History Last Taken Unknown] Allergy/AdvReac Type Severity Reaction Status Date / Time clopidogrel [From Plavix] Allergy Mild Rash Verified 08/20/23 08:38 lisinopril Allergy Mild Rash Verified 08/20/23 08:38 calcium carbonate Allergy Swelling Verified 08/20/23 08:38 [From [place]isa[place]] citric acid Allergy Swelling Verified 08/20/23 08:38 [From [place]] niacin Allergy unknown Verified 08/20/23 08:38 [From Niaspan Extended-Release] onabotulinumtoxinA Allergy hives Verified 08/20/23 08:38 [From Botox] potassium bicarbonate Allergy Swelling Verified 08/20/23 08:38 [From [place]] sodium bicarbonate Allergy Swelling Verified 08/20/23 08:38 [From [place]] sulfamethoxazole Allergy Upset Verified 08/20/23 08:38 [From Bactrim] Stomach trimethoprim [From Bactrim] Allergy Upset Verified 08/20/23 08:38 Stomach Family History Brother CAD (coronary artery disease) Diabetes Mother Diabetes Surgical History (Updated 08/14/23 @ 15:40 by Chani Delong) History of cataract surgery History of coronary artery stent placement (09/02/22) History of left heart catheterization (01/09/13) History of left heart catheterization (LHC) (~09/02/22) History of lumbar fusion S/P cystoscopy with ureteral stent placement (10/2017) Social History Smoking Status: Never smoker alcohol intake: former substance use type: does not use caffeine: No what type of physical activity do you participate in: walking frequency: 3-4 times per week duration: 15-30 minutes/day seatbelt use: always do you feel safe at home: Yes ROS Constitutional Constitutional: Denies anorexia, chills or fatigue Eyes Eyes: Denies blurry vision ENT HEENT: Denies abnormal hearing Cardiovascular Cardiovascular: Denies chest pain Respiratory/Chest Respiratory/Chest: Denies cough or dyspnea Gastrointestinal Gastrointestinal: Denies abdominal pain, nausea or vomiting Genitourinary Genitourinary: Reports difficulty urinating Musculoskeletal Musculoskeletal: Denies abnormal gait Integumentary Integumentary: Denies jaundice Neurologic Neurologic: Denies abnormal gait Physical Exam Const oriented x3 and no apparent distress Resp normal respiratory effort Cardio regular rate and regular rhythm GI soft to palpation and non-tender Assessment & Plan Assessment/Plan (1) Right inguinal hernia: PLAN: Patient was recently in the emergency room for incarcerated right inguinal hernia. Patient was able to have it reduced and is feeling better but he would like this repaired so this does not happen again. The patient does report a remote left inguinal hernia repair in the past. The patient says he does not remember the right inguinal hernia being repaired at any time. I discussed robotic assisted laparoscopic right inguinal hernia repair with mesh. I discussed the risks including but not limited to bleeding, infection, injury other organs such as the bowel, bladder, ureter. Patient understands all the risks and is willing to proceed. The patient would like contralateral side fixed if there is any recurrence of hernia as he does intermittently feel pain on that side. Patient has held his blood thinners for 7 days. He may resume them on Sunday as long as surgery goes well. Kishor Tee MD Pager: [facility] [address] [place] [address], [address] [place] [address] Office:
[2023-08-20] MEDS: Lactated Ringers 1,000 ML 15 ML IV (09:02)
[2023-08-20] MEDS: Cefazolin 2 GM in 0.9% Normal Saline (100mL Bag) 100 ML IV (09:20)
--- NOTE | 2023-08-20 10:17 | OP.PCM_ITS ---
Report of Operation Date of Procedure: 08/20/23 Pre-Operative Diagnosis: Right inguinal hernia Post-Operative Diagnosis: Right inguinal hernia Surgery/Procedure Performed:: Robotic assisted laparoscopic right inguinal hernia repair with mesh Type of Anesthesia: General/Regional Specimen's removed: None Estimated Blood Loss (mL): 10 Description of Procedure: Patient was brought back to the operating room and general anesthesia was induced. The abdomen was prepped and draped in usual sterile fashion. A midline incision was made superior to the umbilicus and the fascia was grasped and elevated and a Veress needle was placed into the abdomen and a drop test was performed. Next the abdomen was insufflated 15 mmHg and the needle was removed. A port was placed into the abdomen. Camera was placed into the abdomen and it was inspected and there were no injuries from entry. Next under direct visualization an 8 mm port was placed in the right lateral abdominal sidewall as well as the left lateral abdominal sidewall. Patient was placed in Trendelenburg position and the robot was docked. The patient only had a right inguinal hernia. Next using electrocautery scissors an incision was made in the peritoneum in the right lower quadrant. Dissection was carried inferiorly until the hernia sac was identified and dissected free circumferentially. It was red uced. Next a large piece of ProGrip mesh was placed into the right inguinal region and unfolded over the hernia defect. It completely cover the defect with good overlap. Next the peritoneum was reapproximated using a running 3 OV lock suture. There was a small opening in the peritoneum and this was closed with 3- 0 Vicryl suture. At the end of the procedure the mesh was completely covered by peritoneum. Next the abdomen was allowed to desufflate and the ports were removed. The incisions were injected with local anesthetic and closed with interrupted 4-0 Monocryl sutures and Steri-Strips and bandages. The scrotum was checked at the end of the case and contain both testicles. Patient was awoken and taken to PACU in stable condition and tolerated the procedure well. Grafts/Implants Used: ProGrip mesh in the right groin Admit VTE Documentation VTE Mechan Device Prophylaxis: SCD's
--- NOTE | 2023-08-20 10:19 | DCINST_ITS ---
Discharge Instructions Procedure Hernia Diet Discharge Diet: Light diet - advance as tolerated Activity Discharge Activity: May Not Drive (for 2-3 days or while taking narcotic pain meds.) and May Shower (with the bandage in place 1-2 days after surgery.) Lifting Restrictions: 20 pounds for 4 weeks. Additional Activity Instructions:: Climbing stairs is fine, walking is encouraged. Sitting in bed may be uncomfortable. Sitting up using your lateral muscles (sitting up sideways) is usually more comfortable. Do not drive, work heavy equipment of sign legal documents for 24 hours. If your hernia repair was an inguinal repair, you may have scrotal swelling, an ice pack and/or athletic support can provide more comfort. Pain medications may cause nausea, you should typically eat light foods as you take your pain medications. Pain medications may also cause constipation. If you have difficulty with this, discuss with your doctor. Dressing / Incision Call your doctor if your incision/area has: Continuous Slow Oozing, Sudden Increased Bleeding, Increased Pain/ Swelling, Increased Redness and Foul Smelling Discharge Call your doctor if you observe: Fever of 101 or Higher Suture Line Care: Avoid Pulling/Pushing and Avoid Pinching/Bending Remove Dressing in: 2 days (Remove clear bandages in 2 days, remove Steri-Strips in 7 to 10 days.) Cleanse incision/area with: Soap & Water Follow Up Care Please Follow Up With: Kishor Tee MD When: Please call to schedule 2 week follow up appointment. [phone] Test Results: Test results from this visit will be discussed in further detail at your follow- up appointment, if applicable. Discharge Plan Admission Attending Provider: Kishor Tee Primary Care Provider: Pb Osorio Instructions Additional Instructions / Restrictions: Alternate ibuprofen and Tylenol for pain, oxycodone for breakthrough. May resume blood thinners on Sunday Discharge Orders/Prescriptions Prescriptions: New oxycodone 5 mg Tablet 5 - 10 mg PO Q4H PRN PRN (Reason: Pain Score 4-10/10) 5 Days Qty: 10 0RF No Action omeprazole 40 mg capsule,delayed release(DR/EC) 40 mg PO DAILY 90 Days Qty: 90 Patient Comments: quetiapine 25 mg tablet 25 mg PO QHS donepezil 10 mg tablet 10 mg PO DAILY clonazepam 1 mg tablet 1 mg PO QHS memantine 5 mg tablet 5 mg PO BID carbidopa-levodopa 25-100 mg tablet 1.5 tab PO TID doxepin 10 mg capsule 10 mg PO QHS nitroglycerin 0.4 mg tablet, sublingual 0.4 mg sublingual Q5-15M PRN (Reason: chest pain) Rx Instructions: do not exceed 3 doses per episode aspirin 81 mg tablet,chewable 81 mg PO DAILY metoprolol tartrate 25 mg tablet 50 mg PO DAILY Brilinta 90 mg tablet 90 mg PO BID hydroxyzine HCl 50 mg tablet 50 mg PO QHS cholecalciferol (vitamin D3) 50 mcg (2,000 unit) capsule 50 mcg PO DAILY vitamin K2 45 mcg capsule 45 mcg PO DAILY isosorbide mononitrate 30 mg tablet extended release 24 hr 30 mg PO DAILY mirtazapine 15 mg tablet 15 mg PO QHS atorvastatin 80 mg tablet 80 mg PO QHS Qty: 90 3RF Rx Instructions: Patient has been taking atorvastatin, not pravastatin. Other Ambulatory Orders: 12 Lead EKG (Routine) Timeframe: [id number] Location: None Selected Ordered By: Dr. Aakash Graff Referrals / Follow Up: Pb Osorio MD [Primary Care Provider] - Disposition Disposition (needs filled in before D/C Order can be placed): Home, Self Care
[2023-08-20] MEDS: Bupivacaine Mpf 0.5% 30 ML VIAL (10:20)
== END 2023-08-20 12:47 | disposition home or self-care (01) ==
LOC: SDC 08:11 → AC 08:11
PROVIDERS: PCP Family Medicine; Referring Provider Surgery; Visit Provider Surgery
PROC: (CPT 49650; principal; 2023-08-20 09:40)
DX: K40.90 Unilateral inguinal hernia, without obstruction or gangrene, not specified as recurrent (principal); F03.90 Unspecified dementia, unspecified severity, without behavioral disturbance, psychotic disturbance, mood disturbance, and anxiety; I11.0 Hypertensive heart disease with heart failure; I50.32 Chronic diastolic (congestive) heart failure; I25.10 Atherosclerotic heart disease of native coronary artery without angina pectoris; I25.2 Old myocardial infarction; E78.00 Pure hypercholesterolemia, unspecified; K21.9 Gastro-esophageal reflux disease without esophagitis; G20.A1 Parkinson's disease without dyskinesia, without mention of fluctuations; Z79.82 Long term (current) use of aspirin; Z79.899 Other long term (current) drug therapy; Z86.718 Personal history of other venous thrombosis and embolism; Z95.5 Presence of coronary angioplasty implant and graft
CPT/HCPCS: 49650; S2900; 00840; 93005; J7120; J2405

== ENCOUNTER → 2023-12-14 | Outpatient (CLI) | payer MEDICARE, SELFPAY ==
[2023-12-14 17:01] LABS: ALB/GLOB Ratio 1.6 RATIO (0.9-2.4); AST(SGOT) 19 U/L (15-37); Alanine Aminotransfer ALT/SGPT 12 U/L (16-61); Albumin, Serum 3.7 g/dL (3.2-5.0); Alkaline Phosphatase 75 U/L (45-117); Anion Gap 3 (5-15); BUN 8 mg/dL (7-18); BUN/Creat Ratio 8.7 RATIO (10-20); Calcium,Total 9.3 mg/dL (8.5-10.1); Chloride 107 mmol/L (98-107); Cholesterol 191 mg/dL (200); Creatinine, Serum 0.92 mg/dL (0.70-1.30); EST Glomerular Filtration Rate 84 mL/min (>60); Est Glom Filt Rate - Afr Amer 102 mL/min (>60); Globulin 2.3 g/dL (2.2-4.2); Glucose 122 mg/dL (74-106); High Density Lipoprotein 56 mg/dL; Potassium 3.8 mmol/L (3.5-5.1); Sodium Level 146 mmol/L (136-145); Triglycerides 97 mg/dL; Very Low Density Lipoprotein 19 mg/dL (5-40)
== END | disposition home or self-care (01) ==
PROVIDERS: PCP Family Medicine; Referring Provider Family Medicine; Visit Provider Family Medicine
DX: E78.5 Hyperlipidemia, unspecified (principal)
CPT/HCPCS: 36415; 80053; 80061

== ENCOUNTER → 2024-04-07 | Outpatient (CLI) | payer MEDICARE, SELFPAY ==
[2024-04-07 18:11] LABS: Anion Gap 5 (5-15); BUN 17 mg/dL (7-18); BUN/Creat Ratio 18.7 RATIO (10-20); Chloride 108 mmol/L (98-107); Creatinine, Serum 0.91 mg/dL (0.70-1.30); EST Glomerular Filtration Rate 85 mL/min (>60); Est Glom Filt Rate - Afr Amer 103 mL/min (>60); Glucose 97 mg/dL (74-106); Potassium 4.6 mmol/L (3.5-5.1); Sodium Level 145 mmol/L (136-145)
== END | disposition home or self-care (01) ==
LOC: MFPLAB 14:17
PROVIDERS: PCP Family Medicine; Visit Provider Family Medicine
DX: E87.0 Hyperosmolality and hypernatremia (principal)
CPT/HCPCS: 36415; 80048

== ENCOUNTER → 2025-06-02 | Outpatient (CLI) | payer MEDICARE, SELFPAY ==
[2025-06-02 16:09] LABS: AST(SGOT) 25 U/L (<=37); Alanine Aminotransfer ALT/SGPT 21 U/L (<=46); Albumin, Serum 4.3 g/dL (3.4-4.8); Alkaline Phosphatase 73 U/L (40-129); Anion Gap 8 (5-15); BUN 14 mg/dL (4-19); BUN/Creat Ratio 12.7 RATIO (10-20); Calcium,Total 10.0 mg/dL (7.6-11.0); Carbon Dioxide 28.0 mmol/L (21.0-32.0); Chloride 107 mmol/L (98-108); Cholesterol 167 mg/dL (<=200); Globulin 2.1 g/dL (2.2-4.2); Glucose 114 mg/dL (70-99); Low Density Lipoprotein Calc. 105 mg/dL; PSA,Total- Diagnostic 1.37 ng/mL (0.00-4.00); Potassium 4.9 mmol/L (3.3-5.1); Triglycerides 83 mg/dL; Very Low Density Lipoprotein 17 mg/dL (5-40); cholesterol:hdl ratio screen 3.68
--- OUTSIDE RECORDS SUMMARY | 2025-06-02 22:50 | XMS RPT_ITS | CCD ---
Author Organization [facility] Care Team Providers Care Production Officer Name Role Phone Sheldon Fleming Unavailable Unavailable Tamika SMITH, Beatrice Cobb Unavailable Unavailable ALMA Dunne, Samaria Pritchard Unavailable Sheldon Fleming Unavailable Unavailable Sheldon Fleming Unavailable Unavailable Ramiro Narvaez (Hist) Primary Care Provider [phone] Dr. Pb Mcneil Primary Care Provider [phone] Pb Mcneil Referring Provider Dr. Oliva Camara Attending Provider MARCO Light Attending Provider MORA BELTRAN, Jordyn Pritchard Attending Unavailab NATHANIEL Hamlin Consulting Unavailable HELENA ABDULLAHI MD Admitting Unavailable PB CROWDER Primary Care Unavailable DR MYESHA HYATT Consulting Unavailable HELENA ABDULLAHI MD Consulting Unavailable Jordyn VELAZCO MD Consulting Unavailab zoey LANGE [phone], NATHANIEL Pritchard Consulting Claire PRANAV Hermosillo MD, I Consulting Unavailable PB CROWDER Consulting PB Rajput Consulting Unavailable Dr. Pb Mcneil Primary Care Provider Chela Flaherty Attending Provider Unavailable Dr. Pb Mcneil Referring Provider Roof [employer] CLE[employer]ER, MAINS[employer] BARREL ASSEMBLY CLEANERAamir Fishman Attending Provider Dr. Pb Mcneil Primary Care Provider Dr. Pb Mcneil Referring Provider Dr. Jaime Fletcher Attending Provider Dr. Devon Pb Primary Care Provider Devon, Dr. Ambriz Referring Provider Dr. Kishor Tee Attending Provider Devon, Dr. Ambriz Primary Care Provider Devon, Dr. Ambriz Referring Provider Dr. Kishor Tee Attending Provider [phone] Kishor Tee Attending Unavailable Mcneil, Pb Referring Unavailable Mcneil, Pb Primary Care Unavailable Rosendo Romero NP Attending Unavailable Mcneil, Pb Referring Unavailable Mcneil, Pb Primary Care Unavailable Jaime Fletcher Attending Unavailable Calabretta, Kishor Referring Unavailable Mcneil, Pb Primary Care Unavailable Calabretta, Kishor Attending Unavailable Calabretta, Kishor Referring Unavailable Mcneil, Pb Primary Care Unavailable Calabretta, Kishor Consulting Unavailable Calabretta, Kishor Attending Unavailable Mcneil, Pb Referring Unavailable Mcneil, Pb Primary Care Unavailable Calabretta, Kishor Attending Unavailable Mcneil, Pb Primary Care Unavailable Calabretta, Kishor Referring Unavailable Mcneil, Pb Attending Unavailable Mcneil, Pb Primary Care Unavailable Mcneil, Pb Primary Care Unavailable Isamar Baker Attending Unavailable Mcneil, Pb Attending Unavailable Mcneil, Pb Referring Unavailable Mcneil, Pb Primary Care Unavailable Mcneil, Pb Attending Unavailable Mcneil, Pb Primary Care Unavailable Allergies Allergy Classification Reported Allergen(s) Allergy Type Date of Onset Reaction(s) Facility (5 sources) aspirin / citric acid / sodium bicarbonate drug allergy 04-19-20 11 Swelling of face [facility] Work Phone: (5 sources) niacin drug allergy 04-19-20 11 [facility] Work Phone: (5 sources) onabotulinumtoxina drug allergy 01-13-20 15 [facility] Work Phone: (6 sources) Botulinum Toxin Type A Drug Allergy 05-16-20 22 [facility] (7 sources) Calcium Carbonate; Translations: [calcium carbonate] Drug Allergy 05-16-20 22 [facility] (7 sources) Citric Acid; Translations: [citric acid] Drug Allergy 05-16-20 22 [facility] (6 sources) Niacin Drug Allergy 05-16-20 22 unknown [facility] (7 sources) potassium bicarbonate; Translations: [potassium bicarbonate] Drug Allergy 05-16-20 22 Swelling [facility] (6 sources) Sodium Bicarbonate Drug Allergy 05-16-20 22 Swelling [facility] (6 sources) Sulfamethoxazole Drug Allergy 05-16-20 22 Upset Stomach [facility] (6 sources) Trimethoprim Drug Allergy 05-16-20 22 Upset Stomach [facility] (1 source) Glutethimide Drug Allergy [facility] (1 source) rosuvastatin Drug Allergy [facility] (4 sources) clopidogrel Drug Allergy 11-13-19 23 [facility] (4 sources) Lisinopril Drug Allergy 11-13-19 23 [facility] (1 source) Botulinum Toxin Type A Drug Allergy 09-03-20 23 [facility] (1 source) clopidogrel Drug Allergy 09-03-20 23 [facility] (1 source) Lisinopril Drug Allergy 09-03-20 23 [facility] (1 source) Niacin Drug Allergy 09-03-20 23 [facility] (1 source) Sodium Bicarbonate Drug Allergy 09-03-20 23 [facility] (1 source) Sulfamethoxazole Drug Allergy 09-03-20 23 [facility] (1 source) Trimethoprim Drug Allergy 09-03-20 23 [facility] Medications Current Medications Medication Drug Class(es) Dates Sig (Normalized) Sig (Original) acetaminophen 325 mg oral capsule (3 sources) Start: 10-26-2022 take 650 mg by mouth twice daily Acetaminophen Active 650 MG PO TWICE A DAY October 26, 2022 12:00am aspirin 81 mg chewable tablet (20 sources) Platelet Aggregation Inhibitor, Nonsteroidal Anti-inflammatory Drug Start: 10-26-2022 take 81 mg by mouth once daily Aspirin Active 81 MG PO DAILY October 26, 2022 1:00am Start: 11-22-2020 End: 03-20-2022 take 81 mg by mouth every other day Aspirin Discontinued 81 MG PO .qod November 22, 2020 4:22pm March 20, 2022 2:01pm Start: 04-19-2011 End: 11-22-2020 take 81 mg by mouth once daily Aspirin Discontinued 81 MG PO DAILY@0800 October 21, 2013 1:00am November 22, 2020 4:23pm Start: 04-19-2011 take 1 tablet by derick th once daily ASPIRIN 81 MG TABS One tablet by mouth daily ASPIRIN [id number] Samantha Hickey Start: 04-19-2011 take 1 tablet by derick th once daily ASPIRIN 81 MG TABS One tablet by mouth daily ASPIRIN [id number] Samantha Hickey atorvastatin 80 mg oral tablet (7 sources) HMG-CoA Reductase Inhibitor Start: 10-26-2022 End: 05-23-2023 take 80 mg by mouth at bedtime Atorvastatin Active 80 MG PO AT BEDTIME May 23, 2023 12:57pm Patient has been taking atorvastatin, not pravastatin. carbidopa 25 mg / levodopa 100 mg oral tablet (9 sources) Aromatic Amino Acid Decarboxylation Inhibitor, Aromatic Amino Acid Start: 03-20-2022 End: 03-01-2023 take 1.5 tablets by mouth three times daily Carbidopa-Levodopa Active 1.5 TABLET PO THREE TIMES A DAY March 01, 2023 1:51pm cholecalciferol 0.05 mg oral capsule (2 sources) Vitamin D Start: 07-26-2023 take 50 ug by mouth once daily Cholecalciferol (Vitamin D3) Active 50 MCG PO DAILY July 26, 2023 12:00am clonazePAM 1 mg oral tablet (6 sources) Benzodiazepine Start: 03-20-2022 take 1 mg by mouth at bedtime Clonazepam Active 1 MG PO AT BEDTIME March 20, 2022 12:00am donepezil hydrochloride 10 mg oral tablet (6 sources) Start: 03-20-2022 take 10 mg by mouth once daily Donepezil Active 10 MG PO DAILY March 20, 2022 12:00am doxepin hydrochloride 10 mg oral capsule (16 sources) Tricyclic Antidepressant Start: 10-26-2022 take 10 mg by mouth at bedtime Doxepin Active 10 MG PO AT BEDTIME October 26, 2022 1:00am Start: 03-20-2022 End: 10-26-2022 Doxepin Discontinued 50 MG P O March 20, 2022 1:56pm October 26, 2022 6:45pm Start: 04-22-2020 End: 03-20-2022 Doxepin Discontinued PO April 22, 2020 12:00am March 20, 2022 2:01pm furosemide 20 mg oral tablet (20 sources) Loop Diuretic Start: 10-26-2022 take 20 mg by mouth once daily Furosemide Active 20 MG PO DAILY October 26, 2022 12:00am Start: 05-16-2022 End: 10-26-2022 take 1 tablet by mouth once daily Furosemide (Lasix) 40 mg tablet Discontinued 40 MG PO DAILY May 16, 2022 2:12pm October 26, 2022 6:46pm Start: 01-17-2021 End: 05-16-2022 take 1 tablet by mouth twice daily Furosemide (Lasix) 40 mg tablet Discontinued 40 MG PO TWICE A DAY August 15, 2021 5:33pm May 16, 2022 2:13pm Start: 11-23-2020 End: 01-17-2021 take 1 tablet by mouth once daily Furosemide (Lasix) 40 mg tablet Discontinued 40 MG PO TWICE A DAY January 10, 2021 1:21pm January 17, 2021 3:37pm take one daily for 5 days hydrOXYzine hydrochloride 50 mg oral tablet (8 sources) Antihistamine Start: 07-26-2023 take 50 mg by mouth at bedtime Hydroxyzine Hcl Active 50 MG PO AT BEDTIME July 26, 2023 12:00am Start: 10-05-2017 End: 03-01-2023 take 50 mg by mouth at bedtime Hydroxyzine Pamoate Dis continued 50 MG PO AT BEDTIME October 05, 2017 1:00am March 01, 2023 1:52pm 24 hr isosorbide mononitrate 30 mg extended release oral tablet (20 sources) Nitrate Vasodilator Start: 08-14-2023 End: 08-31-2023 take 30 mg by mouth once daily Isosorbide Mononitrate Active 30 MG PO DAILY August 31, 2023 12:09pm Start: 03-11-2013 End: 10-26-2022 take 30 mg by mouth once daily Isosorbide Mononitrate Discontinued 30 MG PO DAILY July 19, 2022 9:08am October 26, 2022 6:49pm Start: 03-11-2013 take 1 tablet by derick once daily IMDUR 30 MG [id number] One tablet by mouth daily ISOSORBIDE MONONITRATE [id number] Waldemar Head MD Start: 03-11-2013 take 1 tablet by derick th once daily IMDUR 30 MG [id number] One tablet by mouth daily ISOSORBIDE MONONITRATE [id number] Jaime Fletcher MD Start: 03-11-2013 take 1 tablet by derick th once daily IMDUR 30 MG [id number] One tablet by mouth daily ISOSORBIDE MONONITRATE Waldemar Head MD Start: 03-11-2013 take 1 tablet by derick th once daily IMDUR 30 MG [id number] One tablet by mouth daily ISOSORBIDE MONONITRATE Jaime Fletcher MD lisinopril 20 mg oral tablet (5 sources) Angiotensin Converting Enzyme Inhibitor Start: 07-26-2023 take 20 mg by mouth once daily Lisinopril Active 20 MG PO DAILY July 25, 2023 11:00pm Start: 10-26-2022 End: 11-13-2022 take 5 mg by mouth once daily Lisinopril Discontinued 5 MG PO DAILY October 26, 2022 1:00am November 13, 2022 2:33pm memantine hydrochloride 5 mg oral tablet (6 sources) F-epdtjp-U-aspartate Receptor Antagonist Start: 03-20-2022 take 5 mg by mouth twice daily Memantine Active 5 MG PO TWICE A DAY March 20, 2022 12:00am metoprolol tartrate 50 mg oral tablet (20 sources) beta-Adrenergic Maria R Start: 08-31-2023 take 50 mg by mouth once daily Metoprolol Tartrate Active 50 MG PO DAILY August 31, 2023 12:09pm Start: 10-26-2022 End: 08-31-2023 take 50 mg by mouth once daily Metoprolol Tartrate Dis continued 50 MG PO DAILY October 26, 2022 1:00am August 31, 2023 12:09pm Start: 10-26-2022 take 25 mg by mouth twice leatha y Metoprolol Tartrate Active 25 MG PO TWICE A DAY October 26, 2022 12:00am Start: 06-11-2013 take 1 tablet by derick th once daily TOPROL XL 100 MG [id number] One tablet by mouth daily METOPROLOL SUCCINATE [id number] Samaria Dunne PA-C Start: 06-11-2013 take 1 tablet by derick th once daily TOPROL XL 100 MG [id number] One half (0.5) tablet by mouth daily METOPROLOL SUCCINATE [id number] Samaria Dunne PA-C Start: 06-11-2013 take 1 tablet by derick th once daily TOPROL XL 100 MG [id number] One tablet by mouth daily METOPROLOL SUCCINATE [id number] Samaria Dunne PA-C Start: 06-11-2013 take 1 tablet by derick th once daily TOPROL XL 100 MG [id number] One half (0.5) tablet by mouth daily METOPROLOL SUCCINATE [id number] Samaria Dunne PA-C Start: 04-19-2011 End: 10-26-2022 take 100 mg by mouth once daily Metoprolol Succinate Discontinued 100 MG PO DAILY July 19, 2022 9:08am October 26, 2022 6:47pm Start: 04-19-2011 take 1 tablet by derick th once daily TOPROL XL 100 MG [id number] One tablet by mouth daily METOPROLOL SUCCINATE [id number] Samantha Hickey Start: 04-19-2011 take 1 tablet by derick th once daily TOPROL XL 100 MG [id number] One tablet by mouth daily METOPROLOL SUCCINATE [id number] Samantha Hickey mirtazapine 15 mg oral tablet (1 source) Start: 08-14-2023 take 15 mg by mouth at bedtime Mirtazapine Active 15 MG PO AT BEDTIME August 14, 2023 1:00am nitroglycerin 0.4 mg sublingual tablet (14 sources) Nitrate Vasodilator Start: 10-26-2022 Nitroglycerin Active 0.4 MG SL every 5 to 15 minutes October 26, 2022 1:00am do not exceed 3 doses per episode Start: 05-01-2012 NITROSTAT 0.4 MG SUBL 1 tablet under tongue every 5 min up to 3 X NITROGLYCERIN [id number] Samaria Dunne PA-C Start: 04-19-2011 NITROGLYCERIN 0.4 MG/HR PT24 1 tablet under tongue every 5 min up to 3 X NITROGLYCERIN [id number] Jamie Fletcher MD omeprazole 40 mg delayed release oral capsule (20 sources) Proton Pump Inhibitor Start: 09-20-2017 End: 10-26-2022 take 40 mg by mouth once daily Omeprazole Active 40 MG PO DAILY 90 90 October 26, 2022 6:48pm Start: 10-28-2013 End: 10-29-2013 take 1 tablet by mouth once daily OMEPRAZOLE 40 MG CPDR One tablet by mouth daily OMEPRAZOLE [id number] Jaime Fletcher MD oxyCODONE hydrochloride 5 mg oral tablet (1 source) Opioid Agonist Start: 08-20-2023 take 5-10 mg by mouth every four hours as needed Oxycodone Active 5 - 10 MG PO EVERY 4 HOURS NEEDED 10 August 20, 2023 QUEtiapine 25 mg oral tablet (6 sources) Atypical Antipsychotic Start: 03-20-2022 take 25 mg by mouth at bedtime Quetiapine Active 25 MG PO AT BEDTIME March 20, 2022 12:00am ticagrelor 90 mg oral tablet (6 sources) Start: 07-26-2023 take 1 tablet by mouth twice daily Ticagrelor (Brilinta) 90 mg tablet Active 90 MG PO TWICE A DAY July 26, 2023 12:00am Start: 09-14-2022 End: 10-26-2022 take 1 tablet by mouth twice daily Ticagrelor (Brilinta) 90 mg tablet Discontinued 90 MG PO TWICE A DAY 60 September 14, 2022 1:00am October 26, 2022 6:48pm vitamin K2 (2 sources) Start: 07-26-2023 take 45 ug by mouth once daily Vitamin K2 Active 45 MCG PO DAILY July 26, 2023 12:00am Start: 07-26-2023 take 45 ug by mouth once daily Vitamin K2 Active 45 MCG PO DAILY July 25, 2023 11:00pm Completed/Discontinued Medications Medication Drug Class(es) Dates Sig (Normalized) Sig (Original) acetaminophen 325 mg / HYDROcodone bitartrate 5 mg oral tablet (6 sources) Opioid Agonist Start: 01-22-2019 End: 01-29-2019 take 1 tablet by mouth every four hours as needed Hydrocodone-Aceta minophen Discontinued 1 TABLET PO EVERY 4 HOURS NEEDED 19 04January 22, 2019 12:00am January 29, 2019 12:07am cephalexin 500 mg oral capsule (6 sources) Cephalosporin Antibacterial Start: 09-08-2017 End: 09-20-2017 take 500 mg by mouth every six hours Cephalexin Discontinued 500 MG PO EVERY 6 HOURS 40 September 08, 2017 1:00am September 20, 2017 2:57pm citalopram 20 mg oral tablet (20 sources) Serotonin Reuptake Inhibitor Start: 05-01-2012 End: 09-20-2017 take 20 mg by mouth once daily Citalopram Discontinued 20 MG PO DAILY October 21, 2013 1:00am September 20, 2017 1:49pm clopidogrel 75 mg oral tablet (4 sources) [id number] Platelet Inhibitor Start: 10-26-2022 End: 11-13-2022 take 1 tablet by mouth once daily Clopidogrel (Plavix) 75 mg tablet Discontinued 75 MG PO DAILY October 26, 2022 1:00am November 13, 2022 2:33pm dicyclomine hydrochloride 20 mg oral tablet (6 sources) Anticholinergic Start: 12-11-2018 End: 04-22-2020 take 20 mg by mouth three times daily Dicyclomine Discontinued 20 MG PO THREE TIMES A DAY December 11, 2018 12:00am April 22, 2020 1:40pm doxycycline hyclate 100 mg oral tablet (10 sources) Tetracycline-class Drug Start: 04-19-2011 End: 05-01-2012 take 1 tablet by mouth once daily DOXYCYCLINE HYCLATE 100 MG TABS One tablet by mouth daily for rosacea DOXYCYCLINE HYCLATE [id number] Samantha Hickey DULoxetine 30 mg delayed release oral capsule (6 sources) Serotonin and Norepinephrine Reuptake Inhibitor Start: 09-20-2017 End: 04-09-2018 take 1 capsule by mouth once daily Duloxetine (Cymbalta) 30 mg capsule,delayed release(DR/EC) Discontinued 30 MG PO daily September 20, 2017 1:00am April 09, 2018 12:57pm gabapentin 300 mg oral capsule (20 sources) Anti-epileptic Agent Start: 09-20-2017 End: 03-20-2022 take 600 mg by mouth at bedtime Gabapentin Discontinued 600 MG PO AT BEDTIME 180 90 September 20, 2017 1:00am March 20, 2022 1:56pm Start: 03-12-2017 take 2 tablets by mo uth once daily GABAPENTIN 300 MG CAPS Two tablets by mouth daily GABAPENTIN [id number] Samaria Dunne PA-C Start: 05-01-2012 End: 10-29-2013 take 1 tablet by mouth once daily at bedtime GABAPENTIN 300 MG CAPS One tablet by mouth daily at bedtime GABAPENTIN [id number] Janny Humphries RN lansoprazole 15 mg disintegrating oral tablet (20 sources) Proton Pump Inhibitor Start: 10-29-2013 End: 10-29-2013 take 1 tablet by mouth once daily PREVACID 15 MG CPDR One tablet by mouth daily LANSOPRAZOLE [id number] Janny Humphries RN Start: 10-21-2013 End: 09-20-2017 take 15 mg by mouth once daily Lansoprazole Discontinu ed 15 MG PO DAILY October 21, 2013 1:00am September 20, 2017 1:49pm Start: 04-26-2012 take 1 tablet by derick th once daily as needed PREVACID 30 MG CPDR One tablet by mouth daily as needed LANSOPRAZOLE [id number] Lisa Guerrero RN Start: 04-26-2012 take 1 tablet by derick th once daily as needed PREVACID 30 MG CPDR One tablet by mouth daily as needed LANSOPRAZOLE [id number] Lisa Guerrero RN melatonin 5 mg oral tablet (10 sources) Start: 04-26-2012 End: 10-29-2013 take 1 tablet by mouth once daily as needed MELATONIN 5 MG TABS One tablet by mouth daily as needed MELATONIN [id number] Janny Humphries RN methylPREDNISolone 4 mg oral tablet (4 sources) Corticosteroid Start: 09-14-2022 End: 10-26-2022 take 1 tablet by mouth once Methylprednisolone (Medrol (Mulugeta)) 4 mg tablets,dose pack Discontinued 4 MG PO per package directions September 14, 2022 1:00am October 26, 2022 6:49pm metroNIDAZOLE 7.5 mg/ml topical cream (10 sources) Nitroimidazole Antimicrobial Start: 04-19-2011 End: 03-12-2017 METRONIDAZOLE 0.75 % CREA Apply topically twice a day for rosacea METRONIDAZOLE [id number] Samaria Dunne PA-C MULTIPLE VITAMIN (2 sources) Start: 04-19-2011 take 1 tablet by mouth once daily MULTIVITAMINS TABS One tablet by mouth daily MULTIPLE VITAMIN [id number] Samantha Hickey MULTIPLE VITAMIN (3 sources) Start: 04-19-2011 take 1 tablet by mouth once daily MULTIVITAMINS TABS One tablet by mouth daily MULTIPLE VITAMIN [id number] Samantha Hickey pramipexole dihydrochloride 0.5 mg oral tablet (6 sources) Nonergot Dopamine Agonist Start: 04-22-2020 End: 03-20-2022 Pramipexole Discontinued MG PO April 22, 2020 12:00am March 20, 2022 2:01pm 12 hr ranolazine 500 mg extended release oral tablet (20 sources) Anti-anginal Start: 09-20-2017 End: 03-20-2022 take 500 mg by mouth twice daily Ranolazine Discontinued 500 MG PO TWICE A DAY 180 August 02, 2020 11:11am March 20, 2022 2:01pm Start: 10-29-2013 take 1 tablet by derick th twice daily RANEXA 500 MG [id number] One tablet by mouth twice daily RANOLAZINE [id number] Samaria Dunne PA-C Start: 10-29-2013 take 1 tablet by derick th twice daily RANEXA 500 MG [id number] One tablet by mouth twice daily RANOLAZINE [id number] Samaria Dunne PA-C rosuvastatin calcium 40 mg oral tablet (20 sources) HMG-CoA Reductase Inhibitor Start: 10-21-2013 End: 10-26-2022 take 40 mg by mouth at bedtime Rosuvastatin Discontinued 40 MG PO AT BEDTIME 90 April 26, 2022 4:06pm October 26, 2022 6:48pm Start: 04-19-2011 take 1 tablet by derick th once daily CRESTOR 20 MG TABS One tablet by mouth daily ROSUVASTATIN CALCIUM [id number] Samantha M Hickey Problems Active Problems Problem Classification Problem Date Documented Da te Episodic/Chronic Acute myocardial infarction (3 sources) ST elevation (STEMI) myocardial infarction involving other coronary artery of inferior wall; Translations: [ST ELEVATION ND COR ART INF WALL] Onset: 2022 Chronic Calculus of urinary tract (6 sources) Kidney stone; Translations: [Calculus of kidney] 01-22-2019 Episodic Cardiac dysrhythmias (8 sources) Ventricular premature beats; Translations: [Ventricular premature depolarization] Chronic Complication of device; implant or graft (1 source) Stenosis of coronary artery stent, initial encounter; Translations: [STENOSIS CORONARY ARTERY STENT INIT] Onset: 09-08-2022 Episodic Congestive heart failure; nonhypertensive (9 sources) Heart failure with normal ejection fraction; Translations: [Chronic diastolic (congestive) heart failure] Chronic Coronary atherosclerosis and other heart disease (20 sources) Coronary atherosclerosis; Translations: [Angina pectoris] Onset: 04-19-2011 04-19-2011 Chronic Delirium, dementia, and amnestic and other cognitive disorders (2 sources) Alzheimer's disease with late onset; Translations: [Dementia in other diseases classified elsewhere without behavioral disturbance] Onset: 09-08-2022 Chronic Disorders of lipid metabolism (17 sources) Hyperlipidemia; Translations: [Hyperlipidemia, unspecified] Onset: 04-19-2011 04-19-2011 Chronic E Codes: Adverse effects of medical care (1 source) Surgical operation with implant of artificial internal device as the cause of abnormal reaction of the patient, or of later complication, without mention of misadventure at the time of the procedure; Translations: [SURG IMPL ART INTL DEV ABN RXN/COMP] Onset: 09-08-2022 Episodic Essential hypertension (11 sources) Essential hypertension; Translations: [Essential (primary) hypertension] Onset: 09-08-2022 Chronic Fluid and electrolyte disorders (6 sources) Hypokalemia; Translations: [Hyperosmolality and hypernatremia] Onset: 04-26-2012 04-26-2012 Episodic Other and ill-defined heart disease (6 sources) Left ventricular diastolic dysfunction ; Translations: [Heart disease, unspecified] 05-19-2020 Chronic Other lower respiratory disease (6 sources) Chronic cough; Translations: [Chronic cough] 09-14-2021 Episodic Parkinson`s disease (1 source) Parkinson's disease; Translations: [PARKINSONS DISEASE] Onset: 09-08-2022 Chronic Spondylosis; intervertebral disc disorders; other back problems (6 sources) Backache; Translations: [Dorsalgia, unspecified] 01-22-2019 Episodic Unclassified (3 sources) Long-term drug therapy; Translations: [Other half-way (current) drug therapy] Onset: 04-19-2011 04-19-2011 Viral infection (6 sources) Disease caused by 2019-nCoV; Translations: [COVID-19] 10-05-2020 Episodic Past or Other Problems Problem Classification Problem Date Documented Da te Episodic/Chronic Abdominal hernia (6 sources) Right inguinal hernia ; Translations: [Unilateral inguinal hernia, without obstruction or gangrene, not specified as recurrent] Onset: 09-04-2023 08-09-2023 Episodic Abdominal pain (15 sources) Left lower quadrant pain; Translations: [Left lower quadrant pain] Onset: 08-14-2023 Episodic Cardiac dysrhythmias (5 sources) Palpitations; Translations: [Palpitations] Onset: 04-19-2011 04-19-2011 Episodic Coronary atherosclerosis and other heart disease (10 sources) Coronary angioplasty status; Translations: [Presence of coronary angioplasty implant and graft] Onset: 11-14-1998 04-19-2011 Episodic Malaise and fatigue (5 sources) Fatigue; Translations: [Other fatigue] Onset: 06-11-2013 06-11-2013 Episodic Nonspecific chest pain (5 sources) Chest pain, unspecified; Translations: [Chest pain, unspecified] Onset: 01-08-2013 01-08-2013 Episodic Other aftercare (2 sources) Other half-way (current) drug therapy; Translations: [Other half-way (current) drug therapy] Onset: 04-19-2011 04-19-2011 Episodic Other nutritional; endocrine; and metabolic disorders (12 sources) Body mass index (BMI) 28.0-28.9, adult; Translations: [Body mass index (BMI) 27.0-27.9, adult] Onset: 01-13-2014 03-12-2017 Episodic Other nutritional; endocrine; and metabolic disorders (3 sources) Body mass index (BMI) 26.0-26.9, adult; Translations: [Body mass index (BMI) 26.0-26.9, adult] Onset: 01-13-2014 01-13-2014 Episodic Results Test Name Value Interpretation Reference Range Facility Basic Metabolic Profile (BMP )on 04-07-2024 BUN/CRE 18.7 RATIO Normal 10-20 [facility] Comment on above: Performed By: #### L 500.2500 #### [facility] [address] [place], [address] CA,Total 10.0 mg/dL Normal 8.5-10.1 [facility] Comment on above: Performed By: #### L 500.2500 #### [facility] [address] [place], [address] Chloride [Moles/Vol] 108 mmol/L High 98-107 [facility] Comment on above: Performed By: #### L 500.2500 #### [facility] [address] [place], [address] CO2 [Moles/Vol] 32.0 mmol/L Normal 21.0-32.0 [facility] Comment on above: Performed By: #### L 500.2500 #### [facility] [address] [place], [address] Creatinine [Mass/Vol] 0.91 mg/dL Normal 0.70-1.30 [facility] Comment on above: Result Comment: The validity of the calculated GFR GFRAA in patients over 70 years has not been determined. Clinical correlation is essential. Performed By: #### L 500.2500 #### [facility] [address] [place], [address] EST GFR - AA 103 mL/min Normal >60 [facility] Comment on above: Result Comment: Afri can Russian GFR Calc Performed By: #### L 500.2500 #### [facility] [address] [place], [address] GAP 5 Normal 5-15 [facility] Comment on above: Performed By: #### L 500.2500 #### [facility] [address] [place], [address] GFR/1.73 sq M.predicted among non-blacks MDRD (S/P/Bld) [Vol rate/Area] 85 mL/min/{1.73_m2} Normal >60 [facility] Comment on above: Result Comment: Non- GFR Calc Performed By: #### L 500.2500 #### [facility] [address] [place], [address] Glucose [Mass/Vol] 97 mg/dL Normal 74-106 [facility] Comment on above: Performed By: #### L 500.2500 #### [facility] [address] [place], [address] Potassium [Moles/Vol] 4.6 mmol/L Normal 3.5-5.1 [facility] Comment on above: Performed By: #### L 500.2500 #### [facility] [address] [place], [address] Sodium [Moles/Vol] 145 mmol/L Normal 136-145 [facility] Comment on above: Performed By: #### L 500.2500 #### [facility] [address] [place], [address] Urea nitrogen [Mass/Vol] 17 mg/dL Normal 7-18 [facility] Comment on above: Performed By: #### L 500.2500 #### [facility] [address] [place], [address] Basophil percentageOrdered B y: Pb Mcneil on 12-14-2023 Bilirubin [Mass/Vol] 0.70 mg/dL 0.20-1.00 [facility] Comment on above: For patients on eltr ombopag therapy, use of Dimension [place] TBIL is not recommended. Chloride [Moles/Vol] 107 mmol/L 98-107 [facility] Cholesterol [Mass/Vol] 191 mg/dL <200 [facility] Comment on above: <200 mg/dL Desirable 200-240 mg/dL Borderline >240 mg/dL High Risk Glucose [Mass/Vol] 122 mg/dL 74-106 [facility] Comment on above: Fasting Glucose resu lt from 100 to 125 mg/dL suggests IMPAIRED HOMEOSTASIS per A.D.A. criteria. Potassium [Moles/Vol] 3.8 mmol/L 3.5-5.1 [facility] Protein [Mass/Vol] 6.0 g/dL 6.4-8.2 [facility] Sodium [Moles/Vol] 146 mmol/L 136-145 [facility] Triglyceride [Mass/Vol] 97 mg/dL <199 [facility] Comment on above: The drugs N-Acetylcy steine and Metamizole may falsely depress this assay.Serum Triglycerides Reference Interval Normal <150 mg/dL Borderline high 150 - 199 mg/dL High 200 - 499 mg/dL Very High > or = 500 mg/dL Comprehensive Metabolic Prof ilon 12-14-2023 Albumin [Mass/Vol] 3.7 g/dL Normal 3.2-5.0 [facility] Comment on above: Performed By: #### L 500.4100, L500.4050 #### [facility] [address] [place], [address] Albumin/Globulin [Mass ratio] 1.6 {ratio} Normal 0.9-2.4 [facility] Comment on above: Performed By: #### L 500.4100, L500.4050 #### [facility] [address] [place], [address] ALK P 75 U/L Normal 45-117 [facility] Comment on above: Performed By: #### L 500.4100, L500.4050 #### [facility] [address] [place], [address] ALT [Catalytic activity/Vol] 12 U/L Low 16-61 [facility] Comment on above: Performed By: #### L 500.4100, L500.4050 #### [facility] [address] [place], [address] AST [Catalytic activity/Vol] 19 U/L Normal 15-37 [facility] Comment on above: Performed By: #### L 500.4100, L500.4050 #### [facility] [address] [place], [address] Bilirubin [Mass/Vol] 0.70 mg/dL Normal 0.20-1.00 [facility] Comment on above: Result Comment: For patients on eltrombopag therapy, use of Dimension [place] TBIL is not recommended. Performed By: #### L 500.4100, L500.4050 #### [facility] [address] [place], [address] BUN/CRE 8.7 RATIO Low 10-20 [facility] Comment on above: Performed By: #### L 500.4100, L500.4050 #### [facility] [address] [place], [address] CA,Total 9.3 mg/dL Normal 8.5-10.1 [facility] Comment on above: Performed By: #### L 500.4100, L500.4050 #### [facility] [address] [place], [address] Chloride [Moles/Vol] 107 mmol/L Normal 98-107 [facility] Comment on above: Performed By: #### L 500.4100, L500.4050 #### [facility] [address] [place], [address] CO2 [Moles/Vol] 36.0 mmol/L High 21.0-32.0 [facility] Comment on above: Performed By: #### L 500.4100, L500.4050 #### [facility] [address] [place], [address] Creatinine [Mass/Vol] 0.92 mg/dL Normal 0.70-1.30 [facility] Comment on above: Result Comment: The validity of the calculated GFR GFRAA in patients over 70 years has not been determined. Clinical correlation is essential. Performed By: #### L 500.4100, L500.4050 #### [facility] [address] [place], [address] EST GFR - AA 102 mL/min Normal >60 [facility] Comment on above: Result Comment: Afri can [place] GFR Calc Performed By: #### L 500.4100, L500.4050 #### [facility] [address] [place], [address] GAP 3 Low 5-15 [facility] Comment on above: Performed By: #### L 500.4100, L500.4050 #### [facility] [address] [place], [address] GFR/1.73 sq M.predicted among non-blacks MDRD (S/P/Bld) [Vol rate/Area] 84 mL/min/{1.73_m2} Normal >60 [facility] Comment on above: Result Comment: Non- GFR Calc Performed By: #### L 500.4100, L500.4050 #### [facility] [address] [place], [address] Globulin (S) [Mass/Vol] 2.3 g/dL Normal 2.2-4.2 [facility] Comment on above: Performed By: #### L 500.4100, L500.4050 #### [facility] [address] [place], [address] Glucose [Mass/Vol] 122 mg/dL High 74-106 [facility] Comment on above: Result Comment: Fast ing Glucose result from 100 to 125 mg/dL suggests IMPAIRED HOMEOSTASIS per A.D.A. criteria. Performed By: #### L 500.4100, L500.4050 #### [facility] [address] [place], [address] Potassium [Moles/Vol] 3.8 mmol/L Normal 3.5-5.1 [facility] Comment on above: Performed By: #### L 500.4100, L500.4050 #### [facility] [address] [place], [address] Sodium [Moles/Vol] 146 mmol/L High 136-145 [facility] Comment on above: Performed By: #### L 500.4100, L500.4050 #### [facility] [address] [place], [address] T PROT 6.0 g/dL Low 6.4-8.2 [facility] Comment on above: Performed By: #### L 500.4100, L500.4050 #### [facility] [address] [place], [address] Urea nitrogen [Mass/Vol] 8 mg/dL Normal 7-18 [facility] Comment on above: Performed By: #### L 500.4100, L500.4050 #### [facility] [address] [place], [address] Laboratory - Chemistry and C hemistry - challengeOrdered By: Pb Mcneil on 12-14-2023 Albumin/Globulin [Mass ratio] 1.6 {ratio} 0.9-2.4 [facility] ALP [Catalytic activity/Vol] 75 U/L 45-117 [facility] ALT [Catalytic activity/Vol] 12 U/L 16-61 [facility] Cholesterol in HDL [Mass/Vol] 56 mg/dL >40 [facility] Comment on above: The drugs N-Acetylcy steine and Metamizole may falsely depress this assay. Reference Range HDL <40 mg/dL Low HDL Cholesterol HDL >or= 60 mg/dL High HDL Cholesterol Cholesterol in LDL [Mass/Vol] 116 mg/dL 0-130 [facility] CO2 [Moles/Vol] 36.0 mmol/L 21.0-32.0 [facility] Globulin (S) [Mass/Vol] 2.3 g/dL 2.2-4.2 [facility] Urea nitrogen/Creatinine [Mass ratio] 8.7 mg/mg 10-20 [facility] Lipid Profileon 12-14-2023 Cholesterol [Mass/Vol] 191 mg/dL Normal 200 [facility] Comment on above: Result Comment: <200 mg/dL Desirable 200-240 mg/dL Borderline >240 mg/dL High Risk Performed By: #### L 500.4100, L500.4050 #### [facility] [address] [place], [address] Cholesterol in HDL [Mass/Vol] 56 mg/dL Normal [facility] Comment on above: Result Comment: The drugs N-Acetylcysteine and Metamizole may falsely depress this assay. Reference Range HDL <40 mg/dL Low HDL Cholesterol HDL >or= 60 mg/dL High HDL Cholesterol Performed By: #### L 500.4100, L500.4050 #### [facility] [address] [place], [address] Cholesterol in LDL [Mass/Vol] 116 mg/dL Normal 0-130 [facility] Comment on above: Performed By: #### L 500.4100, L500.4050 #### [facility] [address] [place], [address] Cholesterol in VLDL [Mass/Vol] 19 mg/dL Normal 5-40 [facility] Comment on above: Performed By: #### L 500.4100, L500.4050 #### [facility] [address] [place], [address] Triglyceride [Mass/Vol] 97 mg/dL Normal [facility] Comment on above: Result Comment: The drugs N-Acetylcysteine and Metamizole may falsely depress this assay. Serum Triglycerides Reference Interval Normal <150 mg/dL Borderline high 150 - 199 mg/dL High 200 - 499 mg/dL Very High > or = 500 mg/dL Performed By: #### L 500.4100, L500.4050 #### [facility] [address] [place], [address] No Panel InformationOrdered By: Pb Mcneil on 12-14-2023 Estimated GFR (MDRD) Amer 102 mL/min >60 [facility] Comment on above: GFR Calc Estimated GFR (MDRD) Non-Af Amer 84 mL/min >60 [facility] Comment on above: Non- GFR Calc VLDL Cholesterol 19 mg/dL 5-40 [facility] Serum or plasma calcium santa urement (mass/volume)Ordered By: Pb Mcneil on 12-14-2023 Calcium [Mass/Vol] 9.3 mg/dL 8.5-10.1 [facility] Serum or plasma creatinine m easurement (mass/volume)Ordered By: Pb Mcneil on 12-14-2023 Creatinine [Mass/Vol] 0.92 mg/dL 0.70-1.30 [facility] Comment on above: The validity of the calculated GFR & GFRAA in patients over 70 years has not been determined. Clinical correlation is essential. Serum or plasma urea nitroge n measurement (mass/volume)Ordered By: Pb Mcneil on 12-14-2023 Urea nitrogen [Mass/Vol] 8 mg/dL 7-18 [facility] Thin prep Papanicolaou smear with manual screeningOrdered By: Pb Mcneil on 12-14-2023 Thin prep Papanicolaou smear with manual screening 3.7 g/dL 3.2-5.0 [facility] Thin prep Papanicolaou smear with manual screening 19 U/L 15-37 [facility] Thin prep Papanicolaou smear with manual screening 3 5-15 [facility] Surgery Visit Reporton 09-03 Surgery Visit Report [facility] [address] [place] [address] OFFICE VISIT Date of Service: 09/03/23 MR#: [id number] Acct: [id number] Name: ANGEL MTZ Rep #: [id number] : 1945 Provider: Dr. Kishor lopes MD Age/Sex: 78/M Location: [facility] Status: Signed Intake Vital Signs 08/20/23 08:50 Height 5 ft 5 in Intake Visit Reasons: HERNIA 08-20 Chief Complaint: Right Inguinal Hernia f/u Bottom Cager Required: No Is patient in pain?: No Allergies clopidogrel [From Plavix] Allergy (Mild, Verified 09/03/23 14:07) Rash lisinopril Allergy (Mild, Verified 09/03/23 14:07) Rash calcium carbonate [From Leisa-Randolph] Allergy (Verified 09/03/23 14:07) Swelling citric acid [From Leisa-Randolph] Allergy (Verified 09/03/23 14:07) Swelling niacin [From Niaspan Extended-Release] Allergy (Verified 09/03/23 14:07) unknown onabotulinumtoxinA [From Botox] Allergy (Verified 09/03/23 14:07) hives potassium bicarbonate [From Leisa-Randolph] Allergy (Verified 09/03/23 14:07) Swelling sodium bicarbonate [From Leisa-Randolph] Allergy (Verified 09/03/23 14:07) Swelling sulfamethoxazole [From Bactrim] Allergy (Verified 09/03/23 14:07) Upset Stomach trimethoprim [From Bactrim] Allergy (Verified 09/03/23 14:07) Upset Stomach Medications clonazepam 1 mg tablet 1 mg PO QHS 03/20/22 [History Confirmed 09/03/23] donepezil 10 mg tablet 10 mg PO DAILY 03/20/22 [History Confirmed 09/03/23] memantine 5 mg tablet 5 mg PO BID 03/20/22 [History Confirmed 09/03/23] quetiapine 25 mg tablet 25 mg PO QHS 03/20/22 [History Confirmed 09/03/23] aspirin 81 mg chewable tablet 81 mg PO DAILY 10/26/22 [History Confirmed 09/03/23] doxepin 10 mg capsule 10 mg PO QHS 10/26/22 [History Confirmed 09/03/23] nitroglycerin 0.4 mg sublingual tablet 0.4 mg sublingual Q5-15M PRN chest pain 10/26/22 [History Confirmed 09/03/23] omeprazole 40 mg capsule,delayed release 40 mg PO DAILY REFLUX 90 days #90 caps 10/26/22 [History Confirmed 09/03/23] carbidopa 25 mg-levodopa 100 mg tablet 1.5 tab PO TID 03/01/23 [History Confirmed 09/03/23] atorvastatin 80 mg tablet 80 mg PO QHS #90 tabs 05/23/23 [Rx Confirmed 09/03/23] cholecalciferol (vitamin D3) 50 mcg (2,000 unit) capsule 50 mcg PO DAILY 07/26/23 [History Confirmed 09/03/23] hydroxyzine HCl 50 mg tablet 50 mg PO QHS 07/26/23 [History Confirmed 09/03/23] ticagrelor 90 mg tablet (Brilinta) 90 mg PO BID 07/26/23 [History Confirmed 09/03/23] vitamin K2 45 mcg capsule 45 mcg PO DAILY 07/26/23 [History Confirmed 09/03/23] mirtazapine 15 mg tablet 15 mg PO QHS 08/14/23 [History Confirmed 09/03/23] oxycodone 5 mg tablet 5 - 10 mg (1 - 2 x 5 mg) PO Q4H PRN PRN Pain Score 4-10/10 5 days #10 tabs 08/20/23 [Rx Confirmed 09/03/23] isosorbide mononitrate 30 mg tablet,extended release 24 hr 30 mg PO DAILY #90 tabs 08/31/23 [Rx Confirmed 09/03/23] metoprolol tartrate 50 mg tablet 50 mg PO DAILY #90 tabs 08/31/23 [Rx Confirmed 09/03/23] Subjective Details: Patient is doing well with no complaints. Objective Details: Abdomen is soft and incisions are healing well. Coding Level of Care Code Global Post Op Diagnoses Right inguinal hernia K40.90 [facility] Medical History (Updated 08/14/23 @ 15:40 by Chani Delong) Alcohol use Arthritis Atherosclerosis of coronary artery of [place] heart without angina pectoris Bilateral kidney stones BPH (benign prostatic hyperplasia) Cancer Cardiology follow-up encounter Chronic cough Chronic heart failure with preserved ejection fraction (HFpEF) Dementia Depression DVT (deep venous thrombosis) Essential (primary) hypertension GERD (gastroesophageal reflux disease) High cholesterol History of CHF (congestive heart failure) History of echocardiogram History of stress test Hyperlipidemia Injury of head and neck Left nephrolithiasis Left ventricular diastolic dysfunction Leg cramps Loss of consciousness Non-smoker Parkinson's disease Prostate disease PVCs (premature ventricular contractions) Restless legs Right inguinal pain STEMI (ST elevation myocardial infarction) ( 09/02/22) Urethral stricture Walker as ambulation aid Wears dentures Surgical History (Updated 08/14/23 @ 15:40 by Chani Delong) History of cataract surgery History of coronary artery stent placement (09/02/22) History of left heart catheterization (01/09/13) History of left heart catheterization (LHC) ( 09/02/22) History of lumbar fusion S/P cystoscopy with ureteral stent placement (10/2017) Family History Brother CAD (coronary artery disease) Diabetes Mother Diabetes Social History Smoking Status: Never smoker alcohol intake: former substance use type: does not u (more content not included)... Normal [facility] Discharge Instructionon 08-02 Discharge Instruction [facility] Medical Records Department [address] [place] [address] Instructions for Home/Discharge Instructions 08/20/23 1019 MR#: [id number] Acct: [id number] Name: ANGEL MTZ Rep #: [id number] : 1945 77 From: Kishor Tee MD PCP: Dr. Pb Mcneil MD Status:REG [facility] Discharge Instructions Procedure Hernia Diet Discharge Diet: Light diet - advance as tolerated Activity Discharge Activity: May Not Drive (for 2-3 days or while taking narcotic pain meds.) and May Shower (with the bandage in place 1-2 days after surgery.) Lifting Restrictions: 20 pounds for 4 weeks. Additional Activity Instructions:: Climbing stairs is fine, walking is encouraged. Sitting in bed may be uncomfortable. Sitting up using your lateral muscles (sitting up sideways) is usually more comfortable. Do not drive, work heavy equipment of sign legal documents for 24 hours. If your hernia repair was an inguinal repair, you may have scrotal swelling, an ice pack and/or athletic support can provide more comfort. Pain medications may cause nausea, you should typically eat light foods as you take your pain medications. Pain medications may also cause constipation. If you have difficulty with this, discuss with your doctor. Dressing / Incision Call your doctor if your incision/area has: Continuous Slow Oozing, Sudden Increased Bleeding, Increased Pain/ Swelling, Increased Redness and Foul Smelling Discharge Call your doctor if you observe: Fever of 101 or Higher Suture Line Care: Avoid Pulling/Pushing and Avoid Pinching/Bending Remove Dressing in: 2 days (Remove clear bandages in 2 days, remove Steri-Strips in 7 to 10 days.) Cleanse incision/area with: Soap Water Follow Up Care Please Follow Up With: Kishor Tee MD When: Please call to schedule 2 week follow up appointment. [phone] Test Results: Test results from this visit will be discussed in further detail at your follow-up appointment, if applicable. Discharge Plan Admission Attending Provider: Kishor Tee Primary Care Provider: Pb Mcneil Instructions Additional Instructions / Restrictions: Alternate ibuprofen and Tylenol for pain, oxycodone for breakthrough. May resume blood thinners on Sunday Discharge Orders/Prescriptions Prescriptions: New oxycodone 5 mg Tablet 5 - 10 mg PO Q4H PRN PRN (Reason: Pain Score 4-10/10) 5 Days Qty: 10 0RF No Action omeprazole 40 mg capsule,delayed release(DR/EC) 40 mg PO DAILY 90 Days Qty: 90 Patient Comments: quetiapine 25 mg tablet 25 mg PO QHS donepezil 10 mg tablet 10 mg PO DAILY clonazepam 1 mg tablet 1 mg PO QHS memantine 5 mg tablet 5 mg PO BID carbidopa-levodopa 25-100 mg tablet 1.5 tab PO TID doxepin 10 mg capsule 10 mg PO QHS nitroglycerin 0.4 mg tablet, sublingual 0.4 mg sublingual Q5-15M PRN (Reason: chest pain) Rx Instructions: do not exceed 3 doses per episode aspirin 81 mg tablet,chewable 81 mg PO DAILY metoprolol tartrate 25 mg tablet 50 mg PO DAILY Brilinta 90 mg tablet 90 mg PO BID hydroxyzine HCl 50 mg tablet 50 mg PO QHS cholecalciferol (vitamin D3) 50 mcg (2,000 unit) capsule 50 mcg PO DAILY vitamin K2 45 mcg capsule 45 mcg PO DAILY isosorbide mononitrate 30 mg tablet extended release 24 hr 30 mg PO DAILY mirtazapine 15 mg tablet 15 mg PO QHS atorvastatin 80 mg tablet 80 mg PO QHS Qty: 90 3RF Rx Instructions: Patient has been taking atorvastatin, not pravastatin. Other Ambulatory Orders: 12 Lead EKG (Routine) Timeframe: [id number] Location: None Selected Ordered By: Dr. Aakash Graff Referrals / Follow Up: Pb Mcneil MD [Primary Care Provider] - Disposition Disposition (needs filled in before D/C Order can be placed): Home, Self Care 08/20/23 1023 Kishor Tee MD CC: Dr. Pb Mcneil MD Signed Normal [facility] H AND P Exam - Surgicalon H&P Exam - Surgical [facility] Medical Records Department [address] [place] [address] H P Exam - Surgical 08/20/23 0839 MR#: [id number] Acct: [id number] Name: ANGEL MTZ Rep #: [id number] : 1945 77 From: Kishor Tee MD PCP: Dr. Pb Mcneil MD Status:[facility] Location: [place] [address] HPI - General HPI Narrative ANGEL MTZ, is a 77 M who presents after emergency room visit with incarcerated right inguinal hernia. The patient notes that he had a bulging which she was not able to reduce after coughing fit. He went to the emergency room and this was reduced and the patient was feeling better and he reconsidered his hernia repair. He had seen me a few months ago to discuss hernia repair and at that time he was asymptomatic and did not want hernia repair. After this recent trip to the emergency room he would like his inguinal hernia repaired. [facility] Medical History (Updated 08/14/23 @ 15:40 by Chani Delong) Alcohol use Arthritis Atherosclerosis of coronary artery of [place] heart without angina pectoris Bilateral kidney stones BPH (benign prostatic hyperplasia) Cancer Cardiology follow-up encounter Chronic cough Chronic heart failure with preserved ejection fraction (HFpEF) Dementia Depression DVT (deep venous thrombosis) Essential (primary) hypertension GERD (gastroesophageal reflux disease) High cholesterol History of CHF (congestive heart failure) History of echocardiogram History of stress test Hyperlipidemia Injury of head and neck Left nephrolithiasis Left ventricular diastolic dysfunction Leg cramps Loss of consciousness Non-smoker Parkinson's disease Prostate disease PVCs (premature ventricular contractions) Restless legs Right inguinal pain STEMI (ST elevation myocardial infarction) ( 09/02/22) Urethral stricture Walker as ambulation aid Wears dentures Home Medications clonazepam 1 mg tablet 1 mg PO QHS 03/20/22 [History Last Taken Unknown] donepezil 10 mg tablet 10 mg PO DAILY 03/20/22 [History Last Taken Unknown] memantine 5 mg tablet 5 mg PO BID 03/20/22 [History Last Taken Unknown] quetiapine 25 mg tablet 25 mg PO QHS 03/20/22 [History Last Taken Unknown] aspirin 81 mg chewable tablet 81 mg PO DAILY 10/26/22 [History Last Taken Unknown] doxepin 10 mg capsule 10 mg PO QHS 10/26/22 [History Last Taken Unknown] metoprolol tartrate 25 mg tablet 50 mg PO DAILY 10/26/22 [History Last Taken Unknown] nitroglycerin 0.4 mg sublingual tablet 0.4 mg sublingual Q5-15M PRN chest pain 10/26/22 [History Last Taken Unknown] omeprazole 40 mg capsule,delayed release 40 mg PO DAILY REFLUX 90 days #90 caps 10/26/22 [History Last Taken Unknown] carbidopa 25 mg-levodopa 100 mg tablet 1.5 tab PO TID 03/01/23 [History Last Taken Unknown] atorvastatin 80 mg tablet 80 mg PO QHS #90 tabs 05/23/23 [Rx Last Taken Unknown] cholecalciferol (vitamin D3) 50 mcg (2,000 unit) capsule 50 mcg PO DAILY 07/26/23 [History Last Taken Unknown] hydroxyzine HCl 50 mg tablet 50 mg PO QHS 07/26/23 [History Last Taken Unknown] ticagrelor 90 mg tablet (Brilinta) 90 mg PO BID 07/26/23 [History Last Taken 08/14/23] vitamin K2 45 mcg capsule 45 mcg PO DAILY 07/26/23 [History Last Taken Unknown] isosorbide mononitrate 30 mg tablet,extended release 24 hr 30 mg PO DAILY 08/14/23 [History Last Taken Unknown] mirtazapine 15 mg tablet 15 mg PO QHS 08/14/23 [History Last Taken Unknown] Allergy/AdvReac Type Severity Reaction Status Date / Time clopidogrel [From Plavix] Allergy Mild Rash Verified 08/20/23 08:38 lisinopril Allergy Mild Rash Verified 08/20/23 08:38 calcium carbonate Allergy Swelling Verified 08/20/23 08:38 [From Leisa-Randolph] citric acid Allergy Swelling Verified 08/20/23 08:38 [From Leisa-Randolph] niacin Allergy unknown Verified 08/20/23 08:38 [From Niaspan Extended-Release] onabotulinumtoxinA Allergy hives Verified 08/20/23 08:38 [From Botox] potassium bicarbonate Allergy Swelling Verified 08/20/23 08:38 [From Leisa-Randolph] sodium bicarbonate Allergy Swelling Verified 08/20/23 08:38 [From Leisa-Randolph] sulfamethoxazole Allergy Upset Verified 08/20/23 08:38 [From Bactrim] Stomach trimethoprim [From Bactrim] Allergy Upset Verified 08/20/23 08:38 Stomach Family History Brother CAD (coronary artery disease) Diabetes Mother Diabetes Surgical History (Updated 08/14/23 @ 15:40 by Chani Delong) History of cataract surgery History of coronary artery stent placement (09/02/22) History of left heart catheterization (01/09/13) History of left heart catheterization (LHC) ( 09/02/22) History of lumbar fusion S/P cystoscopy with ureteral stent placement (10/2017) Social History Smoking Status: Never smoker alcohol in (more content not included)... Normal [facility] Operative Reporton 3 Operative Report [facility] Medical Records Department [address] [place] [address] Operative Report 08/20/23 1017 MR#: [id number] Acct: [id number] Name: ANGEL MTZ Rep #: [id number] : 1945 77 From: Kishor Tee MD PCP: Dr. Pb Mcneil MD Status:[facility] Location: [place] [address] Report of Operation Date of Procedure: 08/20/23 Pre-Operative Diagnosis: Right inguinal hernia Post-Operative Diagnosis: Right inguinal hernia Surgery/Procedure Performed:: Robotic assisted laparoscopic right inguinal hernia repair with mesh Type of Anesthesia: General/Regional Specimen's removed: None Estimated Blood Loss (mL): 10 Description of Procedure: Patient was brought back to the operating room and general anesthesia was induced. The abdomen was prepped and draped in usual sterile fashion. A midline incision was made superior to the umbilicus and the fascia was grasped and elevated and a Veress needle was placed into the abdomen and a drop test was performed. Next the abdomen was insufflated 15 mmHg and the needle was removed. A port was placed into the abdomen. Camera was placed into the abdomen and it was inspected and there were no injuries from entry. Next under direct visualization an 8 mm port was placed in the right lateral abdominal sidewall as well as the left lateral abdominal sidewall. Patient was placed in Trendelenburg position and the robot was docked. The patient only had a right inguinal hernia. Next using electrocautery scissors an incision was made in the peritoneum in the right lower quadrant. Dissection was carried inferiorly until the hernia sac was identified and dissected free circumferentially. It was reduced. Next a large piece of ProGrip mesh was placed into the right inguinal region and unfolded over the hernia defect. It completely cover the defect with good overlap. Next the peritoneum was reapproximated using a running 3 OV lock suture. There was a small opening in the peritoneum and this was closed with 3-0 Vicryl suture. At the end of the procedure the mesh was completely covered by peritoneum. Next the abdomen was allowed to desufflate and the ports were removed. The incisions were injected with local anesthetic and closed with interrupted 4-0 Monocryl sutures and Steri-Strips and bandages. The scrotum was checked at the end of the case and contain both testicles. Patient was awoken and taken to PACU in stable condition and tolerated the procedure well. Grafts/Implants Used: ProGrip mesh in the right groin Admit VTE Documentation VTE Mechan Device Prophylaxis: SCD's 08/20/23 1019 Cosigner Signature (if applicable): CC: Dr. Kishor Tee MD; Dr. Pb Mcneil MD Signed Normal [facility] 12 Lead EKGon 08-16-2023 12 Lead EKG [facility] [address] [place] [address] 12 Lead EKG 08/16/23 1201 MR#: [id number] Acct: [id number] Name: ANGEL MTZ Rep #: [id number] : 1945 77 From: Jaime Fletcher MD Attending Dr: Dr. Kishor Tee MD Status: DEP [facility] Ordering Dr: Kishor Tee MD Date: 08/16/23 Location: [facility] Sex: M C Admitted: Test Reason : PRE OP Blood Pressure : / mmHG Vent. Rate : 074 BPM Atrial Rate : 058 BPM P-R Int : 200 ms QRS Dur : 098 ms QT Int : 444 ms P-R-T Axes : 056 -19 051 degrees QTc Int : 492 ms Sinus bradycardia with frequent Premature ventricular complexes Septal infarct , age undetermined Abnormal ECG Confirmed by TRISHA BELTRAN, JAIME ([id number]), greeting card editor EDMAR MCNALLY ([id number]) on 08/22/2023 12:17:37 PM Referred By: Kishor Tee Confirmed By:JAIME FLETCHER MD 08/22/23 1217 Date Jaime Fletcher MD CC: Dr. Kishor Tee MD; Dr. Pb Mcneil MD Signed Normal [facility] Absolute lymphocyte countOrd ered By: ED PROVIDER on 08-09-2023 Lymphocytes Auto (Unsp spec) [#/Vol] 1.39 10*3/uL 0.83-4.51 [facility] Amorphous sediment detection in urine sediment by light microscopyOrdered By: Isamar Baker on 08-09-2023 Amorphous sediment LM Ql (Urine sed) 1+ [facility] Basophil percentageOrdered B y: Isamar Baker on 08-09-2023 Basophil percentage 0-5 SEEN /hpf 0-5 [facility] Basophil percentageOrdered B y: ED PROVIDER on 08-09-2023 Basophils/100 WBC (Bld) 0.8 % 0-1 [facility] Bilirubin [Mass/Vol] 0.80 mg/dL 0.20-1.00 [facility] Comment on above: For patients on eltr ombopag therapy, use of Dimension [place] TBIL is not recommended. Chloride [Moles/Vol] 107 mmol/L 98-107 [facility] Eosinophils/100 WBC (Bld) 19.8 % 0-5 [facility] Glucose [Mass/Vol] 125 mg/dL 74-106 [facility] Comment on above: Fasting Glucose resu lt from 100 to 125 mg/dL suggests IMPAIRED HOMEOSTASIS per A.D.A. criteria. Neutrophils (Bld) [#/Vol] 3.0 10*3/uL 2.0-7.7 [facility] Neutrophils/100 WBC (Bld) 49.9 % 47-70 [facility] Potassium [Moles/Vol] 3.2 mmol/L 3.5-5.1 [facility] Protein [Mass/Vol] 6.3 g/dL 6.4-8.2 [facility] Sodium [Moles/Vol] 143 mmol/L 136-145 [facility] WBC (Bld) [#/Vol] 6.1 10*3/uL 4.4-11.0 [facility] Bilirubin Test strip Ql (U)O rdered By: Isamar Baker on 08-09-2023 Bilirubin Ql (U) Negative Negative [facility] Blood erythrocytes count (nu mber/volume)Ordered By: ED PROVIDER on 08-09-2023 RBC (Bld) [#/Vol] 4.74 10*6/uL 4.6-6.2 [facility] Blood hemoglobin measurement (mass/volume)Ordered By: ED PROVIDER on 08-09-2023 Hemoglobin (Bld) [Mass/Vol] 14.8 g/dL 13.0-16.5 [facility] Blood lymphocytes/100 leukoc ytesOrdered By: ED PROVIDER on 08-09-2023 Lymphocytes/100 WBC (Bld) 22.9 % 19-41 [facility] Blood monocytes/100 leukocyt esOrdered By: ED PROVIDER on 08-09-2023 Monocytes/100 WBC (Bld) 6.4 % 0-10 [facility] Blood platelet adequacy dete ction by light microscopyOrdered By: ED PROVIDER on 08-09-2023 Platelets LM Ql (Bld) ADEQUATE ADEQ [facility] Blood platelet mean volumeOr dered By: ED PROVIDER on 08-09-2023 Platelet mean volume (Bld) [Entitic vol] 9.6 fL 6.2-12.0 [facility] CBC W/Diff, Automatedon 11- Anisocytosis Ql (Bld) 1+ Normal [facility] Comment on above: Performed By: #### L 100.0100, L500.4050 #### [facility] [address] [place], [address] MACROCYTOSIS 1+ Normal [facility] Comment on above: Performed By: #### L 100.0100, L500.4050 #### [facility] [address] [place], [address] PLT EST ADEQUATE Normal ADEQ [facility] Comment on above: Performed By: #### L 100.0100, L500.4050 #### [facility] [address] [place], [address] RED CELL MORPH N CHROM Normal NORM C C [facility] Comment on above: Performed By: #### L 100.0100, L500.4050 #### [facility] [address] [place], [address] Comprehensive Metabolic Prof ilon 08-09-2023 Albumin [Mass/Vol] 3.5 g/dL Normal 3.2-5.0 [facility] Comment on above: Performed By: #### L 100.0100, L500.4050 #### [facility] [address] [place], [address] Albumin/Globulin [Mass ratio] 1.2 {ratio} Normal 0.9-2.4 [facility] Comment on above: Performed By: #### L 100.0100, L500.4050 #### [facility] [address] [place], [address] ALK P 70 U/L Normal 45-117 [facility] Comment on above: Performed By: #### L 100.0100, L500.4050 #### [facility] [address] [place], [address] ALT [Catalytic activity/Vol] 16 U/L Normal 16-61 [facility] Comment on above: Performed By: #### L 100.0100, L500.4050 #### [facility] [address] [place], [address] AST [Catalytic activity/Vol] 13 U/L Low 15-37 [facility] Comment on above: Performed By: #### L 100.0100, L500.4050 #### [facility] [address] [place], [address] Bilirubin [Mass/Vol] 0.80 mg/dL Normal 0.20-1.00 [facility] Comment on above: Result Comment: For patients on eltrombopag therapy, use of Dimension [place] TBIL is not recommended. Performed By: #### L 100.0100, L500.4050 #### [facility] [address] [place], [address] BUN/CRE 10.7 RATIO Normal 10-20 [facility] Comment on above: Performed By: #### L 100.0100, L500.4050 #### [facility] [address] [place], [address] CA,Total 9.3 mg/dL Normal 8.5-10.1 [facility] Comment on above: Performed By: #### L 100.0100, L500.4050 #### [facility] [address] [place], [address] Chloride [Moles/Vol] 107 mmol/L Normal 98-107 [facility] Comment on above: Performed By: #### L 100.0100, L500.4050 #### [facility] [address] [place], [address] CO2 [Moles/Vol] 35.0 mmol/L High 21.0-32.0 [facility] Comment on above: Performed By: #### L 100.0100, L500.4050 #### [facility] [address] [place], [address] Creatinine [Mass/Vol] 1.12 mg/dL Normal 0.70-1.30 [facility] Comment on above: Result Comment: The validity of the calculated GFR GFRAA in patients over 70 years has not been determined. Clinical correlation is essential. Performed By: #### L 100.0100, L500.4050 #### [facility] [address] [place], [address] EST GFR - AA 81 mL/min Normal >60 [facility] Comment on above: Result Comment: Afri can [place] GFR Calc Performed By: #### L 100.0100, L500.4050 #### [facility] [address] [place], [address] GAP 1 Low 5-15 [facility] Comment on above: Performed By: #### L 100.0100, L500.4050 #### [facility] [address] [place], [address] GFR/1.73 sq M.predicted among non-blacks MDRD (S/P/Bld) [Vol rate/Area] 67 mL/min/{1.73_m2} Normal >60 [facility] Comment on above: Result Comment: Non- GFR Calc Performed By: #### L 100.0100, L500.4050 #### [facility] [address] [place], [address] Globulin (S) [Mass/Vol] 2.8 g/dL Normal 2.2-4.2 [facility] Comment on above: Performed By: #### L 100.0100, L500.4050 #### [facility] [address] [place], [address] Glucose [Mass/Vol] 125 mg/dL High 74-106 [facility] Comment on above: Result Comment: Fast ing Glucose result from 100 to 125 mg/dL suggests IMPAIRED HOMEOSTASIS per A.D.A. criteria. Performed By: #### L 100.0100, L500.4050 #### [facility] [address] [place], [address] Potassium [Moles/Vol] 3.2 mmol/L Low 3.5-5.1 [facility] Comment on above: Performed By: #### L 100.0100, L500.4050 #### [facility] [address] [place], [address] Sodium [Moles/Vol] 143 mmol/L Normal 136-145 [facility] Comment on above: Performed By: #### L 100.0100, L500.4050 #### [facility] [address] [place], [address] T PROT 6.3 g/dL Low 6.4-8.2 [facility] Comment on above: Performed By: #### L 100.0100, L500.4050 #### [facility] [address] [place], [address] Urea nitrogen [Mass/Vol] 12 mg/dL Normal 7-18 [facility] Comment on above: Performed By: #### L 100.0100, L500.4050 #### [facility] [address] [place], [address] Determination of erythrocyte mean corpuscular volume (MCV)Ordered By: ED PROVIDER on 08-09-2023 MCV (RBC) [Entitic vol] 90.1 fL 80-94 [facility] Emergency Department Summary on 08-09-2023 Emergency Department Summary [facility] Medical Records Department [address] [place] [address] Emergency Department Summary 08/09/23 MR#: [id number] Acct: [id number] Name: ANGEL MTZ Rep #: [id number] : 1945 77 From: Isamar Baker DO PCP: Dr. Pb Mcneil MD Status:DEP ER Location: ED HPI History of Present Illness Chief Complaint: Abd Pain Informant: patient Narrative Narrative: Patient is a 77 year old male with history of right inguinal hernia as well as Parkinson's presenting with worsening right inguinal pain. Is been worsening over the past 3 days. Today he had a coughing fit and was unable to reduce his bulge. He continued to have significant pain especially with ambulation. He came to the ER to be evaluated further. Notes that upon arrival to the ER he actually been feeling better. Currently denies any pain. States bowel movements been normal. His states that he gets a laxative twice a week. Patient denies any constipation or straining. Denies any nausea or vomiting. Denies any other abdominal pain. No fever or chills. No urinary symptoms. No other complaints or concerns at this time. Does see Dr. Tee. Had recently been offered surgery but declined as symptoms not too bad at that time. [facility] Medical History Atherosclerosis of coronary artery of [place] heart without angina pectoris Bilateral kidney stones BPH (benign prostatic hyperplasia) Chronic cough Chronic heart failure with preserved ejection fraction (HFpEF) Depression Essential (primary) hypertension GERD (gastroesophageal reflux disease) Hyperlipidemia Left nephrolithiasis Left ventricular diastolic dysfunction PVCs (premature ventricular contractions) Right inguinal pain STEMI (ST elevation myocardial infarction) ( 09/02/22) Urethral stricture Home Medications clonazepam 1 mg tablet 1 mg PO DAILY 03/20/22 [History Last Taken Unknown] donepezil 10 mg tablet 10 mg PO DAILY 03/20/22 [History Last Taken Unknown] memantine 5 mg tablet 5 mg PO BID 03/20/22 [History Last Taken Unknown] quetiapine 25 mg tablet 25 mg PO DAILY 03/20/22 [History Last Taken Unknown] acetaminophen 325 mg capsule 650 mg PO BID PRN 10/26/22 [History Last Taken Unknown] aspirin 81 mg chewable tablet 81 mg PO DAILY 10/26/22 [History Last Taken Unknown] doxepin 10 mg capsule 10 mg PO DAILY 10/26/22 [History Last Taken Unknown] furosemide 20 mg tablet 20 mg PO DAILY 10/26/22 [History Last Taken Unknown] metoprolol tartrate 25 mg tablet 25 mg PO BID 10/26/22 [History Last Taken Unknown] nitroglycerin 0.4 mg sublingual tablet 0.4 mg sublingual Q5-15M PRN 10/26/22 [History Last Taken Unknown] omeprazole 40 mg capsule,delayed release 40 mg PO DAILY REFLUX 90 days #90 caps 10/26/22 [History Last Taken Unknown] carbidopa 25 mg-levodopa 100 mg tablet 1.5 tab PO TID 03/01/23 [History Last Taken Unknown] atorvastatin 80 mg tablet 80 mg PO QHS #90 tabs 05/23/23 [Rx Last Taken Unknown] cholecalciferol (vitamin D3) 50 mcg (2,000 unit) capsule 50 mcg PO DAILY 07/26/23 [History Last Taken Unknown] hydroxyzine HCl 50 mg tablet 50 mg PO QHS 07/26/23 [History Last Taken Unknown] lisinopril 20 mg tablet 20 mg PO DAILY 07/26/23 [History Last Taken Unknown] ticagrelor 90 mg tablet (Brilinta) 90 mg PO BID 07/26/23 [History Last Taken Unknown] vitamin K2 45 mcg capsule 45 mcg PO DAILY 07/26/23 [History Last Taken Unknown] Allergy/AdvReac Type Severity Reaction Status Date / Time clopidogrel [From Plavix] Allergy Mild Rash Verified 07/26/23 14:00 lisinopril Allergy Mild Rash Verified 07/26/23 14:00 calcium carbonate Allergy Swelling Verified 07/26/23 14:00 [From Leisa-Randolph] citric acid Allergy Swelling Verified 07/26/23 14:00 [From Leisa-Randolph] niacin Allergy unknown Verified 07/26/23 14:00 [From Niaspan Extended-Release] onabotulinumtoxinA Allergy hives Verified 07/26/23 14:00 [From Botox] potassium bicarbonate Allergy Swelling Verified 07/26/23 14:00 [From Leisa-Randolph] sodium bicarbonate Allergy Swelling Verified 07/26/23 14:00 [From Leisa-Randolph] sulfamethoxazole Allergy Upset Verified 07/26/23 14:00 [From Bactrim] Stomach trimethoprim [From Bactrim] Allergy Upset Verified 07/26/23 14:00 Stomach Family History Brother CAD (coronary artery disease) Diabetes Mother Diabetes Surgical History History of cataract surgery History of coronary artery stent placement (09/02/22) History of left heart catheterization (01/09/13) History of left heart catheterization (LHC) ( 09/02/22) S/P cystoscopy with ureteral stent placement (10/2017) Social History Smoking Status: Former smoker (more content not included)... Normal [facility] Hematocrit Auto (Bld) [Volum e fraction]Ordered By: ED PROVIDER on 08-09-2023 Hematocrit (Bld) [Volume fraction] 42.7 % 40-54 [facility] Ketones Test strip Ql (U)Ord ered By: Isamar Baker on 08-09-2023 Ketones Ql (U) Negative Negative [facility] - Chemistry and C hemistry - challengeOrdered By: ED PROVIDER on 08-09-2023 ALP [Catalytic activity/Vol] 70 U/L 45-117 [facility] ALT [Catalytic activity/Vol] 16 U/L 16-61 [facility] CO2 [Moles/Vol] 35.0 mmol/L 21.0-32.0 [facility] Globulin (S) [Mass/Vol] 2.8 g/dL 2.2-4.2 [facility] Urea nitrogen/Creatinine [Mass ratio] 10.7 mg/mg 10-20 [facility] - Hematology and Cell countsOrdered By: ED PROVIDER on 08-09-2023 Anisocytosis Ql (Bld) 1+ [facility] Erythrocyte distribution width (RBC) [Entitic vol] 44.2 fL 35.1-43.9 [facility] Erythrocyte distribution width (RBC) [Ratio] 13.5 % 11.6-14.6 [facility] Immature granulocytes/100 WBC (Bld) 0.200 % 0.0-0.9 [facility] Comment on above: IG% - Immature Granu locytes (promyelocytes, myelocytes and metamyelocytes) > 1% indicates that a LEFT SHIFT is Present. MCH (RBC) [Entitic mass] 31.2 pg 27.0-32.0 [facility] Nucleated RBC/100 WBC (Bld) [Ratio] 0 % 0-5 [facility] MCHC Auto (RBC) [Mass/Vol]Or dered By: ED PROVIDER on 08-09-2023 MCHC (RBC) [Mass/Vol] 34.7 g/dL 32-36 [facility] Macrocytes detectionOrdered By: ED PROVIDER on 08-09-2023 Macrocytes Ql (Bld) 1+ [facility] Mucus LM Ql (Urine sed)Order ed By: Isamar Baker on 08-09-2023 Mucus Ql (Urine sed) 0 SEEN /hpf [facility] Nitrite Test strip Ql (U)Ord ered By: Isamar Baker on 08-09-2023 Nitrite Ql (U) Negative Negative [facility] No Panel InformationOrdered By: ED PROVIDER on 08-09-2023 Estimated GFR (MDRD) Amer 81 mL/min >60 [facility] Comment on above: GFR Calc Estimated GFR (MDRD) Non-Af Amer 67 mL/min >60 [facility] Comment on above: Non- GFR Calc Platelets bldOrdered By: ED PROVIDER on 08-09-2023 Platelets (Bld) [#/Vol] 207 10*3/uL 150-450 [facility] Protein Test strip Ql (U)Ord ered By: Isamar Baker on 08-09-2023 Protein Ql (U) 30 mg/dl Negative [facility] RBC morphologyOrdered By: ED PROVIDER on 08-09-2023 RBC morphology finding Nom (Bld) N CHROM NORMAL NORM C&C [facility] Serum or plasma albumin santa urement (mass/volume)Ordered By: ED PROVIDER on 08-09-2023 Albumin [Mass/Vol] 3.5 g/dL 3.2-5.0 [facility] Serum or plasma albumin/glob ulin mass ratioOrdered By: ED PROVIDER on 08-09-2023 Albumin/Globulin [Mass ratio] 1.2 {ratio} 0.9-2.4 [facility] Serum or plasma calcium santa urement (mass/volume)Ordered By: ED PROVIDER on 08-09-2023 Calcium [Mass/Vol] 9.3 mg/dL 8.5-10.1 [facility] Serum or plasma creatinine m easurement (mass/volume)Ordered By: ED PROVIDER on 08-09-2023 Creatinine [Mass/Vol] 1.12 mg/dL 0.70-1.30 [facility] Comment on above: The validity of the calculated GFR & GFRAA in patients over 70 years has not been determined. Clinical correlation is essential. Serum or plasma urea nitroge n measurement (mass/volume)Ordered By: ED PROVIDER on 08-09-2023 Urea nitrogen [Mass/Vol] 12 mg/dL 7-18 [facility] Squamous epithelial cells de tection in urine sediment by light microscopyOrdered By: Isamar Baker on 08-09-2023 Epithelial cells.squamous LM Ql (Urine sed) 0-5 SEEN /hpf 0-5 [facility] Thin prep Papanicolaou smear with manual screeningOrdered By: ED PROVIDER on 08-09-2023 Thin prep Papanicolaou smear with manual screening 13 U/L 15-37 [facility] Thin prep Papanicolaou smear with manual screening 1 5-15 [facility] Urinalysis, Completeon 08-09 AMORPHOUS 1+ Normal [facility] Comment on above: Order Comment: BOBBY CTOR TO SPECIFY Performed By: #### L 400.0001 #### [facility] [address] [place], [place], [id number] BACTERIA 1+ /hpf Normal None Seen [facility] Comment on above: Order Comment: BOBBY CTOR TO SPECIFY Performed By: #### L 400.0001 #### [facility] [address] [place], [place], [id number] EPI,SQUAMOUS 0-5 SEEN Normal 0-5 [facility] Comment on above: Order Comment: BOBBY CTOR TO SPECIFY Performed By: #### L 400.0001 #### [facility] [address] [place], [address] WBC 0-5 SEEN Normal 0-5 [facility] Comment on above: Order Comment: BOBBY CTOR TO SPECIFY Performed By: #### L 400.0001 #### [facility] [address] [place], [address] Mucus Ql (Urine sed) 0 SEEN Normal [facility] Comment on above: Order Comment: BOBBY CTOR TO SPECIFY Performed By: #### L 400.0001 #### [facility] [address] [place], [address] RBC 0 SEEN Normal 0-5 [facility] Comment on above: Order Comment: BOBBY CTOR TO SPECIFY Performed By: #### L 400.0001 #### [facility] [address] [place], [place], [id number] Urine blood detectionOrdered By: Isamar Baker on 08-09-2023 RBC Ql (U) 10 /ul Negative [facility] RBC Ql (U) 0 SEEN /hpf 0-5 [facility] Urine clarityOrdered By: Clotilde Baker on 08-09-2023 Clarity (U) Sl. Cloudy Clear [facility] Urine color determinationOrd ered By: Isamar Baker on 08-09-2023 Color (U) Yellow Yellow [facility] Urine glucose detectionOrder ed By: Isamar Baker on 08-09-2023 Glucose Ql (U) Normal mg/dl Normal [facility] Urine leukocyte esterase det ection by dipstickOrdered By: Isamar Baker on 08-09-2023 Leukocyte esterase Test strip Ql (U) 25 /ul Negative [facility] Urine pHOrdered By: Isamar eduardo on 08-09-2023 pH (U) 7.0 [pH] 5.0 - 8.0 [facility] Urine sediment bacteria coun t by microscopy (number/high power field)Ordered By: Isamar Baker on 08-09-2023 Bacteria LM.HPF (Urine sed) [#/Area] 1 /[HPF] None Seen [facility] Urine specific gravity measu rementOrdered By: Isamar Baker on 08-09-2023 Specific gravity (U) [Rel density] 1.010 1.002-1.030 [facility] Urobilinogen Auto test strip Ql (U)Ordered By: Isamar Baker on 08-09-2023 Urobilinogen Ql (U) Normal mg/dl Normal [facility] Surgery Visit Reporton 07-26 Surgery Visit Report [facility] [address] [place] [address] OFFICE VISIT Date of Service: 07/26/23 MR#: [id number] Acct: [id number] Name: ANGEL MTZ Rep #: [id number] : 1945 Provider: Dr. Kishor lopes MD Age/Sex: 77/M Location: [facility] Status: Signed Intake Vital Signs 03/01/23 10:05 07/26/23 13:59 Height 5 ft 5 in 5 ft 5 in Weight: 126 lb BMI 20.9 BP 122/50 H Blood Pressure Location Rt brachial Position Sitting Respiration 17 Pulse 60 Pulse Source Palpation Temp 97 F L Temp Source Temporal Pulse Oximetry (%) 99 Oxygen Delivery Method room air Intake Visit Reasons: Hernia Chief Complaint: Right Inguinal Hernia Allergies clopidogrel [From Plavix] Allergy (Mild, Verified 07/26/23 14:00) Rash lisinopril Allergy (Mild, Verified 07/26/23 14:00) Rash calcium carbonate [From Leisa-Randolph] Allergy (Verified 07/26/23 14:00) Swelling citric acid [From Leisa-Randolph] Allergy (Verified 07/26/23 14:00) Swelling niacin [From Niaspan Extended-Release] Allergy (Verified 07/26/23 14:00) unknown onabotulinumtoxinA [From Botox] Allergy (Verified 07/26/23 14:00) hives potassium bicarbonate [From Leisa-Randolph] Allergy (Verified 07/26/23 14:00) Swelling sodium bicarbonate [From Leisa-Randolph] Allergy (Verified 07/26/23 14:00) Swelling sulfamethoxazole [From Bactrim] Allergy (Verified 07/26/23 14:00) Upset Stomach trimethoprim [From Bactrim] Allergy (Verified 07/26/23 14:00) Upset Stomach Medications clonazepam 1 mg tablet 1 mg PO DAILY 03/20/22 [History Confirmed 07/26/23] donepezil 10 mg tablet 10 mg PO DAILY 03/20/22 [History Confirmed 07/26/23] memantine 5 mg tablet 5 mg PO BID 03/20/22 [History Confirmed 07/26/23] quetiapine 25 mg tablet 25 mg PO DAILY 03/20/22 [History Confirmed 07/26/23] acetaminophen 325 mg capsule 650 mg PO BID PRN 10/26/22 [History Confirmed 07/26/23] aspirin 81 mg chewable tablet 81 mg PO DAILY 10/26/22 [History Confirmed 07/26/23] doxepin 10 mg capsule 10 mg PO DAILY 10/26/22 [History Confirmed 07/26/23] furosemide 20 mg tablet 20 mg PO DAILY 10/26/22 [History Confirmed 07/26/23] metoprolol tartrate 25 mg tablet 25 mg PO BID 10/26/22 [History Confirmed 07/26/23] nitroglycerin 0.4 mg sublingual tablet 0.4 mg sublingual Q5-15M PRN 10/26/22 [History Confirmed 07/26/23] omeprazole 40 mg capsule,delayed release 40 mg PO DAILY REFLUX 90 days #90 caps 10/26/22 [History Confirmed 07/26/23] carbidopa 25 mg-levodopa 100 mg tablet 1.5 tab PO TID 03/01/23 [History Confirmed 07/26/23] atorvastatin 80 mg tablet 80 mg PO QHS #90 tabs 05/23/23 [Rx] cholecalciferol (vitamin D3) 50 mcg (2,000 unit) capsule 50 mcg PO DAILY 07/26/23 [History Confirmed 07/26/23] hydroxyzine HCl 50 mg tablet 50 mg PO QHS 07/26/23 [History Confirmed 07/26/23] lisinopril 20 mg tablet 20 mg PO DAILY 07/26/23 [History Confirmed 07/26/23] ticagrelor 90 mg tablet (Brilinta) 90 mg PO BID 07/26/23 [History Confirmed 07/26/23] vitamin K2 45 mcg capsule 45 mcg PO DAILY 07/26/23 [History Confirmed 07/26/23] [facility] Medical History (Updated 07/26/23 @ 16:[address] Kishor Tee MD) Atherosclerosis of coronary artery of [place] heart without angina pectoris Bilateral kidney stones BPH (benign prostatic hyperplasia) Chronic cough Chronic heart failure with preserved ejection fraction (HFpEF) Depression Essential (primary) hypertension GERD (gastroesophageal reflux disease) Hyperlipidemia Left nephrolithiasis Left ventricular diastolic dysfunction PVCs (premature ventricular contractions) Right inguinal pain STEMI (ST elevation myocardial infarction) ( 09/02/22) Urethral stricture Surgical History History of cataract surgery History of coronary artery stent placement (09/02/22) History of left heart catheterization (01/09/13) History of left heart catheterization (LHC) ( 09/02/22) S/P cystoscopy with ureteral stent placement (10/2017) Family History Brother CAD (coronary artery disease) Diabetes Mother Diabetes Social History Smoking Status: Former smoker alcohol intake: former substance use type: does not use caffeine: No what type of physical activity do you participate in: walking frequency: 3-4 times per week duration: 15-30 minutes/day seatbelt use: always do you feel safe at home: Yes HPI HPI HPI: Patient is a 77-year-old male here with right inguinal hernia. The patient reports he was feeling a bulge and went to his doctor who reduce the bulge. He has not had any discomfort or bulging since then. He denies any nausea or vomiting. He is not having any abdominal or groin pain at this time. ROS General Gener (more content not included)... Normal [facility] Basophil percentageOrdered B y: Rosendo Romero on 06-07-2023 Bilirubin [Mass/Vol] 0.70 mg/dL 0.20-1.00 [facility] Comment on above: For patients on eltr ombopag therapy, use of Dimension [place] TBIL is not recommended. Chloride [Moles/Vol] 110 mmol/L 98-107 [facility] Cholesterol [Mass/Vol] 183 mg/dL <200 [facility] Comment on above: <200 mg/dL Desirable 200-240 mg/dL Borderline >240 mg/dL High Risk Glucose [Mass/Vol] 94 mg/dL 74-106 [facility] Potassium [Moles/Vol] 3.8 mmol/L 3.5-5.1 [facility] Protein [Mass/Vol] 6.2 g/dL 6.4-8.2 [facility] Sodium [Moles/Vol] 142 mmol/L 136-145 [facility] Triglyceride [Mass/Vol] 77 mg/dL <199 [facility] Comment on above: The drugs N-Acetylcy steine and Metamizole may falsely depress this assay.Serum Triglycerides Reference Interval Normal <150 mg/dL Borderline high 150 - 199 mg/dL High 200 - 499 mg/dL Very High > or = 500 mg/dL Bilirubin, Directon 06-07-20 23 Bilirubin.direct [Mass/Vol] 0.19 mg/dL Normal 0.00-0.30 [facility] Comment on above: Order Comment: ORDER ED BY PB GUEVARA LIPID LIVER BY ROOFORDERED BY PB GUEVARA LIPID LIVER BY ROOF Performed By: #### L 500.4050, L501.4700, L500.4100 ####[facility] [id number] [place], [place], [id number] Comprehensive Metabolic Prof [facility] 06-07-2023 Albumin [Mass/Vol] 3.6 g/dL Normal 3.2-5.0 [facility] Comment on above: Order Comment: ORDER ED BY PB GUEVARA LIPID LIVER BY ROOF ORDERED BY PB GUEVARA LIPID LIVER BY ROOF Performed By: #### L 500.4050, L501.4700, L500.4100 #### [facility] [address] [place], [place], [address] Albumin/Globulin [Mass ratio] 1.4 {ratio} Normal 0.9-2.4 [facility] Comment on above: Order Comment: ORDER ED BY PB GUEVARA LIPID LIVER BY ROOF ORDERED BY PB GUEVARA LIPID LIVER BY ROOF Performed By: #### L 500.4050, L501.4700, L500.4100 #### [facility] [address] [place], [address] ALK P 62 U/L Normal 45-117 [facility] Comment on above: Order Comment: ORDER ED BY PB MCNEIL SHARE LIPID LIVER BY ROOF ORDERED BY PB MCNEIL SHARE LIPID LIVER BY ROOF Performed By: #### L 500.4050, L501.4700, L500.4100 #### [facility] [address] [place], [address] ALT [Catalytic activity/Vol] 7 U/L Low 16-61 [facility] Comment on above: Order Comment: ORDER ED BY PB MCNEIL SHARE LIPID LIVER BY ROOF ORDERED BY PB MCNEIL SHARE LIPID LIVER BY ROOF Performed By: #### L 500.4050, L501.4700, L500.4100 #### [facility] [address] [place], [address] AST [Catalytic activity/Vol] 16 U/L Normal 15-37 [facility] Comment on above: Order Comment: ORDER ED BY PB MCNEIL SHARE LIPID LIVER BY ROOF ORDERED BY PB MCNEIL SHARE LIPID LIVER BY ROOF Performed By: #### L 500.4050, L501.4700, L500.4100 #### [facility] [address] [place], [address] Bilirubin [Mass/Vol] 0.70 mg/dL Normal 0.20-1.00 [facility] Comment on above: Order Comment: ORDER ED BY PB MCNEIL SHARE LIPID LIVER BY ROOF ORDERED BY PB MCNEIL SHARE LIPID LIVER BY ROOF Result Comment: For patients on eltrombopag therapy, use of Dimension [place] TBIL is not recommended. Performed By: #### L 500.4050, L501.4700, L500.4100 #### [facility] [address] [place], [address] BUN/CRE 13.2 RATIO Normal 10-20 [facility] Comment on above: Order Comment: ORDER ED BY PB MCNEIL SHARE LIPID LIVER BY ROOF ORDERED BY PB MCNEIL SHARE LIPID LIVER BY ROOF Performed By: #### L 500.4050, L501.4700, L500.4100 #### [facility] [address] [place], [address] CA,Total 8.9 mg/dL Normal 8.5-10.1 [facility] Comment on above: Order Comment: ORDER ED BY PB MCNEIL SHARE LIPID LIVER BY ROOF ORDERED BY PB MCNEIL SHARE LIPID LIVER BY ROOF Performed By: #### L 500.4050, L501.4700, L500.4100 #### [facility] [address] [place], [address] Chloride [Moles/Vol] 110 mmol/L High 98-107 [facility] Comment on above: Order Comment: ORDER ED BY PB MCNEIL SHARE LIPID LIVER BY ROOF ORDERED BY PB MCNEIL SHARE LIPID LIVER BY ROOF Performed By: #### L 500.4050, L501.4700, L500.4100 #### [facility] [address] [place], [address] CO2 [Moles/Vol] 28.0 mmol/L Normal 21.0-32.0 [facility] Comment on above: Order Comment: ORDER ED BY PB MCNEIL SHARE LIPID LIVER BY ROOF ORDERED BY PB MCNEIL SHARE LIPID LIVER BY ROOF Performed By: #### L 500.4050, L501.4700, L500.4100 #### [facility] [address] [place], [address] Creatinine [Mass/Vol] 0.98 mg/dL Normal 0.70-1.30 [facility] Comment on above: Order Comment: ORDER ED BY PB MCNEIL SHARE LIPID LIVER BY ROOF ORDERED BY PB MCNEIL SHARE LIPID LIVER BY ROOF Result Comment: The validity of the calculated GFR GFRAA in patients over 70 years has not been determined. Clinical correlation is essential. Performed By: #### L 500.4050, L501.4700, L500.4100 #### [facility] [address] [place], [address] EST GFR - AA 94 mL/min Normal >60 [facility] Comment on above: Order Comment: ORDER ED BY PB MCNEIL SHARE LIPID LIVER BY ROOF ORDERED BY PB MCNEIL SHARE LIPID LIVER BY ROOF Result Comment: Afri can [place] GFR Calc Performed By: #### L 500.4050, L501.4700, L500.4100 #### [facility] [address] [place], [address] GAP 4 Low 5-15 [facility] Comment on above: Order Comment: ORDER ED BY PB MCNEIL SHARE LIPID LIVER BY ROOF ORDERED BY PB MCNEIL SHARE LIPID LIVER BY ROOF Performed By: #### L 500.4050, L501.4700, L500.4100 #### [facility] [address] [place], [address] GFR/1.73 sq M.predicted among non-blacks MDRD (S/P/Bld) [Vol rate/Area] 78 mL/min/{1.73_m2} Normal >60 [facility] Comment on above: Order Comment: ORDER ED BY PB MCNEIL SHARE LIPID LIVER BY ROOF ORDERED BY PB MCNEIL SHARE LIPID LIVER BY ROOF Result Comment: Non- GFR Calc Performed By: #### L 500.4050, L501.4700, L500.4100 #### [facility] [address] [place], [address] Globulin (S) [Mass/Vol] 2.6 g/dL Normal 2.2-4.2 [facility] Comment on above: Order Comment: ORDER ED BY PB MCNEIL SHARE LIPID LIVER BY ROOF ORDERED BY PB MCNEIL SHARE LIPID LIVER BY ROOF Performed By: #### L 500.4050, L501.4700, L500.4100 #### [facility] [address] [place], [address] Glucose [Mass/Vol] 94 mg/dL Normal 74-106 [facility] Comment on above: Order Comment: ORDER ED BY PB MCNEIL SHARE LIPID LIVER BY ROOF ORDERED BY PB MCNEIL SHARE LIPID LIVER BY ROOF Performed By: #### L 500.4050, L501.4700, L500.4100 #### [facility] [address] [place], [address] Potassium [Moles/Vol] 3.8 mmol/L Normal 3.5-5.1 [facility] Comment on above: Order Comment: ORDER ED BY PB MCNEIL SHARE LIPID LIVER BY ROOF ORDERED BY PB MCNEIL SHARE LIPID LIVER BY ROOF Performed By: #### L 500.4050, L501.4700, L500.4100 #### [facility] [address] [place], [address] Sodium [Moles/Vol] 142 mmol/L Normal 136-145 [facility] Comment on above: Order Comment: ORDER ED BY PB MCNEIL SHARE LIPID LIVER BY ROOF ORDERED BY PB MCNEIL SHARE LIPID LIVER BY ROOF Performed By: #### L 500.4050, L501.4700, L500.4100 #### [facility] [address] [place], [address] T PROT 6.2 g/dL Low 6.4-8.2 [facility] Comment on above: Order Comment: ORDER ED BY PB MCNEIL SHARE LIPID LIVER BY ROOF ORDERED BY PB MCNEIL SHARE LIPID LIVER BY ROOF Performed By: #### L 500.4050, L501.4700, L500.4100 #### [facility] [address] [place], [address] Urea nitrogen [Mass/Vol] 13 mg/dL Normal 7-18 [facility] Comment on above: Order Comment: ORDER ED BY PB MCNEIL SHARE LIPID LIVER BY ROOF ORDERED BY PB MCNEIL SHARE LIPID LIVER BY ROOF Performed By: #### L 500.4050, L501.4700, L500.4100 #### [facility] [address] [place], [address] Direct bilirubinOrdered By: Rosendo Romero on 06-07-2023 Bilirubin.direct [Mass/Vol] 0.19 mg/dL 0.00-0.30 [facility] - Chemistry and C hemistry - challengeOrdered By: Rosendo Romero on 06-07-2023 ALP [Catalytic activity/Vol] 62 U/L 45-117 [facility] ALT [Catalytic activity/Vol] 7 U/L 16-61 [facility] CO2 [Moles/Vol] 28.0 mmol/L 21.0-32.0 [facility] Globulin (S) [Mass/Vol] 2.6 g/dL 2.2-4.2 [facility] Urea nitrogen/Creatinine [Mass ratio] 13.2 mg/mg 10-20 [facility] Lipid Profileon 06-07-2023 Cholesterol [Mass/Vol] 183 mg/dL Normal 200 [facility] Comment on above: Order Comment: ORDER ED BY PB GUEVARA LIPID LIVER BY ROHAN ORDERED BY PB GUEVARA LIPID LIVER BY ROHAN Result Comment: <200 mg/dL Desirable 200-240 mg/dL Borderline >240 mg/dL High Risk Performed By: #### L 500.4050, L501.4700, L500.4100 #### [facility] [address] [place], [address] Cholesterol in HDL [Mass/Vol] 43 mg/dL Normal [facility] Comment on above: Order Comment: ORDER ED BY PB GUEVARA LIPID LIVER BY ROHAN ORDERED BY PB GUEVARA LIPID LIVER BY ROHAN Result Comment: The drugs N-Acetylcysteine and Metamizole may falsely depress this assay. Reference Range HDL <40 mg/dL Low HDL Cholesterol HDL >or= 60 mg/dL High HDL Cholesterol Performed By: #### L 500.4050, L501.4700, L500.4100 #### [facility] [address] [place], [address] Cholesterol in LDL [Mass/Vol] 125 mg/dL Normal 0-130 [facility] Comment on above: Order Comment: ORDER ED BY PB GUEVARA LIPID LIVER BY ROOF ORDERED BY PB GUEVARA LIPID LIVER BY ROHAN Performed By: #### L 500.4050, L501.4700, L500.4100 #### [facility] [address] [place], [place], [address] Cholesterol in VLDL [Mass/Vol] 15 mg/dL Normal 5-40 [facility] Comment on above: Order Comment: ORDER ED BY PB GUEVARA LIPID LIVER BY ROHAN ORDERED BY PB GUEVARA LIPID LIVER BY ROHAN Performed By: #### L 500.4050, L501.4700, L500.4100 #### [facility] [address] [place], [address] Triglyceride [Mass/Vol] 77 mg/dL Normal [facility] Comment on above: Order Comment: ORDER ED BY PB GUEVARA LIPID LIVER BY ROHAN ORDERED BY PB GUEVARA LIPID LIVER BY ROHAN Result Comment: The drugs N-Acetylcysteine and Metamizole may falsely depress this assay. Serum Triglycerides Reference Interval Normal <150 mg/dL Borderline high 150 - 199 mg/dL High 200 - 499 mg/dL Very High > or = 500 mg/dL Performed By: #### L 500.4050, L501.4700, L500.4100 #### [facility] [address] [place], [place], [id number] No Panel InformationOrdered By: Rosendo Romero on 06-07-2023 Estimated GFR (MDRD) Amer 94 mL/min >60 [facility] Comment on above: GFR Calc Estimated GFR (MDRD) Non-Af Amer 78 mL/min >60 [facility] Comment on above: Non- GFR Calc Serum or plasma albumin santa urement (mass/volume)Ordered By: Rosendo Romero on 06-07-2023 Albumin [Mass/Vol] 3.6 g/dL 3.2-5.0 [facility] Serum or plasma albumin/glob ulin mass ratioOrdered By: Rosendo Romero on 06-07-2023 Albumin/Globulin [Mass ratio] 1.4 {ratio} 0.9-2.4 [facility] Serum or plasma calcium santa urement (mass/volume)Ordered By: Rosendo Romero on 06-07-2023 Calcium [Mass/Vol] 8.9 mg/dL 8.5-10.1 [facility] Serum or plasma cholesterol in HDL measurement (mass/volume)Ordered By: Rosendo Romero on 06-07-2023 Cholesterol in HDL [Mass/Vol] 43 mg/dL >40 [facility] Comment on above: The drugs N-Acetylcy steine and Metamizole may falsely depress this assay. Reference Range HDL <40 mg/dL Low HDL Cholesterol HDL >or= 60 mg/dL High HDL Cholesterol Serum or plasma cholesterol in VLDL measurement (mass/volume)Ordered By: Rosendo Romero on 06-07-2023 Cholesterol in VLDL [Mass/Vol] 15 mg/dL 5-40 [facility] Serum or plasma creatinine m easurement (mass/volume)Ordered By: Rosendo Romero on 06-07-2023 Creatinine [Mass/Vol] 0.98 mg/dL 0.70-1.30 [facility] Comment on above: The validity of the calculated GFR & GFRAA in patients over 70 years has not been determined. Clinical correlation is essential. Serum or plasma low density lipoprotein (LDL) cholesterol measurement (mass/volume)Ordered By: Rosendo Romero on 06-07-2023 Cholesterol in LDL [Mass/Vol] 125 mg/dL 0-130 [facility] Serum or plasma urea nitroge n measurement (mass/volume)Ordered By: Rosendo Romero on 06-07-2023 Urea nitrogen [Mass/Vol] 13 mg/dL 7-18 [facility] Thin prep Papanicolaou smear with manual screeningOrdered By: Rosendo Romero on 06-07-2023 Thin prep Papanicolaou smear with manual screening 16 U/L 15-37 [facility] Thin prep Papanicolaou smear with manual screening 4 5-15 [facility] Basic metabolic 2000 panelon 09-04-2022 Anion gap [Moles/Vol] 4.0 mmol/L Normal <=15.0 [facility] Comment on above: Performed By: #### 2 4321-2 #### [facility] [address] [place] [address] [employer] Cecily ZHANG [id number] Calcium [Mass/Vol] 9.0 mg/dL Normal 8.5-10.1 [facility] Comment on above: Performed By: #### 2 4321-2 #### [facility] [address] [place] [address] [employer] Cecily MCMILLANIA [id number] Chloride [Moles/Vol] 110 mmol/L High 98-107 [facility] Comment on above: Performed By: #### 2 4321-2 #### [facility] [address] [place] [address] [employer] - Cecily MCMILLANIA [id number] CO2 [Moles/Vol] 27 mmol/L Normal 21-32 [facility] Comment on above: Performed By: #### 2 4321-2 #### [facility] [address] [place] [address] [employer] - Cecily MCMILLANIA [id number] Creatinine [Mass/Vol] 0.84 mg/dL Normal 0.67-1.17 [facility] Comment on above: Performed By: #### 2 4321-2 #### [facility] [address] [place] [address] [employer] - Cecily ZHANG [id number] GFR/1.73 sq M.predicted MDRD (S/P/Bld) [Vol rate/Area] mL/min/{1.73_m2} Normal >=59 [facility] Comment on above: Performed By: #### 2 4321-2 #### [facility] [address] [place] [address] [employer] Cecily ZHANG [id number] Glucose [Mass/Vol] 106 mg/dL Normal 74-106 [facility] Comment on above: Performed By: #### 2 4321-2 #### [facility] [address] [place] [address] [employer] - Cecily ZHANG [id number] HGFR GLOMERULAR FILTRATION RATE INTERPRETATION~The eGFR is calculated using the MDRD equation.~This equation has been validated in patients with chronic kidney disease;~however, it underestimates the GFR in healthy patients with GFR's over 60 mL/min.~The equation is not valid in children under the age of 18.~NOTE: Criteria for Chronic Kidney Disease:~ ~1. Kidney damage for at least three months, as defined~by structural or functional abnormalities of the kidney,~with or without decreased glomerular filtration rate, manifested by either:~* Pathological abnormalities or~* Markers of Kidney damage, including abnormalities in~the composition of the blood or urine or abnormalities in imaging tests.~ ~2. GFR <60 mL/min/1.73 m squared for at least three months, with or without kidney damage.~ Normal [facility] Comment on above: Performed By: #### 2 4321-2 #### [facility] [address] [place] [address] [employer] - Cecily MCMILLANIA [id number] Potassium [Moles/Vol] 4.0 mmol/L Normal 3.5-5.1 [facility] Comment on above: Performed By: #### 2 4321-2 #### [facility] [address] [place] [address] [employer] Cecily Giang CLIA [id number] Sodium [Moles/Vol] 141 mmol/L Normal 136-145 [facility] Comment on above: Performed By: #### 2 4321-2 #### [facility] [address] [place] [address] [employer] - Cecily MCMILLANIA [id number] Urea nitrogen [Mass/Vol] 17 mg/dL Normal 9-20 [facility] Comment on above: Performed By: #### 2 4321-2 #### [facility] [address] [place] [address] [employer] - Cecily MCMILLANIA [id number] Basic metabolic 2000 panelon 09-03-2022 Anion gap [Moles/Vol] 6.0 mmol/L Normal <=15.0 [facility] Comment on above: Performed By: #### 2 4321-2 #### [facility] [address] [place] [address] [employer] - Cecily MCMILLANIA [id number] Calcium [Mass/Vol] 8.6 mg/dL Normal 8.5-10.1 [facility] Comment on above: Performed By: #### 2 4321-2 #### [facility] [address] [place] [address] [employer] - Cecily MCMILLANIA [id number] Chloride [Moles/Vol] 112 mmol/L High 98-107 [facility] Comment on above: Performed By: #### 2 4321-2 #### [facility] [address] [place] [address] [employer] - Cecily MCMILLANIA [id number] CO2 [Moles/Vol] 25 mmol/L Normal 21-32 [facility] Comment on above: Performed By: #### 2 4321-2 #### [facility] [address] [place] [address] [employer] - Cecily ZHANG [id number] Creatinine [Mass/Vol] 0.88 mg/dL Normal 0.67-1.17 [facility] Comment on above: Performed By: #### 2 4321-2 #### [facility] [address] [place] [address] [employer] - Cecily ZHANG [id number] GFR/1.73 sq M.predicted MDRD (S/P/Bld) [Vol rate/Area] mL/min/{1.73_m2} Normal >=59 [facility] Comment on above: Performed By: #### 2 4321-2 #### [facility] [address] [place] [address] [employer] - Cecily ZHANG [id number] Glucose [Mass/Vol] 90 mg/dL Normal 74-106 [facility] Comment on above: Performed By: #### 2 4321-2 #### [facility] [address] [place] [address] [employer] - Cecily ZHANG [id number] HGFR GLOMERULAR FILTRATION RATE INTERPRETATION~The eGFR is calculated using the MDRD equation.~This equation has been validated in patients with chronic kidney disease;~however, it underestimates the GFR in healthy patients with GFR's over 60 mL/min.~The equation is not valid in children under the age of 18.~NOTE: Criteria for Chronic Kidney Disease:~ ~1. Kidney damage for at least three months, as defined~by structural or functional abnormalities of the kidney,~with or without decreased glomerular filtration rate, manifested by either:~* Pathological abnormalities or~* Markers of Kidney damage, including abnormalities in~the composition of the blood or urine or abnormalities in imaging tests.~ ~2. GFR <60 mL/min/1.73 m squared for at least three months, with or without kidney damage.~ Normal [facility] Comment on above: Performed By: #### 2 4321-2 #### [facility] [address] [place] [address] [employer] Cecilynasrin MCMILLANIA [id number] Potassium [Moles/Vol] 4.4 mmol/L Normal 3.5-5.1 [facility] Comment on above: Performed By: #### 2 4321-2 #### [facility] [address] [place] [address] [employer] Cecilynasrin Giang CLIA [id number] Sodium [Moles/Vol] 143 mmol/L Normal 136-145 [facility] Comment on above: Performed By: #### 2 4321-2 #### [facility] [address] [place] [address] [employer] Cecilynasrin MCMILLANIA [id number] Urea nitrogen [Mass/Vol] 15 mg/dL Normal 9-20 [facility] Comment on above: Performed By: #### 2 4321-2 #### [facility] [address] [place] [address] [employer] Cecily Giang CLIA [id number] Hemoglobin and Hematocrit pa bony (Bld)on 09-03-2022 Hematocrit (Bld) [Volume fraction] 45.8 % Normal 40.0-54.0 [facility] Comment on above: Performed By: #### 2 6515-7, 46303-7 #### [facility] [address] [place] [address] [employer] Cecilynasrin MCMILLANIA [id number] Hemoglobin (Bld) [Mass/Vol] 16.1 g/dL Normal 14.0-18.0 [facility] Comment on above: Performed By: #### 2 6515-7, 43885-6 #### [facility] [address] [place] [address] [employer] Cecily MCMILLANIA [id number] Lipid panel with direct LDLo n 09-03-2022 Cholesterol [Mass/Vol] 169 mg/dL Normal <=200 [facility] Comment on above: Performed By: #### 5 7698-3 #### [facility] [address] [place] [address] [employer] Cecily Giang CLIA [id number] Cholesterol in HDL [Mass/Vol] 31 mg/dL Low 40-59 [facility] Comment on above: Performed By: #### 5 7698-3 #### [facility] [address] [place] [address] [employer] Cecily MCMILLANIA [id number] Cholesterol in LDL [Mass/Vol] 113 mg/dL High 5-100 [facility] Comment on above: Performed By: #### 5 7698-3 #### [facility] [address] [place] [address] [employer] Cecily Giang CLIA [id number] CHOLESTEROL/HDL 5.5 Normal [facility] Comment on above: Performed By: #### 5 7698-3 #### [facility] [address] [place] [address] [employer] Cecily Giang CLIA [id number] HCHOL CHOLESTEROL INTERPRETATION Desirable <200 Borderline High 200-239 High >240 Normal [facility] Comment on above: Performed By: #### 5 7698-3 #### [facility] [address] [place] [address] [employer] Cecily MCMILLANIA [id number] HLDL LDL INTERPRETATION Desirable <100 Near Optimal 100-129 Borderline High 130-159 High 160-190 Very High >190 Normal [facility] Comment on above: Performed By: #### 5 7698-3 #### [facility] [address] [place] [address] [employer] Cecily Giang CLIA [id number] HLIPID ATEROSCLEROSIS RISK FACTORS FOR LDL, HDL, AND CHOLESTEROL RISK FACTOR SEX LDL/HDL CHOL/HDL 1/2 Average M 1.00 3.43 F 1.47 3.27 Average M 3.55 4.97 F 3.22 4.44 2X Average M 6.25 9.55 F 5.03 7.05 3X Average M 7.99 23.39 F 6.14 11.04 Normal [facility] Comment on above: Performed By: #### 5 7698-3 #### [facility] [address] [facility] [place] [address] [employer] Cecily ZHANG [id number] HTRIG TRIGLYCERIDES INTERPRETATION Normal <150 Borderline High 150-199 High 200-499 Very High >500 Normal [facility] Comment on above: Performed By: #### 5 7698-3 #### [facility] [address] [facility] [place] [address] [employer] Cecily ZHANG [id number] LDL/HDL 3.6 Normal [facility] Comment on above: Performed By: #### 5 7698-3 #### [facility] [address] [facility] [place] [address] [employer] - Cecily ZHANG [id number] Triglyceride [Mass/Vol] 127 mg/dL Normal <=150 [facility] Comment on above: Performed By: #### 5 7698-3 #### [facility] [address] [facility] [place] [address] [employer] Cecily ZHANG [id number] PLATELET COUNTon 09-03-2022 Platelets (Bld) [#/Vol] 206 10*3/uL Normal 130-400 [facility] Comment on above: Performed By: #### 2 6515-7, 21609-8 #### [facility] [address] [place] [address] [employer] Cecily ZHANG [id number] CBC W Auto Differential pane l (Bld)on 2022 Basophils (Bld) [#/Vol] 0.06 10*3/uL Normal <=0.70 [facility] Comment on above: Performed By: #### 5 7021-8 #### [place] [address] [place] [address] [employer] Cecily MCMILLANIA [id number] Basophils/100 WBC (Bld) 0.7 % Normal <=2.0 [facility] Comment on above: Performed By: #### 5 7021-8 #### [place] [address] [place] [address] [employer] - Cecily ZHANG [id number] Eosinophils (Bld) [#/Vol] 0.01 10*3/uL Normal <=0.70 [facility] Comment on above: Performed By: #### 5 7021-8 #### [place] [address] [place] [address] [employer] - Cecily MCMILLANIA [id number] Eosinophils/100 WBC (Bld) 0.1 % Normal <=10.0 [facility] Comment on above: Performed By: #### 5 7021-8 #### [place] [address] [place] [address] [employer] - Cecily ZHANG [id number] Erythrocyte distribution width (RBC) [Entitic vol] 45.0 fL High 35.1-43.9 [facility] Comment on above: Performed By: #### 5 7021-8 #### [place] [address] [place] [address] [employer] - Cecily ZHANG [id number] Hematocrit (Bld) [Volume fraction] 50.2 % Normal 40.0-54.0 [facility] Comment on above: Performed By: #### 5 7021-8 #### [place] [address] [place] [address] [employer] - Cecily MCMILLANIA [id number] Hemoglobin (Bld) [Mass/Vol] 17.2 g/dL Normal 14.0-18.0 [facility] Comment on above: Performed By: #### 5 7021-8 #### [address] [place] [address] [employer] Cecily Giang CLIA [id number] Immature granulocytes (Bld) [#/Vol] 0.03 10*3/uL Normal <=0.10 [facility] Comment on above: Performed By: #### 5 7021-8 #### [address] [place] [address] [employer] - Cecily MCMILLANIA [id number] Immature granulocytes/100 WBC (Bld) 0.40 % Normal <=1.50 [facility] Comment on above: Performed By: #### 5 7021-8 #### [address] [place] [address] [employer] Cecily Giang CLIA [id number] Lymphocytes (Bld) [#/Vol] 2.12 10*3/uL Normal 1.20-3.40 [facility] Comment on above: Performed By: #### 5 7021-8 #### [place] [address] [employer] Cecily Giang CLIA [id number] Lymphocytes/100 WBC (Bld) 26.1 % Normal 20.0-40.0 [facility] Comment on above: Performed By: #### 5 7021-8 #### [address] [place] [address] [employer] - Cecily MCMILLANIA [id number] MCH (RBC) [Entitic mass] 31.9 pg High 27.0-31.0 [facility] Comment on above: Performed By: #### 5 7021-8 #### [address] [place] [address] [employer] - Cecily Giang CLIA [id number] MCHC (RBC) [Mass/Vol] 34.3 g/dL Normal 32.0-36.0 [facility] Comment on above: Performed By: #### 5 7021-8 #### [place] [address] [place] [address] [employer] - Cecily MCMILLANIA [id number] MCV (RBC) [Entitic vol] 93.0 fL Normal 80.0-100.0 [facility] Comment on above: Performed By: #### 5 7021-8 #### [address] [place] [address] [employer] - Cecily MCMILLANIA [id number] Monocytes (Bld) [#/Vol] 0.69 10*3/uL High 0.10-0.60 [facility] Comment on above: Performed By: #### 5 7021-8 #### [address] [place] [address] [employer] - Cecily Giang CLIA [id number] Monocytes/100 WBC (Bld) 8.5 % High <=8.0 [facility] Comment on above: Performed By: #### 5 7021-8 #### [address] [place] [address] [employer] - Cecily Giang CLIA [id number] Neutrophils (Bld) [#/Vol] 5.22 10*3/uL Normal 1.40-6.50 [facility] Comment on above: Performed By: #### 5 7021-8 #### [address] [place] [address] [employer] - Cecily Giang CLIA [id number] Neutrophils/100 WBC (Bld) 64.2 % Normal 50.0-70.0 [facility] Comment on above: Performed By: #### 5 7021-8 #### [address] [place] [address] [employer] - Cecily MCMILLANIA [id number] Nucleated RBC (Bld) [#/Vol] 0.00 10*3/uL Normal <=0.10 [facility] Comment on above: Performed By: #### 5 7021-8 #### [facility] [address] [facility] [place] [address] [employer] - Cecily ZHANG [id number] Platelet mean volume (Bld) [Entitic vol] 9.7 fL Normal 9.0-13.0 [facility] Comment on above: Performed By: #### 5 7021-8 #### [address] [place] [address] [employer] - Cecily MCMILLANIA [id number] Platelets (Bld) [#/Vol] 198 10*3/uL Normal 130-400 [facility] Comment on above: Performed By: #### 5 7021-8 #### [address] [place] [address] [employer] - Cecily ZHANG [id number] RBC (Bld) [#/Vol] 5.40 10*6/uL Normal 4.00-6.30 [facility] Comment on above: Performed By: #### 5 7021-8 #### [address] [place] [address] [employer] - Cecily ZHANG [id number] WBC (Bld) [#/Vol] 8.13 10*3/uL Normal 4.80-10.80 [facility] Comment on above: Performed By: #### 5 7021-8 #### [address] [place] [address] [employer] - Cecily ZHANG [id number] CHEST AP PORTABLEon 09-02-20 CHEST AP PORTABLE EXAM: CHEST AP PORTABLE HISTORY: Chest pain COMPARISON: None. TECHNIQUE: Single frontal view of the chest. FINDINGS: Tubes/lines/devices: Defibrillator pad over the right axilla Lungs: Adequate inflation. Left basilar streaky opacity, likely atelectasis. No evidence of pneumonia or pulmonary edema. Pleura: No pneumothorax. No pleural effusion. Heart and mediastinum: No enlargement of the cardiomediastinal silhouette. Bones/soft tissues: No acute osseous findings. Left carotid atherosclerosis. Abdomen: Unremarkable. IMPRESSION: No acute pulmonary findings. Normal [facility] Comprehensive metabolic 2000 panelon 2022 Albumin [Mass/Vol] 3.6 g/dL Normal 3.4-5.0 [facility] Comment on above: Performed By: #### 5 7698-3 #### [facility] [address] [place] [address] [employer] - Cecily Giang CLIA [id number] ALP [Catalytic activity/Vol] 79 U/L Normal 50-136 [facility] Comment on above: Performed By: #### 5 7698-3 #### [facility] [address] [place] [address] [employer] - Cecily Giang CLIA [id number] ALT [Catalytic activity/Vol] 23 U/L Normal 16-63 [facility] Comment on above: Performed By: #### 5 7698-3 #### [facility] [address] [place] [address] [employer] - Cecily Giang CLIA [id number] Anion gap [Moles/Vol] 0.0 mmol/L Normal <=15.0 [facility] Comment on above: Performed By: #### 5 7698-3 #### [facility] [address] [place] [address] [employer] - Cecily Giang CLIA [id number] AST [Catalytic activity/Vol] 19 U/L Normal 15-37 [facility] Comment on above: Performed By: #### 5 7698-3 #### [facility] [address] [place] [address] [employer] - Cecily Giang CLIA [id number] Bilirubin [Mass/Vol] 0.8 mg/dL Normal 0.2-1.0 [facility] Comment on above: Performed By: #### 5 7698-3 #### [facility] [address] [place] [address] [employer] - Cecily Giang CLIA [id number] Calcium [Mass/Vol] 8.8 mg/dL Normal 8.5-10.1 [facility] Comment on above: Performed By: #### 5 7698-3 #### [facility] [address] [place] [address] [employer] - Cecily MCMILLANIA [id number] Chloride [Moles/Vol] 112 mmol/L High 98-107 [facility] Comment on above: Performed By: #### 5 7698-3 #### [facility] [address] [place] [address] [employer] - Cecily MCMILLANIA [id number] CO2 [Moles/Vol] 30 mmol/L Normal 21-32 [facility] Comment on above: Performed By: #### 5 7698-3 #### [facility] [address] [place] [address] [employer] - Cecily ZHANG [id number] Creatinine [Mass/Vol] 1.09 mg/dL Normal 0.67-1.17 [facility] Comment on above: Performed By: #### 5 7698-3 #### [facility] [address] [place] [address] [employer] - Cecily ZHANG [id number] GFR/1.73 sq M.predicted MDRD (S/P/Bld) [Vol rate/Area] mL/min/{1.73_m2} Normal >=59 [facility] Comment on above: Performed By: #### 5 7698-3 #### [facility] [address] [place] [address] [employer] - Cecily MCMILLANIA [id number] Glucose [Mass/Vol] 130 mg/dL High 74-106 [facility] Comment on above: Performed By: #### 5 7698-3 #### [facility] [address] [place] [address] [employer] - Cecily ZHANG [id number] HGFR GLOMERULAR FILTRATION RATE INTERPRETATION~The eGFR is calculated using the MDRD equation.~This equation has been validated in patients with chronic kidney disease;~however, it underestimates the GFR in healthy patients with GFR's over 60 mL/min.~The equation is not valid in children under the age of 18.~NOTE: Criteria for Chronic Kidney Disease:~ ~1. Kidney damage for at least three months, as defined~by structural or functional abnormalities of the kidney,~with or without decreased glomerular filtration rate, manifested by either:~* Pathological abnormalities or~* Markers of Kidney damage, including abnormalities in~the composition of the blood or urine or abnormalities in imaging tests.~ ~2. GFR <60 mL/min/1.73 m squared for at least three months, with or without kidney damage.~ Normal [facility] Comment on above: Performed By: #### 5 7698-3 #### [facility] [address] [place] [address] [employer] - Cecilynasrin MCMILLANIA [id number] Potassium [Moles/Vol] 5.0 mmol/L Normal 3.5-5.1 [facility] Comment on above: Performed By: #### 5 7698-3 #### [facility] [address] [place] [address] [employer] CLIA [id number] Protein [Mass/Vol] 6.1 g/dL Low 6.4-8.2 [facility] Comment on above: Performed By: #### 5 7698-3 #### [facility] [address] [place] [address] [employer] CLIA [id number] Sodium [Moles/Vol] 142 mmol/L Normal 136-145 [facility] Comment on above: Performed By: #### 5 7698-3 #### [facility] [address] [place] [address] [employer] CLIA [id number] Urea nitrogen [Mass/Vol] 18 mg/dL Normal 9-20 [facility] Comment on above: Performed By: #### 5 7698-3 #### [facility] [address] [place] [address] [employer] MCMILLANIA [id number] LIPASEon 2022 Lipase [Catalytic activity/Vol] 103 U/L Normal 73-393 [facility] Comment on above: Performed By: #### 5 7698-3 #### [facility] [address] [place] [address] [employer] - Cecily ZHANG [id number] MAGNESIUMon 2022 Magnesium [Mass/Vol] 2.5 mg/dL Normal 1.6-2.6 [facility] Comment on above: Performed By: #### 1 9123-9, 3040-3, 48126-6 #### [facility] [address] [place] [address] [employer] - Cecily ZHANG [id number] PT and aPTT panel Coag (PPP) on 2022 aPTT Coag (PPP) [Time] 25.8 s Normal 23.5-31.3 [facility] Comment on above: Performed By: #### 3 4529-8 #### [facility] [address] [place] [address] [employer] - Cecily ZHANG [id number] HPTINR INR REFERENCE RANGE INTERPRETATION Patients on Coumadin 2.0 - 3.0 Patients with mechanical heart valves 2.5 - 3.5 Normal [facility] Comment on above: Performed By: #### 3 4529-8 #### [facility] [address] [place] [address] [employer] - Cecily ZHANG [id number] INR Coag (PPP) [Relative time] 1.1 {INR} Normal 0.8-1.1 [facility] Comment on above: Performed By: #### 3 4529-8 #### [facility] [address] [place] [address] [employer] - Cecily ZHANG [id number] PT Coag (PPP) [Time] 11.3 s Normal 9.3-11.5 [facility] Comment on above: Performed By: #### 3 4529-8 #### [facility] [address] [place] [address] [employer] - Cecily ZHANG [id number] TROPONIN HIGH SENSITIVITYon 2022 TNIH 14.00 pg/mL Normal <=59.00 [facility] Comment on above: Result Comment: <59 pg/mL is considered a negative result. Performed By: #### 5 7698-3 #### [facility] [address] [place] [address] [employer] - Cecily ZHANG [id number] Absolute lymphocyte counton 05-16-2022 Lymphocytes Auto (Unsp spec) [#/Vol] 2.21 10*3/uL 0.83-4.51 [facility] Work Phone: Basophil percentageon 2021 Basophils/100 WBC (Bld) 0.8 % 0-1 [facility] Work Phone: Chloride [Moles/Vol] 106 mmol/L 98-107 [facility] Work Phone: Eosinophils/100 WBC (Bld) 0.0 % 0-5 [facility] Work Phone: Glucose [Mass/Vol] 98 mg/dL 74-106 [facility] Work Phone: Neutrophils (Bld) [#/Vol] 6.6 10*3/uL 2.0-7.7 [facility] Work Phone: Neutrophils/100 WBC (Bld) 68.0 % 47-70 [facility] Work Phone: Potassium [Moles/Vol] 4.4 mmol/L 3.5-5.1 [facility] Work Phone: Sodium [Moles/Vol] 140 mmol/L 136-145 [facility] Work Phone: WBC (Bld) [#/Vol] 9.7 10*3/uL 4.4-11.0 [facility] Work Phone: Blood erythrocytes count (nu mber/volume)on 05-16-2022 RBC (Bld) [#/Vol] 5.12 10*6/uL 4.6-6.2 [facility] Work Phone: Blood hemoglobin measurement (mass/volume)on 05-16-2022 Hemoglobin (Bld) [Mass/Vol] 16.6 g/dL 13.0-16.5 [facility] Work Phone: Blood lymphocytes/100 leukoc yteson 05-16-2022 Lymphocytes/100 WBC (Bld) 22.8 % 19-41 [facility] Work Phone: [phone] Blood monocytes/100 leukocyt eson 05-16-2022 Monocytes/100 WBC (Bld) 8.1 % 0-10 [facility] Work Phone: Blood platelet mean volumeon 05-16-2022 Platelet mean volume (Bld) [Entitic vol] 9.8 fL 6.2-12.0 [facility] Work Phone: Determination of erythrocyte mean corpuscular volume (MCV)on 05-16-2022 MCV (RBC) [Entitic vol] 92.6 fL 80-94 [facility] Work Phone: Hematocrit Auto (Bld) [Volum e fraction]on 05-16-2022 Hematocrit (Bld) [Volume fraction] 47.4 % 40-54 [facility] Work Phone: Laboratory - Chemistry and C hemistry - challengeon 05-16-2022 CO2 [Moles/Vol] 32.0 mmol/L 21.0-32.0 [facility] Work Phone: Magnesium [Mass/Vol] 2.4 mg/dL 1.6-2.6 [facility] Work Phone: Urea nitrogen/Creatinine [Mass ratio] 21.0 mg/mg 10-20 [facility] Work Phone: Laboratory - Hematology and Cell countson 05-16-2022 Erythrocyte distribution width (RBC) [Entitic vol] 44.2 fL 35.1-43.9 [facility] Work Phone: [phone] Erythrocyte distribution width (RBC) [Ratio] 13.0 % 11.6-14.6 [facility] Work Phone: Immature granulocytes/100 WBC (Bld) 0.300 % 0.0-0.9 [facility] Work Phone: Comment on above: IG% - Immature Granu locytes (promyelocytes, myelocytes and metamyelocytes) > 1% indicates that a LEFT SHIFT is Present. MCH (RBC) [Entitic mass] 32.4 pg 27.0-32.0 [facility] Work Phone: Nucleated RBC/100 WBC (Bld) [Ratio] 0 % 0-5 [facility] Work Phone: MCHC Auto (RBC) [Mass/Vol]on 05-16-2022 MCHC (RBC) [Mass/Vol] 35.0 g/dL 32-36 [facility] Work Phone: No Panel Informationon 05-16 Estimated GFR (MDRD) Amer 88 mL/min >60 [facility] Work Phone: Comment on above: GFR Calc Estimated GFR (MDRD) Non-Af Amer 73 mL/min >60 [facility] Work Phone: Comment on above: Non- GFR Calc Thyroid Stimulating Hormone (TSH) 0.76 uIU/mL 0.358-3.74 [facility] Work Phone: Platelets bldon 05-16-2022 Platelets (Bld) [#/Vol] 209 10*3/uL 150-450 [facility] Work Phone: Serum or plasma calcium santa urement (mass/volume)on 05-16-2022 Calcium [Mass/Vol] 8.8 mg/dL 8.5-10.1 [facility] Work Phone: [phone] Serum or plasma creatinine m easurement (mass/volume)on 05-16-2022 Creatinine [Mass/Vol] 1.05 mg/dL 0.70-1.30 [facility] Work Phone: Comment on above: The validity of the calculated GFR & GFRAA in patients over 70 years has not been determined. Clinical correlation is essential. Serum or plasma urea nitroge n measurement (mass/volume)on 05-16-2022 Urea nitrogen [Mass/Vol] 22 mg/dL 7-18 [facility] Work Phone: Thin prep Papanicolaou smear with manual screeningon 05-16-2022 Thin prep Papanicolaou smear with manual screening 2 - [facility] Work Phone: ELBOW WITH OBLIQUES LEFTon 0 01-07-2022 ELBOW WITH OBLIQUES LEFT EXAM: ELBOW WIT H OBLIQUES LEFT HISTORY: Left elbow pain COMPARISON: None. TECHNIQUE: 4 views FINDINGS: Alignment is normal. Joint spaces are intact. There are mild enthesopathic changes. There is no fracture, dislocation or evidence of joint effusion. IMPRESSION: No acute findings Normal [facility] CBCon 12-22-2021 Erythrocyte distribution width (RBC) [Ratio] 13.0 % Normal 11.5 - 14.5 [facility] Comment on above: Performed By: #### C BC #### [address] [address] Hematocrit (Bld) [Volume fraction] 49.0 % Normal 41.0 - 52.0 [facility] Comment on above: Performed By: #### C BC #### [address] [address] Hemoglobin (Bld) [Mass/Vol] 17.4 g/dL Normal 13.5 - 17.5 [facility] Comment on above: Performed By: #### C BC #### [address] [address] MCHC (RBC) [Mass/Vol] 35.5 g/dL Normal 32.0 - 36.0 [facility] Comment on above: Performed By: #### C BC #### [address] [address] MCV (RBC) [Entitic vol] 89 fL Normal 80 - 100 [facility] Comment on above: Performed By: #### C BC #### [address] [address] Platelets (Bld) [#/Vol] 228 10*3/uL Normal 150 - 450 [facility] Comment on above: Performed By: #### C BC #### [address] [address] RBC 5.48 x10E12/L Normal 4.50 - 5.90 [facility] Comment on above: Performed By: #### C BC #### [address] [address] WBC (Bld) [#/Vol] 8.2 10*3/uL Normal 4.4 - 11.3 [facility] Comment on above: Performed By: #### C BC #### [address] [address] COMPREHENSIVE PANELon 2021 Albumin [Mass/Vol] 4.4 g/dL Normal 3.4 - 5.0 [facility] Comment on above: Performed By: #### C MP #### [address] [address] ALP [Catalytic activity/Vol] 64 U/L Normal 33 - 136 [facility] Comment on above: Performed By: #### C MP #### [address] [address] ALT [Catalytic activity/Vol] 3 U/L Low 10 - 52 [facility] Comment on above: Result Comment: Alida ents treated with Sulfasalazine may generate falsely decreased results for ALT. Performed By: #### C MP #### [address] [address] Anion gap [Moles/Vol] 11 mmol/L Normal 10 - 20 [facility] Comment on above: Performed By: #### C MP #### [address] [address] AST [Catalytic activity/Vol] 19 U/L Normal 9 - 39 [facility] Comment on above: Performed By: #### C MP #### [address] [address] Bilirubin [Mass/Vol] 0.9 mg/dL Normal 0.0 - 1.2 [facility] Comment on above: Performed By: #### C MP #### [address] [address] Calcium [Mass/Vol] 9.5 mg/dL Normal 8.6 - 10.3 [facility] Comment on above: Performed By: #### C MP #### [address] [address] Chloride [Moles/Vol] 104 mmol/L Normal 98 - 107 [facility] Comment on above: Performed By: #### C MP #### [address] [address] Creatinine [Mass/Vol] 0.88 mg/dL Normal 0.50 - 1.30 [facility] Comment on above: Performed By: #### C MP #### [address] [address] GFR/1.73 sq M.predicted among non-blacks MDRD (S/P/Bld) [Vol rate/Area] 88 mL/min/{1.73_m2} Normal >90 [facility] Comment on above: Result Comment: CALC ULATIONS OF ESTIMATED GFR ARE PERFORMED USING THE 2020 CKD-EPI STUDY REFIT EQUATION WITHOUT THE RACE VARIABLE FOR THE IDMS-TRACEABLE CREATININE METHODS. https://jasn.asnjournals.org/content/early//ASN.339 8569900 Performed By: #### C MP #### [address] [address] Glucose [Mass/Vol] 112 mg/dL High 74 - 99 [facility] Comment on above: Performed By: #### C MP #### [address] [address] HCO3 (Bld) [Moles/Vol] 29 mmol/L Normal 21 - 32 [facility] Comment on above: Performed By: #### C MP #### [address] [address] Potassium [Moles/Vol] 3.8 mmol/L Normal 3.5 - 5.3 [facility] Comment on above: Performed By: #### C MP #### [address] [address] Protein [Mass/Vol] 6.2 g/dL Low 6.4 - 8.2 [facility] Comment on above: Performed By: #### C MP #### [address] [address] Sodium [Moles/Vol] 140 mmol/L Normal 136 - 145 [facility] Comment on above: Performed By: #### C MP #### [address] [address] Urea nitrogen [Mass/Vol] 18 mg/dL Normal 6 - 23 [facility] Comment on above: Performed By: #### C MP #### [address] [address] URINALYSISon 12-22-2021 Appearance (U) CLEAR Normal CLEAR [facility] Comment on above: Performed By: #### U A #### [address] [address] Bilirubin Ql (U) Negative Normal NEGATIVE [facility] Comment on above: Performed By: #### U A #### [address] [address] Color (U) Yellow Normal STRAW,YELLOW [facility] Comment on above: Performed By: #### U A #### [address] [address] Glucose Ql (U) Negative Normal NEGATIVE [facility] Comment on above: Performed By: #### U A #### [address] [address] Hemoglobin Ql (U) Negative Normal NEGATIVE [facility] [place] Comment on above: Performed By: #### U A #### [address] [address] Ketones Ql (U) 5(TRACE) Abnormal NEGATIVE [facility] Comment on above: Performed By: #### U A #### [address] [address] Leukocyte esterase Test strip Ql (U) Negative Normal NEGATIVE [facility] Comment on above: Performed By: #### U A #### [address] [address] Nitrite Ql (U) Negative Normal NEGATIVE [facility] Comment on above: Performed By: #### U A #### [address] [address] pH (U) 6.0 [pH] Normal 5.0 - 8.0 [facility] Comment on above: Performed By: #### U A #### [address] [address] Protein Ql (U) Negative Normal NEGATIVE [facility] Comment on above: Performed By: #### U A #### [address] [address] Specific gravity (U) [Rel density] 1.012 Normal 1.005 - 1.035 [facility] Comment on above: Performed By: #### U A #### [address] [address] Urobilinogen (U) [Mass/Vol] mg/dL Normal 0.0 - 1.9 [facility] Comment on above: Performed By: #### U A #### [address] [address] Lab Report: Basic Metabolic Profile (BMP)on 09-11-2017 Anion gap 10 mmol/L Invalid Interpretation Code 5-15 [employer] Work Phone: [phone] BUN/Creatinine Ratio 13.7 RATIO Invalid Interpretation Code 10-20 [employer] Work Phone: [phone] Calcium 8.7 mg/dL Invalid Interpretation Code 8.5-10.1 [employer] Work Phone: [phone] Chloride 103 mmol/L Invalid Interpretation Code 98-107 [employer] Work Phone: [phone] CO2 28.0 mmol/L Invalid Interpretation Code 21.0-32.0 [employer] Work Phone: [phone] Creatinine 0.95 mg/dL Invalid Interpretation Code 0.70-1.30 [employer] Work Phone: [phone] eGFR (non-black) 82 mL/min/{1.73_m2} Invalid Interpretation Code >60 [employer] Work Phone: [phone] eGFR (non-black) 100 mL/min/{1.73_m2} Invalid Interpretation Code >60 [employer] Work Phone: [phone] Glucose 99 mg/dL Invalid Interpretation Code 70-110 [employer] Work Phone: [phone] Potassium 4.5 mmol/L Invalid Interpretation Code 3.5-5.1 [employer] Work Phone: [phone] Sodium 141 mmol/L Invalid Interpretation Code 136-145 [employer] Work Phone: [phone] Urea nitrogen 13 mg/dL Invalid Interpretation Code 7-18 [employer] Work Phone: [phone] Lab Report: Lipid Profileon 09-11-2017 Cholesterol 130 mg/dL Invalid Interpretation Code 200 [employer] Work Phone: [phone] HDL Cholesterol 40 mg/dL Invalid Interpretation Code [employer] Phone: [phone] LDL Cholesterol 59 mg/dL Invalid Interpretation Code 0-130 [employer] Work Phone: [phone] Triglyceride 156 mg/dL Invalid Interpretation Code [employer] Phone: [phone] very low density lipoproteins 31 mg/dL Invalid Interpretation Code 5-40 [employer] Work Phone: [phone] Lab Report: Liver Profileon 09-11-2017 Alanine aminotransferase (ALT) 33 U/L Invalid Interpretation Code 12-78 [employer] Phone: [phone] Albumin 3.8 g/dL Invalid Interpretation Code 3.4-5.0 [employer] Phone: [phone] Alkaline phosphatase (ALP) 58 U/L Invalid Interpretation Code 45-117 [employer] Phone: [phone] Aspartate aminotransferase (AST) 23 U/L Invalid Interpretation Code 15-37 [employer] Phone: [phone] Bilirubin (direct) 0.19 mg/dL Invalid Interpretation Code 0.00-0.30 [employer] Phone: [phone] Bilirubin (total) 0.80 mg/dL Invalid Interpretation Code 0.20-1.00 [employer] Work Phone: [phone] Globulin 2.9 g/dL Invalid Interpretation Code 2.2-4.2 [facility] Work Phone: [phone] Protein 6.7 g/dL Invalid Interpretation Code 6.4-8.2 [facility] Work Phone: [phone] Lab Report: Lipid Profileon 03-12-2017 Cholesterol in HDL mass conc 39 mg/dL Low [facility] Work Phone: [phone] Cholesterol in LDL mass conc 40 mg/dL 0-130 [facility] Work Phone: [phone] Cholesterol mass conc 111 mg/dL [address] [facility] Work Phone: [phone] Lipoprotein.pre-beta mass conc 32 mg/dL 5-40 [facility] Work Phone: [phone] Triglyceride mass conc 159 mg/dL [facility] Work Phone: [phone] Lab Report: Liver Profileon 03-12-2017 Albumin mass conc 3.9 g/dL 3.4-5.0 [facility] Work Phone: [phone] Alkaline phosphatase (ALP) 62 U/L Invalid Interpretation Code 45-117 [facility] Work Phone: [phone] ALP enzyme act/vol (Bld) 62 U/L 45-117 [facility] Work Phone: [phone] ALT enzyme act/vol 30 U/L 12-78 [facility] Work Phone: [phone] AST enzyme act/vol 23 U/L 15-37 [facility] Work Phone: [phone] Bilirubin mass conc 0.60 mg/dL 0.20-1.00 [facility] Work Phone: [phone] Bilirubin.direct mass conc 0.16 mg/dL 0.00-0.30 [facility] Work Phone: [phone] Globulin 2.4 g/dL Invalid Interpretation Code 2.3-3.5 [facility] Work Phone: [phone] Globulin mass conc (S) 2.4 g/dL 2.3-3.5 [facility] Work Phone: [phone] Protein mass conc 6.3 g/dL Low 6.4-8.2 [facility] Work Phone: [phone] Office Visit: [facility] 03-12-20 17 Fall risk assessment No Invalid Interpretation Code [facility] Work Phone: [phone] Office Visiton 09-05-2016 Documentation of current medications (procedure) Done Invalid Interpretation Code [facility] Work Phone: [phone] Protein mass conc Done [facility] Work Phone: [phone] Office Visiton 01-12-2015 cardiac risk group C Invalid Interpretation Code [facility] Work Phone: [phone] General cardiovascular disease 10Y risk [#] [place]D'Agost[place] N/A Invalid Interpretation Code [facility] Work Phone: [phone] Tobacco smoking status NHIS Tobacco smoking status NHIS Invalid Interpretation Code [facility] Work Phone: [phone] Tobacco smoking status UTIS Former smoker [facility] Work Phone: [phone] Tobacco use [facility] Former smoker Invalid Interpretation Code [facility] Work Phone: [phone] Lab Report: LIVER 08-05-20 14 ALK 68 U/L Normal 50-136 [facility] Work Phone: [phone] GE use only - for [employer] import when terms are not otherwise specified 68 U/L Normal 50-136 [facility] Work Phone: [phone] Office Visiton 10-29-2013 Alcoholism counseling (procedure) no Invalid Interpretation Code [facility] Work Phone: [phone] Protein mass conc no [facility] Work Phone: [phone] 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 Anion gap 8 mmol/L Invalid Interpretation Code [facility] Work Phone: [phone] Anion gap molar conc 8 mmol/L [facility] Work Phone: [phone] Calcium mass conc 8.3 mg/dL Low [facility] Work Phone: [phone] Chloride molar conc 109 mmol/L High [facility] Work Phone: [phone] CO2 24 mmol/L Invalid Interpretation Code [facility] Work Phone: [phone] CO2 ppres (BldV) 24 mmol/L [facility] Work Phone: [phone] Creatinine mass conc 0.8 mg/dL [facility] Work Phone: [phone] Glucose 85 mg/dL Invalid Interpretation Code [facility] Work Phone: [phone] Glucose mass conc 85 mg/dL [facility] Work Phone: [phone] Hematocrit (HCT) 45.0 % Invalid Interpretation Code [facility] Work Phone: [phone] Hematocrit Volume Fraction (Bld) 45.0 % [facility] Work Phone: [phone] Hemoglobin mass conc (Bld) 15.6 g/dL Invalid Interpretation Code [facility] Work Phone: [phone] INR Coag RelTime (PPP) 1.2 {INR} [facility] Work Phone: [phone] INR in blood by coagulation 1.2 {INR} Invalid Interpretation Code [facility] Work Phone: [phone] Platelets 218 10*3/mm3 Invalid Interpretation Code [facility] Work Phone: [phone] Platelets #/vol (Bld) 218 10*3/mm3 [facility] Work Phone: [phone] Potassium molar conc 4.1 mmol/L [facility] Work Phone: [phone] Prothrombin time (PT) Coag time (PPP) 14.0 s Invalid Interpretation Code [facility] Work Phone: [phone] Sodium molar conc 141 mmol/L [facility] Work Phone: [phone] Urea nitrogen mass conc 10 mg/dL [facility] Work Phone: [phone] WBC #/vol (Bld) 7.4 10*3/uL [facility] Work Phone: [phone] WBC (Leukocytes) 7.4 10*3/uL Invalid Interpretation Code [facility] Work Phone: [phone]) Clinical Lists Update: Prelo help desk supervisor 02-28-2013 Urea nitrogen/Creatinine mass ratio 14.0 mg/mg [facility] Work Phone: [phone]) Clinical Lists Update: Prelo help desk supervisor 02-10-2013 Erythrocytes (RBC) 4.96 10*6/uL Invalid Interpretation Code [facility] Work Phone: [phone] MCH 33.5 pg High [facility] Work Phone: [phone] MCH Entitic mass (RBC) 33.5 pg High [facility] Work Phone: [phone] MCV 94.6 fL High [facility] Work Phone: [phone] MCV Entitic volume (RBC) 94.6 fL High [facility] Work Phone: [phone] RBC #/vol (Bld) 4.96 10*6/uL [facility] Work Phone: [phone] Replaced Document: Clementine SOLANO Observationson 01-08-2013 EKG QRS axis -31 deg [facility] Work Phone: [phone] electrocardiogram interpretation Sinus Rhythm -Anterolateral ST-elevation -repolarization variant . PROBABLY NORMAL Invalid Interpretation Code [facility] Work Phone: [phone] Interpretation Sinus Rhythm -Anterolateral ST-elevation -repolarization variant . PROBABLY NORMAL [facility] Work Phone: [phone] P [place] 41 deg [facility] Work Phone: [phone] P wave axis, electrocardiogram 41 deg Invalid Interpretation Code [facility] Work Phone: [phone] GA Interval 152 ms [facility] Work Phone: [phone] GA interval, electrocardiogram 152 ms Invalid Interpretation Code [facility] Work Phone: [phone] Pulse (Heart Rate) 381 ms Invalid Interpretation Code [facility] Work Phone: [phone] Pulse (Heart Rate) 65 /min Invalid Interpretation Code [facility] Work Phone: [phone] QRS axis, electrocardiogram -31 deg Invalid Interpretation Code [facility] Work Phone: [phone] QRS Duration 100 ms [facility] Work Phone: [phone] QRS duration, electrocardiogram 100 ms Invalid Interpretation Code [facility] Work Phone: [phone] QT Interval new path ms [facility] Work Phone: [phone] QT interval, electrocardiogram new path ms Invalid Interpretation Code [facility] Work Phone: [phone] T [place] 45 deg [facility] [employer] Work Phone: [phone] T wave axis, electrocardiogram 45 deg Invalid Interpretation Code [facility] Work Phone: [phone] Lab Report: TSHon 09-23-2012 Thyrotropin Qn 0.94 u[iU]/mL Normal 0.358-3.74 [facility] Work Phone: [phone] Clinical Lists Update: Prelo help desk supervisor 03-03-2012 Cholesterol.total/Choles terol in HDL mass ratio 3.3 {ratio} Invalid Interpretation Code [facility] Work Phone: [phone] Lab Reporton 10-10-2011 basophils as percent of blood leukocytes, manual count 0.3 % Invalid Interpretation Code [facility] Work Phone: [phone] eosinophils as percent of blood leukocytes, manual count 5.0 % Invalid Interpretation Code [facility] Work Phone: [phone] Lymphocytes/100 leukocytes 13.9 % Invalid Interpretation Code [facility] [employer] Work Phone: [phone] Lymphocytes/100 WBC (Bld) 13.9 % [facility] Work Phone: [phone] Monocytes/100 leukocytes 5.9 % Invalid Interpretation Code [facility] Work Phone: [phone] Monocytes/100 WBC (Bld) 5.9 % [facility] Work Phone: [phone] neutrophils, band form as percent of blood leukocytes, manual count 74.9 % Invalid Interpretation Code [facility] Work Phone: [phone] Otheron 05-30-2004 CONVERTED ELECTRONIC SIGNATURE REE MOLINA M.D., PATHOLOGIST (Electronic signature on file) Final Signed Out: 05/30/2004 14:51 [facility] CONVERTED FINAL DIAGNOSIS INTERVERTEBRAL DISC, L5-S1, EXCISION - FIBROCARTILAGE WITH DEGENERATIVE CHANGES. [facility] CONVERTED ORDERING PROVIDER Ordering Provider: HOOD NAGY [facility] Vital Signs Date Time Vital Sign Value Performing Clinician Faci lity 08-09-2023 15:27-0500 Body height 165.[address] Pb Mcneil Work Phone: [facility] 08-09-2023 15:27-0500 Body temperature 97.1 [degF] Dr. Pb Mcneil Work Phone: [facility] 08-09-2023 15:27-0500 Diastolic blood pressure 63 mm[Hg] Dr. Pb Mcneil Work Phone: [facility] 08-09-2023 15:27-0500 Heart rate 48 /min Dr. Pb Mcneil Work Phone: [phone] [place] [address] 08-09-2023 15:27-0500 Respiratory rate 16 /min Dr. Pb Mcneil Work Phone: [phone] [place] [address] 08-09-2023 15:27-0500 SaO2% (BldA) [Mass fraction] 99 % Dr. Pb Mcneil Work Phone: [phone] [place] [address] 08-09-2023 15:27-0500 Systolic blood pressure 149 mm[Hg] Dr. Pb Mcneil Work Phone: [phone] [place] [address] 07-26-2023 13:59-0400 Body mass index (BMI) [Ratio] 20.9 kg/m2 Dr. Pb Mcneil Work Phone: [facility] 07-26-2023 13:59-0400 Body temperature 97 [degF] Dr. Pb Mcneil Work Phone: [phone] [place] [address] 07-26-2023 13:59-0400 Body weight 57.[address] Pb Mcneil Work Phone: [facility] 07-26-2023 13:59-0400 Diastolic blood pressure 50 mm[Hg] Dr. Pb Mcneil Work Phone: [facility] 07-26-2023 13:59-0400 Heart rate 60 /min Dr. Pb Mcneil Work Phone: [facility] 07-26-2023 13:59-0400 Respiratory rate 17 /min Dr. Pb Mcneil Work Phone: [facility] 07-26-2023 13:59-0400 SaO2% (BldA) [Mass fraction] 99 % Dr. Pb Mcneil Work Phone: [facility] 07-26-2023 13:59-0400 Systolic blood pressure 122 mm[Hg] Dr. Pb Mcneil Work Phone: [facility] 03-01-2023 13:54-0400 Body weight 59.[address] Pb Mcneil Work Phone: [facility] 03-01-2023 13:54-0400 Diastolic blood pressure 62 mm[Hg] Dr. Pb Mcneil Work Phone: [facility] 03-01-2023 13:54-0400 Heart rate 52 /min Dr. Pb Mcneil Work Phone: [facility] 03-01-2023 13:54-0400 Respiratory rate 18 /min Dr. Pb Mcneil Work Phone: [facility] 03-01-2023 13:54-0400 Systolic blood pressure 110 mm[Hg] Dr. Pb Mcneil Work Phone: [facility] 03-01-2023 10:05-0400 Body height 165.[address] Pb Mcneil Work Phone: [facility] 11-13-2022 13:03-0500 Body height 165.[address] Pb Mcneil Work Phone: [facility] 11-13-2022 13:03-0500 Body mass index (BMI) [Ratio] 24.7 kg/m2 Dr. Pb Mcneil Work Phone: [facility] 11-13-2022 13:03-0500 Body weight 67.[address] Pb Mcneil Work Phone: [facility] 11-13-2022 13:03-0500 Diastolic blood pressure 56 mm[Hg] Dr. Pb Mcneil Work Phone: [facility] 11-13-2022 13:03-0500 Heart rate 54 /min Dr. Pb Mcneil Work Phone: [facility] 11-13-2022 13:03-0500 Respiratory rate 18 /min Dr. Pb Mcneil Work Phone: [facility] 11-13-2022 13:03-0500 SaO2% (BldA) [Mass fraction] 98 % Dr. Pb Mcneil Work Phone: [facility] 11-13-2022 13:03-0500 Systolic blood pressure 107 mm[Hg] Dr. Pb Mcneil Work Phone: [facility] 05-16-2022 13:49-0400 Body height 165.[address] Pb Mcneil Work Phone: [facility] Work Phone: 05-16-2022 13:49-0400 Body mass index (BMI) [Ratio] 25 kg/m2 Dr. Pb Mcneil Work Phone: [facility] Work Phone: 05-16-2022 13:49-0400 Body weight 68.[address] Pb Mcneil Work Phone: [facility] Work Phone: 05-16-2022 13:49-0400 Diastolic blood pressure 61 mm[Hg] Dr. Pb Mcneil Work Phone: [facility] Work Phone: 05-16-2022 13:49-0400 Heart rate 57 /min Dr. Pb Mcneil Work Phone: [facility] Work Phone: 05-16-2022 13:49-0400 Respiratory rate 18 /min Dr. Pb Mcneil Work Phone: [facility] Work Phone: 05-16-2022 13:49-0400 SaO2% (BldA) [Mass fraction] 97 % Dr. Pb Mcneil Work Phone: [facility] Work Phone: 05-16-2022 13:49-0400 Systolic blood pressure 104 mm[Hg] Dr. Pb Mcneil Work Phone: [facility] Work Phone: 03-20-2022 13:52-0400 Body mass index (BMI) [Ratio] 25 kg/m2 Dr. Pb Mcneil Work Phone: [facility] Work Phone: 03-20-2022 13:52-0400 Body temperature 97.5 [degF] Dr. Pb Mcneil Work Phone: [facility] Work Phone: 03-20-2022 13:52-0400 Body weight 68.[address] Pb Mcneil Work Phone: [facility] Work Phone: 03-20-2022 13:52-0400 Diastolic blood pressure 62 mm[Hg] Dr. Pb Mcneil Work Phone: [facility] Work Phone: 03-20-2022 13:52-0400 Heart rate 54 /min Dr. Pb Mcneil Work Phone: [facility] Work Phone: 03-20-2022 13:52-0400 Respiratory rate 18 /min Dr. Pb Mcneil Work Phone: [facility] Work Phone: 03-20-2022 13:52-0400 SaO2% (BldA) [Mass fraction] 98 % Dr. Pb Mcneil Work Phone: [facility] Work Phone: 03-20-2022 13:52-0400 Systolic blood pressure 98 mm[Hg] Dr. Pb Mcneil Work Phone: [facility] Work Phone: 03-12-2017 13:00-0400 BMI (Body Mass Index) 28.12 kg/m2 [facility] Work Phone: 03-12-2017 13:00-0400 BP Diastolic 58 mm[Hg] [facility] Work Phone: 03-12-2017 13:00-0400 BP Systolic 100 mm[Hg] Harumi Bernadette [facility] Work Phone: 03-12-2017 13:00-0400 Height 165.1 cm Harchloé DeFinis [facility] Work Phone: 03-12-2017 13:00-0400 Pulse (Heart Rate) 64 /min Harchloé DeFinjeovany [facility] Work Phone: 03-12-2017 13:00-0400 Respiratory Rate 20 /min Harchloé Fleming [facility] Work Phone: 03-12-2017 13:00-0400 Weight 76.66 kg Sheldon Fleming [facility] Work Phone: 09-05-2016 15:01-0500 BMI (Body Mass Index) 28.12 kg/m2 Samaria Dunne PA-C [facility] Work Phone: 09-05-2016 15:01-0500 BP Diastolic 50 mm[Hg] Samaria Dunne PA-C [facility] Work Phone: 09-05-2016 15:01-0500 BP Systolic 120 mm[Hg] Samaria Dunne PA-C [facility] Work Phone: 09-05-2016 15:01-0500 BSA (Body Surface Area) 1.84 m2 [facility] Work Phone: 09-05-2016 15:01-0500 Pulse (Heart Rate) 64 /min [facility] Work Phone: 09-05-2016 15:01-0500 Respiratory Rate 20 /min [facility] Work Phone: 09-05-2016 15:01-0500 Weight 76.66 kg [facility] Work Phone: 01-08-2013 11:33-0400 Heart rate 381 ms Samaria Dunne PA-C [facility] Work Phone: 01-08-2013 11:33-0400 Heart rate 65 /min Samaria Dunne PA-C [facility] Work Phone: 05-01-2012 11:17-0400 Height 165.1 cm Samaria Dunne PA-C [facility] Work Phone: Encounters Encounter Date Encounter Type Care Provider Facility Start: 04-07-2024 End: 04-07-2024 ambulatory Pb Mcneil Facility:[facility] Start: 12-14-2023 End: 12-14-[address] Pb Mcneil Work Phone: [facility] Work Phone: Start: 12-14-2023 End: 12-14-[address] Pb Mcneil Work Phone: [facility] Work Phone: Start: 12-14-2023 End: 12-14-2023 ambulatory Pb Mcneil Facility:[facility] Start: 10-29-2023 ambulatory [facility] Romero NP Facility :[facility] Start: 09-03-2023 End: 09-03-[address] Pb Mcneil Work Phone: [facility] Work Phone: Start: 09-03-2023 End: 09-03-2023 ambulatory Kishor Tee Facility:[facility] Start: 08-20-2023 End: 08-20-2023 ambulatory Kishor Tee Facility:[facility] Start: 08-16-2023 End: 08-16-2023 ambulatory Jaime Fletcher Facility:[facility] Start: 08-09-2023 End: 08-09-2023 Emergency department patient visit Dr. Pb Mcneil Work Phone: [facility]-Emergency Department Work Phone: Start: 07-26-2023 End: 07-26-[address] Pb Mcneil Work Phone: [facility] Work Phone: Start: 07-26-2023 End: 07-26-2023 ambulatory Kishor Tee Facility:[facility] Start: 06-07-2023 End: 06-07-[address] Pb Mcneil Work Phone: [facility] Work Phone: Start: 06-07-2023 End: 06-07-[address] Pb Mcneil Work Phone: [facility] Work Phone: Start: 06-07-2023 End: 06-07-2023 ambulatory Pb Mcneil Facility:[facility] Start: 03-01-2023 End: 03-01-[address] Pb Mcneil Work Phone: [facility] Work Phone: Start: 12-14-2022 End: 12-14-[address] Pb Mcneil Work Phone: [facility] Work Phone: Start: 12-14-2022 End: 12-14-[address] Pb Mcneil Work Phone: [facility] Start: 11-13-2022 End: 11-13-[address] Pb Mcneil Work Phone: [facility] Start: 11-10-2022 Non-patient / Non-visit Dr. Pb Mcneil Work Phone: [facility] Start: 2022 End: 09-04-2022 Evaluation and management of inpatient Jordyn VELAZCO MD Facility:[facility] Start: 05-25-2022 End: 05-25-[address] Pb Mcneil Work Phone: [facility] Work Phone: Start: 05-25-2022 End: 05-25-[address] Pb Mcneil Work Phone: [facility]-Pulmonary Services/Neurology Start: 05-16-2022 End: 05-16-[address] Pb Mcneil Work Phone: [facility] Start: 03-20-2022 End: 03-20-[address] Pb Mcneil Work Phone: [facility] Start: 05-26-2004 End: 05-26-2004 Patient encounter procedure Hood Nagy Work Phone: [facility] Start: 05-26-2004 Results Only Hood Nagy Work Phone: [facility] Procedures Date Procedure Procedure Detail Performing Clinician Start: 12-14-2022 Diagnostic radiography of abdomen, decubitus and erect Dr. Pb Mcneil Work Phone: Start: 2022 History of placement of stent for coronary artery disease History of coronary artery stent placement Dr. Pb Mcneil Work Phone: Start: 09-12-2017 End: 09-18-2017 *Hepatic Function Panel Samaria read PA-C Work Phone: Start: 09-11-2017 End: 09-18-2017 Lipid panel [AGGREGATE] Samaria read PA-C Work Phone: Start: 03-12-2017 End: 03-12-2017 *Hepatic Function Panel Samaria read PA-C Work Phone: Start: 03-12-2017 End: 09-12-2017 DENTURE CONTOUR WIRE SPECIALIST Samaria Dunne PA-C Work Phone: Start: 03-12-2017 End: 09-12-2017 Follow Up Appt 6 months Samaria read PA-C Work Phone: Start: 03-12-2017 End: 03-12-2017 Lipid panel [AGGREGATE] Samaria read PA-C Work Phone: Start: 09-05-2016 End: 09-05-2016 Follow Up Appt 6 months Francheska Chu Start: 09-05-2016 End: 09-05-2016 MMM Jaime Fletcher MD Start: 07-08-2015 End: 02-22-2017 *Hepatic Function Panel Francheska Chu Start: 07-08-2015 End: 02-22-2017 Lipid panel [AGGREGATE] Francheska Chu Start: 01-12-2015 End: 01-13-2015 Documentation of current medications Jaime Fletcher MD Start: 01-12-2015 End: 01-12-2015 Follow Up Appt 6 months Francheska Chu Start: 01-12-2015 End: 01-12-2015 MMM Jaime Fletcher MD Start: 01-06-2015 End: 01-06-2015 *Hepatic Function Panel Francheska Chu Start: 01-06-2015 End: 01-06-2015 Lipid panel [AGGREGATE] Francheska Chu Start: 07-14-2014 End: 07-14-2014 DENTURE CONTOUR WIRE SPECIALIST Samaria Dunne PA-C Work Phone: Start: 07-14-2014 End: 07-14-2014 Follow Up Appt 6 months Samaria read PA-C Work Phone: Start: 07-14-2014 End: 08-05-2014 Follow Up Appt Other Samaria laurent PA-C Work Phone: Start: 07-01-2014 End: 08-05-2014 *Hepatic Function Panel Jaime Lew Francheska Fletcher Start: 07-01-2014 End: 08-05-2014 Lipid panel [AGGREGATE] Jaime Lew Francheska Fletcher Start: 01-13-2014 End: 01-27-2014 *Hepatic Function Panel Jaime Lew Francheska Fletcher Start: 01-13-2014 End: 01-13-2014 Follow Up Appt 6 months Jaime Francheska Aguilar Start: 01-13-2014 End: 01-27-2014 Lipid panel [AGGREGATE] Jaime Francheska Aguilar Start: 01-13-2014 End: 01-13-2014 ISAIAS Fletcher MD Start: 10-29-2013 End: 10-29-2013 MAHENDRA Fletcher MD Start: 10-29-2013 End: 08-05-2014 Echocardiography Jaime Fletcher MD Start: 10-29-2013 End: 10-29-2013 Follow Up Appt 6 weeks Jaime Fletcher MD Start: 10-01-2013 End: 08-05-2014 *Hepatic Function Panel Francheska Chu Start: 10-01-2013 End: 08-05-2014 Lipid panel [AGGREGATE] Francheska Chu Start: 06-11-2013 End: 10-29-2013 DENTURE CONTOUR WIRE SPECIALIST Samaria Dunne PA-C Work Phone: Start: 06-11-2013 End: 10-29-2013 Follow Up Appt 6 months Samaria read PA-C Work Phone: Start: 03-11-2013 End: 03-11-2013 Follow Up Appt 3 months Samaria read PA-C Work Phone: Start: 03-11-2013 End: 03-11-2013 MMM Samaria Dunne PA-C Work Phone: Start: 03-01-2013 End: 04-14-2013 *Hepatic Function Panel Francheska Chu Start: 03-01-2013 End: 04-14-2013 Lipid panel [AGGREGATE] Francheska Chu Start: 01-08-2013 End: 03-03-2013 Electrocardiogram, complete Samaria Salmon PA-C Work Phone: Start: 12-18-2012 End: 03-03-2013 *Hepatic Function Panel Francheska Chu Start: 12-18-2012 End: 03-03-2013 Follow Up Appt 6 months Francheska Chu Start: 12-18-2012 End: 03-03-2013 Lipid panel [AGGREGATE] Francheska Chu Start: 12-18-2012 End: 03-03-2013 MMM Jaime Fletcher MD Start: 08-01-2012 End: 09-26-2012 *Hepatic Function Panel Francheska Chu Start: 08-01-2012 End: 09-26-2012 Lipid panel [AGGREGATE] Francheska Chu Start: 05-01-2012 End: 05-01-2012 Follow Up Appt 6 months Francheska Chu Start: 02-19-2012 End: 03-05-2012 *Hepatic Function Panel Francheska Chu Start: 02-19-2012 End: 03-05-2012 Lipid panel [AGGREGATE] Francheska Chu Start: 05-26-2004 CONVERTED SURGICAL PATHOLOGY Hood Nagy Work Phone: Start: 11-14-1998 History of placement of stent for coronary artery disease History of coronary artery stent placement Dr. Pb Mcneil Work Phone: Plan of Treatment Date Care Activity Detail Author Start: 08-09-2023 [facility] Start: 09-20-2017 End: 09-20-2017 Appointment Appointment [facility] Work Phone: Start: 09-12-2017 End: 09-18-2017 *Hepatic Function Panel *Hepatic Function Panel [facility] Work Phone: Start: 09-11-2017 End: 09-18-2017 Lipid panel [AGGREGATE] *Lipid Profile CC PCP [facility] Work Phone: Start: 03-12-2017 End: 03-12-2017 Appointment Appointment [facility] Work Phone: Start: 03-12-2017 End: 03-12-2017 *Hepatic Function Panel *Hepatic Function Panel [facility] Work Phone: Start: 03-12-2017 End: 09-12-2017 DENTURE CONTOUR WIRE SPECIALIST DENTURE CONTOUR WIRE SPECIALIST [facility] Work Phone: Start: 03-12-2017 End: 09-12-2017 Follow Up Appt 6 months Follow Up Appt 6 months [facility] Work Phone: Start: 03-12-2017 End: 03-12-2017 Lipid panel [AGGREGATE] *Lipid Profile CC PCP [facility] Work Phone: Start: 09-05-2016 End: 09-05-2016 Follow Up Appt 6 months Follow Up Appt 6 months [facility] Work Phone: Start: 09-05-2016 End: 09-05-2016 MMM MMM [facility] Work Phone: Start: 07-08-2015 End: 02-22-2017 *Hepatic Function Panel *Hepatic Function Panel [facility] Work Phone: Start: 07-08-2015 End: 02-22-2017 Lipid panel [AGGREGATE] *Lipid Profile CC PCP [facility] Work Phone: Start: 01-29-2015 End: 01-06-2015 *Hepatic Function Panel *Hepatic Function Panel [facility] Work Phone: Start: 01-29-2015 End: 01-06-2015 Lipid panel [AGGREGATE] *Lipid Profile CC PCP [facility] Work Phone: Start: 01-12-2015 End: 01-12-2015 Follow Up Appt 6 months Follow Up Appt 6 months [facility] Work Phone: Start: 01-12-2015 End: 01-12-2015 MMM MMM [facility] Work Phone: Start: 07-14-2014 End: 07-14-2014 DENTURE CONTOUR WIRE SPECIALIST DENTURE CONTOUR WIRE SPECIALIST [facility] Work Phone: Start: 07-14-2014 End: 07-14-2014 Follow Up Appt 6 months Follow Up Appt 6 months [facility] Work Phone: Start: 07-14-2014 End: 08-05-2014 Follow Up Appt Other Follow Up Appt Other [facility] Work Phone: Start: 07-01-2014 End: 08-05-2014 *Hepatic Function Panel *Hepatic Function Panel [facility] Work Phone: Start: 07-01-2014 End: 08-05-2014 Lipid panel [AGGREGATE] *Lipid Profile CC PCP [facility] Work Phone: Start: 01-13-2014 End: 01-26-2014 *Hepatic Function Panel *Hepatic Function Panel [facility] Work Phone: Start: 01-13-2014 End: 01-13-2014 Follow Up Appt 6 months Follow Up Appt 6 months [facility] Work Phone: Start: 01-13-2014 End: 01-26-2014 Lipid panel [AGGREGATE] *Lipid Profile CC PCP [facility] Work Phone: Start: 01-13-2014 End: 01-13-2014 MMM MMM [facility] Work Phone: Start: 10-29-2013 End: 10-29-2013 DENTURE CONTOUR WIRE SPECIALIST DENTURE CONTOUR WIRE SPECIALIST [facility] Work Phone: Start: 10-29-2013 End: 10-29-2013 Echocardiography Echocardiogram (complete) [facility] Work Phone: Start: 10-29-2013 End: 10-29-2013 Follow Up Appt 6 weeks Follow Up Appt 6 weeks [facility] Work Phone: Start: 10-01-2013 End: 08-05-2014 *Hepatic Function Panel *Hepatic Function Panel [facility] Work Phone: Start: 10-01-2013 End: 08-05-2014 Lipid panel [AGGREGATE] *Lipid Profile CC PCP [facility] Work Phone: Start: 06-11-2013 End: 10-29-2013 DENTURE CONTOUR WIRE SPECIALIST DENTURE CONTOUR WIRE SPECIALIST [facility] Work Phone: Start: 06-11-2013 End: 10-29-2013 Follow Up Appt 6 months Follow Up Appt 6 months [facility] Work Phone: Start: 03-11-2013 End: 03-11-2013 Follow Up Appt 3 months Follow Up Appt 3 months [facility] Work Phone: Start: 03-11-2013 End: 03-11-2013 MMM MMM [facility] Work Phone: Start: 03-01-2013 End: 04-14-2013 *Hepatic Function Panel *Hepatic Function Panel [facility] Work Phone: Start: 03-01-2013 End: 04-14-2013 Lipid panel [AGGREGATE] *Lipid Profile [facility] Work Phone: Start: 01-08-2013 End: 03-03-2013 Electrocardiogram, complete EKG (In office) [facility] Work Phone: Start: 12-18-2012 End: 03-03-2013 *Hepatic Function Panel *Hepatic Function Panel [facility] Work Phone: Start: 12-18-2012 End: 03-03-2013 Follow Up Appt 6 months Follow Up Appt 6 months [facility] Work Phone: Start: 12-18-2012 End: 03-03-2013 Lipid panel [AGGREGATE] *Lipid Profile [facility] Work Phone: Start: 12-18-2012 End: 03-03-2013 MMM MMM [facility] Work Phone: Start: 08-01-2012 End: 09-26-2012 *Hepatic Function Panel *Hepatic Function Panel [facility] Work Phone: Start: 08-01-2012 End: 09-26-2012 Lipid panel [AGGREGATE] *Lipid Profile [facility] Work Phone: Start: 05-01-2012 End: 05-01-2012 Follow Up Appt 6 months Follow Up Appt 6 months [facility] Work Phone: Start: 02-19-2012 End: 03-05-2012 *Hepatic Function Panel *Hepatic Function Panel [facility] Work Phone: Start: 02-19-2012 End: 03-05-2012 Lipid panel [AGGREGATE] *Lipid Profile [facility] Work Phone: 24 Hour ECG [facility] Work Phone: Lipid 1996 panel - S nat or Plasma [facility] Patient Education [facility] Work Phone: Patient referral [facility] Work Phone: [facility] Immunizations Immunization Date Immunization Notes Care Provider Reggie jiménez 09-08-2017 tetanus toxoid, redu hilario diphtheria toxoid, and acellular pertussis vaccine, adsorbed Dr. Pb Mcneil Work Phone: [facility] 07-31-[address] Pb Mcneil Work Phone: [facility] 07-31-[address] Ro Mcneil Work Phone: [facility] Work Phone: 07-31-2013 pneumococcal vaccine , unspecified formulation Dr. Pb Mcneil Work Phone: [facility] Payers Date Payer Category Payer Medicare [id number] 2023 Self-pay [id number] 2023 Medicare [id number] 36 [id number] 2011 Medicare [id number] 1959 Medicare [id number] 1945 Unknown [id number] 2.16.8 [id number] Unknown [id number] 2.16.8 [id number] Unknown [id number] 2.16.8 [id number] Unknown [id number] 2.16.8 [id number] Unknown [id number] 2.16.8 [id number] Unknown [id number] 2.16.8 [id number] Unknown [id number] 2.16.8 [id number] Unknown [id number] 2.16.8 [id number] Unknown [id number] 2.16.8 [id number] Unknown [id number] 2.16.8 [id number] Unknown [id number] 2.16.8 [id number] Social History Date Type Detail Facility Tobacco smoking status NHIS Unknown if ever smoked [facility] Sex Assigned At Not on file [facility] Start: 05-16-2022 End: 08-14-2023 Tobacco smoking status NHIS Unknown if ever smoked [facility] Start: 10-21-[address] [facility] Start: 10-21-2013 Spouse/ Signif icant Other [facility] Start: 10-21-[address] Non-smoker [facility] Start: 1945 Sex Assigned At Male [facility] Medical Equipment Procedure Code Equipment Code Equipment Origin al Text Equipment Identifier Dates STENT,URETERAL 6 FR PIG [id number] FDA Start: 10-12-2017 STENT,URETERAL 6 FR PIG 6X26 FDA Start: 10-12-2017 STENT,URETERAL 6 FR PIG 6X26 FDA Start: 10-12-2017 STENT,URETERAL 6 FR PIG 6X26 FDA Start: 10-12-2017 STENT,URETERAL 6 FR PIG 6X26 FDA Start: 10-12-2017 STENT,URETERAL 6 FR PIG 6X26 FDA Start: 10-12-2017 STENT,URETERAL 6 FR PIG 6X26 FDA Start: 10-12-2017 STENT,URETERAL 6 FR PIG 6X26 FDA Start: 10-12-2017 STENT,URETERAL 6 FR PIG 6X26 FDA Start: 10-12-2017 STENT,URETERAL 6 FR PIG 6X26 FDA Start: 10-12-2017 STENT,URETERAL 6 FR PIG 6X26 FDA Start: 10-12-2017 STENT,URETERAL 6 FR PIG 6X26 FDA Start: 10-12-2017 Extra-gynaecolog ical surgical mesh, composite-polymer ()[id number] FDA Start: 08-20-2023 Evaluation note 2022 Note Date & Type Note Facility 2022 Evaluation note Diagnosis Onset Date Chronic heart failure with preserved ejection fraction (HFpEF) chronic Essential (primary) hypertension chronic History of coronary artery stent placement 2022 chronic Hyperlipidemia chronic [facility] Work Phone: Evaluation note 2022 Note Date & Type Note Facility 2022 Evaluation note Diagnosis Onset Date Essential (primary) hypertension chronic History of coronary artery stent placement 2022 chronic Hyperlipidemia chronic [facility] Work Phone: Evaluation note Note Date & Type Note Facility Evaluation note Diagnosis Onset Date Right inguinal pain acute PVCs (premature ventricular contractions) acute Chronic heart failure with preserved ejection fraction (HFpEF) chronic Essential (primary) hypertension chronic History of coronary artery stent placement November 14, 1998 chronic Hyperlipidemia chronic [facility] Work Phone: Evaluation note Note Date & Type Note Facility Evaluation note Diagnosis Onset Date Right inguinal hernia acute [facility] Work Phone: Hospital Discharge instructions Note Date & Type Note Facility Hospital Discharge instructions Additional Instructions Please call your surgeon's office tomorrow to schedule follow-up and surgery/repair of your hernia if that is what you choose. Take Tylenol as needed for mild pain. [facility] Work Phone: Summary Purpose Family History No Family History Records Found Relationship Condition Age at Onset Recorded Date/T raafel brother Coronary artery disease Unknown Diabetes mellitus Unknown mother Diabetes mellitus Unknown Advance Directives No Advanced Directives Records Found Advance Directive Response Recorded Date/ Time Advance Directives No October 21, 2013 1:59pm Living Will No October 04 2:46pm Power of Paint Roller Winder No October 04 021 2:46pm Advance Directive Response Recorded Date/ Time Name of Medical Power of Paint Roller Winder Ashwini Mtz August 09, 2023 5:22pm Advance Directives No October 21, 2013 12:59pm Living Will Yes August 09 5:22pm Power of Paint Roller Winder Yes August 09, 2023 5:22pm Advance Directive Response Recorded Date/ Time Advance Directives No October 21, 2013 1:59pm Living Will Yes August 14, 2 023 4:27pm Power of Paint Roller Winder Yes August 14, 2023 4:27pm Chief Complaint and Reason for Visit Chief Complaint UNILATERAL INGUINAL HERNIA 8M FU E-ORDER Reason for Visit Right inguinal pain PVCs (premature ventricular contractions) Chronic heart failure with preserved ejection fraction (HFpEF) Essential (primary) hypertension History of coronary artery stent placement Hyperlipidemia Chief Complaint UNILATERAL INGUINAL HERNIA 8M FU E-ORDER PVCS Reason for Visit Right inguinal pain PVCs (premature ventricular contractions) Chronic heart failure with preserved ejection fraction (HFpEF) Essential (primary) hypertension History of coronary artery stent placement Hyperlipidemia Chief Complaint Amb Documentation s/p ND @ [facility]) ABDOMINAL PAIN Reason for Visit Chronic heart failur e with preserved ejection fraction (HFpEF) Essential (primary) hypertension History of coronary artery stent placement Hyperlipidemia Chief Complaint 9 M FU Hyperlipidemia, unspecified Reason for Visit Essential (primary) hypertension History of coronary artery stent placement Hyperlipidemia Chief Complaint Hyperlipidemia, unsp ecified Hernia abd pain Reason for Visit Right inguinal herni a Chief Complaint HERNIA 11-20 Reason for Visit Right inguinal herni a Additional Source Comments Source Comments (unrecognize d section and content) In the event this informatio n is protected by the Federal Confidentiality of Alcohol and Drug Abuse Patient Records regulations: The Federal rules restrict any use of the information to criminally investigate or prosecute any alcohol or drug abuse patient.[facility] (unrecognized sect ion and content) No Status Records FoundNo Status Records FoundNo Status Records Found INFORMATION SOURCE (unrecogn ized section and content) DATE CREATED AUTHOR 12/24/2021 [facility] DATE CREATED AUTHOR AUTHOR'S ORGANIZ ATION 10/24/2022 [facility] DATE CREATED AUTHOR AUTHOR'S ORGANIZ ATION 04/20/2024 [facility] Goals (unrecognized section and content) Goals may be documented in a n alternate sectionGoals may be documented in an alternate sectionGoals may be documented in an alternate sectionGoals may be documented in an alternate sectionGoals may be documented in an alternate sectionGoals may be documented in an alternate section Care Teams (unrecognized sec tion and content) Team Status: Active Member Role Status Dates Dr. Pb Mcneil MD Family Provider Active Dr. Pb Mcneil MD Primary Care Provider Active Team Status: Inactive Member Role Status Dates Dr. Pb Mcneil MD Primary Care Provider, Referring Provider Active Dr. Jaime Fletcher MD Active Rosendo Romero [employer], [employer]-C Attending Provider Active Team Status: Active Member Role Status Dates Dr. Pb Mcneil MD Primary Care Provider Active Chela Flaherty Attending Provider Active Team Status: Inactive Member Role Status Dates Dr. Pb Mcneil MD Primary Care Provi jeannette, Attending Provider, Referring Provider Active Team Status: Inactive Member Role Status Dates Dr. Pb Mcneil MD Primary Care Provider, Referring Provider Active Dr. Jaime Fletcher MD Attending Provider Active Team Status: Inactive Member Role Status Dates Dr. Pb Mcneil MD Primary Care Provider, Attending Provider Active Team Status: Inactive Member Role Status Dates Dr. Pb Mcneil MD Primary Care Provider, Referring Provider Active Dr. Kishor Tee MD Attending Provider Active Team Status: Inactive Member Role Status Dates Dr. Pb Mcneil MD Primary Care Provider Active Dr. Isamar Baker DO Emergency Provider Active FOR RECORDS PERTAINING TO PATIENTS WHO ARE OR HAVE BEEN ENROLLED IN A CHEMICAL DEPENDENCY/SUBSTANCEABUSE PROGRAM, SOME INFORMATION MAY BE OMITTED. This clinical summary was aggregated from multiple sources. Caution should be exercised in using it in the provision of clinical care. This summary normalizes information from multiple sources, and as a consequence, information in this document may materially change the coding, format and clinical context of patient data. In addition, data may be omitted in some cases. CLINICAL DECISIONS SHOULD BE BASED ON THE PRIMARY CLINICAL RECORDS. [employer] provides no warranty or guarantee of the accuracy or completeness of information in this document.
== END | disposition home or self-care (01) ==
LOC: MTLAB 13:27
PROVIDERS: PCP Family Medicine; Referring Provider Family Medicine; Visit Provider Family Medicine
DX: Z00.00 Encounter for general adult medical examination without abnormal findings (principal); E78.5 Hyperlipidemia, unspecified
CPT/HCPCS: 36415; 80053; 80061; 84153